=== PATIENT | female | born 1945 | race Caucasian/White ===

== ENCOUNTER → 2017-06-08 | Outpatient (CLI) | payer MEDICARE ==
[~2017-06-08] MED LIST: CITA20; HYDR7.5T32 OR; LATA.005%O OU; SYNT25TA PO; TRAV0.00 EACH EYE; [UNRECOGNIZED DRUG - CODE] XX; [UNRECOGNIZED DRUG - CODE] XX
--- NOTE | 2017-06-09 09:56 | MB ---
cc: Henrik Shin MD DATE: 06/08/2017 VOLUMES: Dynamic. FVC and FEV1 normal, static. FRC, RV, TLC normal. TIDAL FLOWS: FEV 1% normal. FEF 25-75 moderately reduced. DIFFUSION: Moderately reduced. FLOW VOLUME LOOP: Terminal airflow obstruction. INTERPRETATION: Mild obstructive ventilatory defect with no hyperinflation and mild to moderate reduction in diffusion. No improvement postbronchodilator. R. MD PACO Valle/EVAN , 09:37 AM , 09:55 AM
== END ==
LOC: HRSP 10:51
PROVIDERS: ATTEND Internal Medicine
DX: J44.9 Chronic obstructive pulmonary disease, unspecified (principal)
CPT/HCPCS: 94060; 94618; 94726; 94729

== ENCOUNTER 2017-09-03 12:06 | Inpatient (IN) ==
[2017-09-03 13:07] LABS: Baso % (Auto) 0.7 % (0.0-2.0); Eos # (Auto) 0.2 th/mm3 (0.0-0.4); Eos % (Auto) 3.7 % (0.0-4.0); Hematocrit 39.1 % (35.0-46.0); Hemoglobin 13.2 gm/dL (11.6-15.3); Lymph # (Auto) 0.5 th/mm3 (1.0-4.8); Lymph % (Auto) 8.5 % (9.0-44.0); Mean Corpuscular HGB Conc 33.8 % (32.0-36.0); Mean Corpuscular Hemoglobin 33.2 pg (27.0-34.0); Mean Corpuscular Volume 98.1 fL (80.0-100.0); Mean Platelet Volume 7.1 fL (7.0-11.0); Mono # (Auto) 0.4 th/mm3 (0.0-0.9); Mono % (Auto) 6.5 % (0.0-8.0); Neut # (Auto) 5.1 th/mm3 (1.8-7.7); Neut % (Auto) 80.6 % (16.0-70.0); Platelet Count 268 th/mm3 (150-450); Red Blood Count 3.99 mil/mm3 (4.00-5.30); Red Cell Distribution Width 13.3 % (11.6-17.2); White Blood Count 6.4 th/mm3 (4.0-11.0)
--- NOTE | 2017-09-03 13:27 | XR ---
EXAM DATE: 09/03/2017 1:08 PM EDT AGE/SEX: 71 years / Female INDICATIONS: . Chest pain and shortness of breath. CLINICAL DATA: This is the patient's initial encounter. Patient reports that signs and symptoms have been present for 4 - 6 days and indicates a pain score of 5/10. MEDICAL/SURGICAL HISTORY: None. None. COMPARISON: [facility], XR CHEST PA AND LAT, 04/26/2017. . FINDINGS: There is mild haziness to the perivascular structures most likely pulmonary edema. Slight cardiomegaly seen. Focal consolidation is not seen. CONCLUSION: Slight to moderate CHF. Electronically signed by: Juani Hernadez MD 09/03/2017 1:26 PM EDT
[2017-09-03 13:32] LABS: Alanine Aminotransferase 16 U/L (10-53); Albumin 3.2 g/dL (3.4-5.0); Anion Gap 10 meq/L (5-15); Aspartate Aminotransferase 49 U/L (15-37); Blood Urea Nitrogen 10 mg/dL (7-18); Calcium 9.2 mg/dL (8.5-10.1); Carbon Dioxide 25.3 meq/L (21.0-32.0); Chloride 106 meq/L (98-107); Glomerular Filtration Rate 83 mL/min (>89); Glucose,Random 145 mg/dL (74-106); Magnesium 1.8 mg/dL (1.5-2.5); Potassium 3.4 meq/L (3.5-5.1); Sodium 141 meq/L (136-145)
[2017-09-03 13:33] LABS: Alkaline Phosphatase 96 U/L (45-117); Total Protein 6.9 g/dL (6.4-8.2)
--- NOTE | 2017-09-03 13:44 | ED ---
HPI General Chief Complaint: Shortness of Breath/Dyspnea Stated Complaint: Respiratory Time Seen by Provider: 09/03/17 12:40 Source: patient Mode of arrival: EMS Limitations: no limitations History of Present Illness Patient is a 71-year-old female presenting to the emergency department for evaluation of shortness of breath. Patient states it started Monday. Progressively the symptoms got worse and on Monday afternoon she started nebulizer treatments. She states initially this felt as if it was helping however she still became short of breath with any exertion. When symptoms did not resolve this morning after another nebulizer treatment patient called 911 was brought to the emergency department for evaluation. Patient stated that she cannot even walk to the bathroom without getting winded. She states her symptoms are similar to her COPD exacerbations in the past. Patient denies any chest pain but reports tightness as if she cannot get a deep breath. She also reports a productive cough. Patient denies any fever, chills, nausea, vomiting , headache. MD Complaint: shortness of breath and cough Context: occurred during exertion Severity: similar to previous episodes Consistency/Duration: constant and progressively worsening Relieving factors: rest Exacerbating factors: exertion Known history of: COPD Associated symptoms: cough, sputum production and chest congestion Treatment prior to arrival: bronchodilator Related Data Home Medications Medication Instructions Recorded Confirmed albuterol sulfate [ProAir HFA] 2 puff INHALATION Q4H PRN 09/03/17 09/03/17 alprazolam 0.5 mg PO DAILY PRN 09/03/17 09/03/17 ascorbic acid (vitamin C) [Vitamin 1,000 mg PO Q12H 09/03/17 09/03/17 C] brinzolamide-brimonidine 1 drp OPHTHALMIC (EYE) TID 09/03/17 09/03/17 [Simbrinza] calcium carbonate [Calcium 600] 600 mg PO BID 09/03/17 09/03/17 celecoxib [Celebrex] 100 mg PO BID 09/03/17 09/03/17 citalopram 40 mg PO DAILY 09/03/17 09/03/17 difluprednate [Durezol] 1 drp OPHTHALMIC (EYE) DAILY 09/03/17 09/03/17 fluticasone 2 spray INTRANASAL DAILY 09/03/17 09/03/17 fluticasone-vilanterol [Breo 1 inh INHALATION DAILY 09/03/17 09/03/17 Ellipta] gabapentin 300 mg PO BID 09/03/17 09/03/17 hydrocodone-acetaminophen 1 tab PO Q4-6H PRN 09/03/17 09/03/17 ipratropium-albuterol 3 ml INHALATION QID 09/03/17 09/03/17 levothyroxine 50 mcg PO DAILY 09/03/17 09/03/17 morphine 30 mg PO DAILY 09/03/17 09/03/17 tizanidine 2 mg PO BID PRN 09/03/17 09/03/17 vitamin Q76-[id number] acid 1 tab PO DAILY 09/03/17 09/03/17 Allergies Allergy/AdvReac Type Severity Reaction Status Date / Time levofloxacin [From Levaquin] AdvReac Swelling Verified 09/03/17 12:23 ADALAT Allergy Severe RACES HEART Uncoded 09/03/17 12:23 Review of Systems Except as stated in HPI: all other systems reviewed are negative [facility] Medical History Medical History Fracture of left wrist (Acute) Fracture, fibula (Acute) Fracture, ribs (Acute) Fractured sternum (Acute) H/O: hysterectomy (Acute) History of ectopic (Acute) History of fractured rib (Acute) COPD (chronic obstructive pulmonary disease) (Chronic) Surgical History Surgical History History of eye surgery (Acute) History of thoracotomy (Acute) History of tonsillectomy (Acute) Hx of partial adrenalectomy (Acute) Social History Social History Substance History: No History of Abuse Second Hand Smoke Exposure: No Smoking Status: Never smoker How Often Do You Have a Drink Containing Alcohol: Never Recent Travel in [facility] within the Last 8 Weeks: No Recent Out of Country Travel within the Last 8 Weeks: No Immunization History Tetanus Immunization: Unsure Hx Influenza Vaccine This Season: Yes Exam Narrative Exam Narrative: GENERAL: Well-developed, well-nourished, alert elderly female. Presenting in no acute distress. SKIN: Focused skin assessment warm/dry. HEAD: Atraumatic. Normocephalic. EYES: Pupils equal and round. No scleral icterus. No injection or drainage. ENT: No nasal bleeding or discharge. Mucous membranes pink and moist. NECK: Trachea midline. No JVD. CARDIOVASCULAR: Tachycardic. No murmur appreciated. RESPIRATORY: No accessory muscle use. Diminished in bases bilaterally. Tachypneic GASTROINTESTINAL: Abdomen soft, non-tender, nondistended. Hepatic and splenic margins not palpable. MUSCULOSKELETAL: No obvious deformities. No clubbing. No cyanosis. No edema. NEUROLOGICAL: Awake and alert. No obvious cranial nerve deficits. Motor grossly within normal limits. Normal speech. PSYCHIATRIC: Appropriate mood and affect; insight and judgment normal. Course Initial Documented Vital Signs Temperature 98.2 F 09/03/17 12:16 Pulse Rate 114 H 09/03/17 12:16 Respiratory Rate 23 09/03/17 12:16 Blood Pressure 145/97 H 09/03/17 12:16 Pulse Oximetry 93 L 09/03/17 12:16 Last Documented Vital Signs Temperature 98.2 F 09/03/17 12:16 Pulse Rate 99 H 09/03/17 16:00 Respiratory Rate 22 09/03/17 16:00 Blood Pressure 125/71 09/03/17 16:00 Pulse Oximetry 92 L 09/03/17 16:53 Medical Decision Making LISBETH Attestation LISBETH supervised visit: Yes Attestation: I, Dr. Cortez, have reviewed the advance practice practitioner's documentation and am in agreement, met with the patient face to face, made the diagnosis, and the medical decision making was done by me. *My assessment and Findings: This patient presented for dyspnea. She has been treated in the emergency department. She was then walked but failed a walking test. She is amenable to admission for further treatment. Please see Yris Cardenas NP's note for a more detailed H&P, final diagnosis and disposition MDM Narrative Medical decision making narrative: Patient is a 71-year-old female presenting for evaluation of shortness of breath. Patient is tachycardic and tachypneic on arrival. Labs and imaging ordered and pending. Chest x-ray shows slight to moderate congestive heart failure. Labs reviewed, no acute findings identified other than a BNP of 217. Patient was given Lasix 40 mg IV 1 dose. Patient was placed on 2 L of oxygen via nasal cannula, heart rate has trended down and her O2 sat is 95%. Patient was ambulated without oxygen and her oxygen saturation dropped to 71%. Patient will be admitted for COPD exacerbation. Discussed with Dr. Stein who accepted admit. Lab Data Lab results reviewed: Yes I reviewed the patient's lab results. Result diagrams: 09/03/17 12:50 09/03/17 12:50 Lab Results 09/03/17 09/03/17 09/03/17 Range/Units 12:50 12:50 14:55 WBC 6.4 (4.0-11.0) th/mm3 RBC 3.99 L (4.00-5.30) mil/mm3 Hgb 13.2 (11.6-15.3) gm/dL Hct 39.1 (35.0-46.0) % MCV 98.1 (80.0-100.0) fL MCH 33.2 (27.0-34.0) pg MCHC 33.8 (32.0-36.0) % RDW 13.3 (11.6-17.2) % Plt Count 268 (150-450) th/mm3 MPV 7.1 (7.0-11.0) fL Neut % (Auto) 80.6 H (16.0-70.0) % Lymph % (Auto) 8.5 L (9.0-44.0) % [place] % (Auto) 6.5 (0.0-8.0) % Eos % (Auto) 3.7 (0.0-4.0) % Baso % (Auto) 0.7 (0.0-2.0) % Neut # (Auto) 5.1 (1.8-7.7) th/mm3 Lymph # (Auto) 0.5 L (1.0-4.8) th/mm3 [place] # (Auto) 0.4 (0.0-0.9) th/mm3 Eos # (Auto) 0.2 (0.0-0.4) th/mm3 Baso # (Auto) 0.0 (0.0-0.2) th/mm3 WBC Differential . Differential Comment Auto diff final Sodium 141 (136-145) meq/L Potassium 3.4 L (3.5-5.1) meq/L Chloride 106 (98-107) meq/L Carbon Dioxide 25.3 (21.0-32.0) meq/L Anion Gap 10 (5-15) meq/L BUN 10 (7-18) mg/dL Creatinine 0.70 (0.50-1.00) mg/dL Estimated GFR 83 L (>89) mL/min Random Glucose 145 H (74-106) mg/dL Calcium 9.2 (8.5-10.1) mg/dL Magnesium 1.8 (1.5-2.5) mg/dL Total Bilirubin 0.7 (0.2-1.0) mg/dL AST 49 H (15-37) U/L ALT 16 (10-53) U/L Alkaline Phosphatase 96 (45-117) U/L Troponin I 0.04 (0.02-0.05) ng/mL B-Natriuretic Peptide (0-100) pg/mL Total Protein 6.9 (6.4-8.2) g/dL Albumin 3.2 L (3.4-5.0) g/dL 09/03/17 Range/Units 14:55 WBC (4.0-11.0) th/mm3 RBC (4.00-5.30) mil/mm3 Hgb (11.6-15.3) gm/dL Hct (35.0-46.0) % MCV (80.0-100.0) fL MCH (27.0-34.0) pg MCHC (32.0-36.0) % RDW (11.6-17.2) % Plt Count (150-450) th/mm3 MPV (7.0-11.0) fL Neut % (Auto) (16.0-70.0) % Lymph % (Auto) (9.0-44.0) % [place] % (Auto) (0.0-8.0) % Eos % (Auto) (0.0-4.0) % Baso % (Auto) (0.0-2.0) % Neut # (Auto) (1.8-7.7) th/mm3 Lymph # (Auto) (1.0-4.8) th/mm3 [place] # (Auto) (0.0-0.9) th/mm3 Eos # (Auto) (0.0-0.4) th/mm3 Baso # (Auto) (0.0-0.2) th/mm3 WBC Differential Differential Comment Sodium (136-145) meq/L Potassium (3.5-5.1) meq/L Chloride (98-107) meq/L Carbon Dioxide (21.0-32.0) meq/L Anion Gap (5-15) meq/L BUN (7-18) mg/dL Creatinine (0.50-1.00) mg/dL Estimated GFR (>89) mL/min Random Glucose (74-106) mg/dL Calcium (8.5-10.1) mg/dL Magnesium (1.5-2.5) mg/dL Total Bilirubin (0.2-1.0) mg/dL AST (15-37) U/L ALT (10-53) U/L Alkaline Phosphatase (45-117) U/L Troponin I (0.02-0.05) ng/mL B-Natriuretic Peptide 217 H (0-100) pg/mL Total Protein (6.4-8.2) g/dL Albumin (3.4-5.0) g/dL Imaging Data Radiologist's impression: Chest X-Ray 09/03/17 12:40 CONCLUSION: Slight to moderate CHF. Reviewed radiology reports Discharge Plan Discharge Disposition Patient Disposition: 30 Still Patient Discharge Condition Condition: Stable Discharge Details Diagnosis: COPD exacerbation Physicians Team ED Provider: Jhoana Cortez ED Midlevel Provider: Yris Lopes Primary Care Provider: Tono Delgado Other Providers: Satya Shin Rxs /Orders / Referrals /Forms Prescriptions: No Action ipratropium-albuterol 0.5 mg-3 mg(2.5 mg base)/3 mL Solution For Nebulization 3 ml INHALATION QID RF: 0 tizanidine 2 mg Tablet 2 mg PO BID PRN (Reason: Spasms) RF: 0 citalopram 40 mg Tablet 40 mg PO DAILY RF: 0 hydrocodone-acetaminophen 5-325 mg Tablet 1 tab PO Q4-6H PRN (Reason: Anxiety) RF: 0 ascorbic acid (vitamin C) [Vitamin C] 1,000 mg Tablet Extended Release 1,000 mg PO Q12H RF: 0 alprazolam 0.5 mg Tablet 0.5 mg PO DAILY PRN (Reason: Anxiety) RF: 0 calcium carbonate [Calcium 600] 600 mg calcium (1,500 mg) Tablet 600 mg PO BID RF: 0 levothyroxine 50 mcg Tablet 50 mcg PO DAILY RF: 0 gabapentin 300 mg Capsule 300 mg PO BID RF: 0 albuterol sulfate [ProAir HFA] 90 mcg/actuation Hfa Aerosol Inhaler 2 puff INHALATION Q4H PRN (Reason: Shortness Of Breath) RF: 0 celecoxib [Celebrex] 100 mg Capsule 100 mg PO BID RF: 0 morphine 15 mg Tablet 30 mg PO DAILY RF: 0 fluticasone 50 mcg/actuation [place],Suspension 2 spray INTRANASAL DAILY RF: 0 difluprednate [Durezol] 0.05 % Drops 1 drp OPHTHALMIC (EYE) DAILY RF: 0 vitamin Y80-hpmvp acid 500-400 mcg Tablet 1 tab PO DAILY RF: 0 brinzolamide-brimonidine [Simbrinza] 1-0.2 % Drops,Suspension 1 drp OPHTHALMIC (EYE) TID RF: 0 fluticasone-vilanterol [Breo Ellipta] 100-25 mcg/dose Blister With Device 1 inh INHALATION DAILY RF: 0 Status ED Status: Admitted Patient
[2017-09-03] MEDS ORDERED: Bisacodyl 10 MG Supp RECTAL PRN (17:21)
[2017-09-03] MEDS ORDERED: Azithromycin Inj 500 MG in Sodium Chlor 0.9% Inj 250 ML IV.SIG ONE (17:38)
[2017-09-03] MEDS: MethylPREDNISolone Sod Succinate Inj 125 MG/2 ML Vial IV.PUSH SCH ×2 (18:43→23:52)
--- NOTE | 2017-09-03 18:53 | P.HPIM ---
History of Present Illness Primary Care Physician: Tono Delgado DO History of Present Illness: 71-year-old female with a history of COPD, who presents with a 3 day history of progressively worsening shortness of breath on exertion, cough productive of bradley sputum. He says that her shortness of breath seem to be worse in the morning, however does not seem to be worse with lying down. Denies any fevers. She does report a single episode of nausea with nonbloody vomiting yesterday. Denies any sick contacts. She denies any lightheadedness, dizziness. Denies any diarrhea or constipation. She denies any peripheral edema. Denies any history of heart problems. She denies any chest pain. Review of Systems Family history reviewed with the patient and found to be currently noncontributory. All other systems reviewed negative except as stated in [facility]PI [facility] - History History Provided By: Patient - Medical History Medical History: Medical History (Last Updated 09/03/17 @ 13:47 by KIRSTIN Chavarria) Fracture of left wrist Fracture, fibula Fracture, ribs Fractured sternum H/O: hysterectomy History of ectopic History of fractured rib COPD (chronic obstructive pulmonary disease) - Surgical History Surgical History: Surgical History (Last Reviewed 09/03/17 @ 13:46 by KIRSTIN Chavarria) History of eye surgery History of thoracotomy History of tonsillectomy Hx of partial adrenalectomy - Tobacco History Second Hand Smoke Exposure: No Tobacco Use In Past 30 Days: No Smoking Status: Never smoker - Alcohol History How Often Do You Have a Drink Containing Alcohol: Never - Substance Use History Substance History: No History of Abuse - Travel History Recent Travel in the [place] Within the Last 8 Weeks: No Recent Travel Out of the Country Within the Last 8 Weeks: No - Immunization History Tetanus Immunization: Unsure Hx Influenza Vaccine This Season: Yes Medications and Allergies Active Medications: Active Medications Al Hydroxide/Mg Hydroxide (Milk Of Sahil Liq) 30 ml PO Q12H PRN PRN Reason: Mild Constipation Bisacodyl (Dulcolax Supp) 10 mg RECTAL DAILY PRN PRN Reason: SEVERE CONSITIPATION Furosemide (Lasix Inj) 20 mg IV.PUSH BID@0900,1800 GENIA Last Admin: 09/03/17 18:43 Dose: 20 mg Ipratropium [place] (Atrovent Neb) 0.5 mg NEB Q6HR NEB PRN PRN Reason: SHORTNESS OF BREATH Lactulose (Lactulose Liq) 30 ml PO DAILY PRN PRN Reason: SEVERE CONSITIPATION Levothyroxine Sodium (Synthroid) 50 mcg PO DAILY GENIA Methylprednisolone Sodium Succinate (Solumedrol Inj) 60 mg IV.PUSH Q6H GENIA Last Admin: 09/03/17 18:43 Dose: 60 mg Sennosides (Senokot) 17.2 mg PO Q12H PRN PRN Reason: Moderate Constipation Sodium Chloride (Ns Flush) 2 ml IV.FLUSH PRN PRN PRN Reason: FLUSH AFTER USING IV ACCESS Last Admin: 09/03/17 17:03 Dose: 2 ml Sodium Chloride (Ns Flush) 2 ml IV.FLUSH BID GENIA Sodium Chloride (Ns Flush) 2 ml IV.FLUSH PRN PRN PRN Reason: FLUSH AFTER USING IV ACCESS Allergies Allergy/AdvReac Type Severity Reaction Status Date / Time levofloxacin [From Levaquin] AdvReac Swelling Verified 09/03/17 12:23 ADALAT Allergy Severe RACES HEART Uncoded 09/03/17 12:23 Home Medications Medication Instructions Recorded Confirmed Type albuterol sulfate [ProAir HFA] 2 puff INHALATION Q4H PRN 09/03/17 09/03/17 History alprazolam 0.5 mg PO DAILY PRN 09/03/17 09/03/17 History artificial tear([id number]) 1 drp OPHTHALMIC (EYE) Q2-4H PRN 09/03/17 History ascorbic acid (vitamin C) [Vitamin 1,000 mg PO Q12H 09/03/17 09/03/17 History C] brinzolamide-brimonidine 1 drp OPHTHALMIC (EYE) TID 09/03/17 09/03/17 History [Simbrinza] calcium carbonate [Calcium 600] 600 mg PO BID 09/03/17 09/03/17 History celecoxib [Celebrex] 100 mg PO BID 09/03/17 09/03/17 History citalopram 40 mg PO DAILY 09/03/17 09/03/17 History difluprednate [Durezol] 1 drp OPHTHALMIC (EYE) DAILY 09/03/17 09/03/17 History fluticasone 2 spray INTRANASAL DAILY 09/03/17 09/03/17 History fluticasone-vilanterol [Breo 1 inh INHALATION DAILY 09/03/17 09/03/17 History Ellipta] gabapentin 300 mg PO BID 09/03/17 09/03/17 History hydrocodone-acetaminophen 1 tab PO Q4-6H PRN 09/03/17 09/03/17 History ipratropium-albuterol 3 ml INHALATION QID 09/03/17 09/03/17 History levothyroxine 50 mcg PO DAILY 09/03/17 09/03/17 History morphine 30 mg PO DAILY 09/03/17 09/03/17 History tizanidine 2 mg PO BID PRN 09/03/17 09/03/17 History vitamin I64-pvvao acid 1 tab PO DAILY 09/03/17 09/03/17 History Exam Vital signs: Vital Signs 09/03/17 12:16 09/03/17 13:42 09/03/17 16:00 Temperature 98.2 F Pulse Rate 114 H 100 H 99 H Respiratory Rate 23 18 22 Blood Pressure 145/97 H 125/71 Pulse Oximetry 93 L 95 94 L 09/03/17 16:53 Temperature Pulse Rate Respiratory Rate Blood Pressure Pulse Oximetry 92 L Intake & Output 09/02/17 09/03/17 09/03/17 18:59 06:59 18:59 Weight 54.885 kg Narrative: GENERAL: Patient sitting up in bed. Appears comfortable. Alert and oriented 3. SKIN: Warm and dry. HEAD: Atraumatic. Normocephalic. EYES: Pupils equal and round. No scleral icterus. No injection or drainage. ENT: No nasal bleeding or discharge. Mucous membranes pink and moist. NECK: Trachea midline. No JVD. CARDIOVASCULAR: Regular rate and rhythm. RESPIRATORY: No accessory muscle use. Wheezing and rhonchi bilaterally. Breath sounds equal bilaterally. GASTROINTESTINAL: Abdomen soft, non-tender, nondistended. Hepatic and splenic margins not palpable. MUSCULOSKELETAL: Extremities without clubbing, cyanosis, or edema. No obvious deformities. NEUROLOGICAL: Awake and alert. No obvious cranial nerve deficits. Motor grossly within normal limits. Five out of 5 muscle strength in the arms and legs. Normal speech. PSYCHIATRIC: Appropriate mood and affect; insight and judgment normal. Results - Labs CBC & Chem 7: 09/03/17 12:50 09/03/17 12:50 Labs: Short CBC 09/03/17 Range/Units 12:50 WBC 6.4 (4.0-11.0) th/mm3 Hgb 13.2 (11.6-15.3) gm/dL Hct 39.1 (35.0-46.0) % Plt Count 268 (150-450) th/mm3 BMP 09/03/17 12:50 Sodium 141 Potassium 3.4 L Chloride 106 Carbon Dioxide 25.3 BUN 10 Creatinine 0.70 Calcium 9.2 Cardiac Enzymes 09/03/17 Range/Units 14:55 Troponin I 0.04 (0.02-0.05) ng/mL Liver Function 09/03/17 Range/Units 12:50 Total Bilirubin 0.7 (0.2-1.0) mg/dL AST 49 H (15-37) U/L ALT 16 (10-53) U/L Alkaline Phosphatase 96 (45-117) U/L Albumin 3.2 L (3.4-5.0) g/dL - Imaging Impressions Chest X-Ray 09/03/17 12:40 CONCLUSION: Slight to moderate CHF. Caprini VTE Risk Assessment Caprini VTE Risk Assessment: Moderate/High Risk (score >= 2) Caprini Risk Assessment Model: Point Value = 1 Point Value = 2 Point Value = 3 Point Value = 5 Age 41-60 Minor surgery BMI > 25 kg/m2 Swollen legs Varicose veins or History of unexplained or recurrent spontaneous Oral contraceptives or hormone replacement Sepsis (< 1 month) Serious lung disease, including pneumonia (< 1 month) Abnormal pulmonary function Acute myocardial infarction Congestive heart failure (< 1 month) History of inflammatory bowel disease Medical patient at bed rest Age 61-74 Arthroscopic surgery Major open surgery (> 45 min) Laparoscopic surgery (> 45 min) Malignancy Confined to bed (> 72 hours) Immobilizing plaster cast Central venous access Age >= 75 History of VTE Family history of VTE Factor V Leiden Prothrombin [id number] Lupus anticoagulant Anticardiolipin antibodies Elevated serum homocysteine Heparin-induced thrombocytopenia Other congenital or acquired thrombophilia Stroke (< 1 month) Elective arthroplasty Hip, pelvis, or leg fracture Acute spinal cord injury (< 1 month) Prophylaxis Regimen: Total Risk Factor Score Risk Level Prophylaxis Regimen 0-1 Low Early ambulation 2 Moderate Order ONE of the following: *Sequential Compression Device (SCD) *Heparin 5000 units SQ BID 3-4 Higher Order ONE of the following medications: *Heparin 5000 units SQ TID *Enoxaparin/Lovenox 40 mg SQ daily (WT < 150 kg, CrCl > 30 mL/min) *Enoxaparin/Lovenox 30 mg SQ daily (WT < 150 kg, CrCl > 10-29 mL/min) *Enoxaparin/Lovenox 30 mg SQ BID (WT < 150 kg, CrCl > 30 mL/min) AND/OR *Sequential Compression Device (SCD) 5 or more Highest Order ONE of the following medications: *Heparin 5000 units SQ TID (Preferred with Epidurals) *Enoxaparin/Lovenox 40 mg SQ daily (WT < 150 kg, CrCl > 30 mL/min) *Enoxaparin/Lovenox 30 mg SQ daily (WT < 150 kg, CrCl > 10-29 mL/min) *Enoxaparin/Lovenox 30 mg SQ BID (WT < 150 kg, CrCl > 30 mL/min) AND *Sequential Compression Device (SCD) Assessment and Plan - Plan //Sepsis with tachypnea, tachycardia, pneumonia //Community-acquired pneumonia //Atypical pneumonia //COPD exacerbation //Potential CHF exacerbation. BNP 200s = Chest x-ray with bilateral airspace disease. Radiologist has read this as CHF , however could be atypical pneumonia versus aspiration pneumonia secondary to nausea and vomiting the day prior to admission. = Steroids, nebs. = We will treat for atypical pneumonia with azithromycin, as well as aspiration pneumonia to cover anaerobes with Unasyn IV. = BNP in the 200s. Schedule Lasix. Will place on fluid restrictions. No chest pain, however troponin not undetectable at 0.04 check EKG. Echocardiogram ordered and pending. = Continue duo nebs, steroids. Consult patient's cis coordinator, Dr. Shin. //Glaucoma. Continue patient's home medications. //Chronic pain. Will hold off on narcotics for now in the setting of COPD exacerbation. Discussed Condition With: Patient, nurse, ED physician.
[2017-09-03] MEDS: Ampicillin/Sulbactam Inj 3 GM in Sodium Chloride 0.9% Inj 100 ML IV.SIG SCH (22:32)
[2017-09-03] MEDS: ALPRAZolam 0.5 MG Tablet PO PRN (22:33)
[2017-09-04] MEDS: Ampicillin/Sulbactam Inj 3 GM in Sodium Chloride 0.9% Inj 100 ML IV.SIG SCH ×4 (05:21→23:06)
[2017-09-04] MEDS: MethylPREDNISolone Sod Succinate Inj 125 MG/2 ML Vial IV.PUSH SCH ×3 (05:39→23:04)
[2017-09-04] MEDS ORDERED: Acetaminophen 325 MG Tablet PO ONE (05:53)
[2017-09-04 07:07] LABS: Baso % (Auto) 0.1 % (0.0-2.0); Hematocrit 41.6 % (35.0-46.0); Hemoglobin 14.4 gm/dL (11.6-15.3); Lymph # (Auto) 0.7 th/mm3 (1.0-4.8); Lymph % (Auto) 8.2 % (9.0-44.0); Mean Corpuscular HGB Conc 34.6 % (32.0-36.0); Mean Corpuscular Hemoglobin 33.8 pg (27.0-34.0); Mean Corpuscular Volume 97.8 fL (80.0-100.0); Mono # (Auto) 0.3 th/mm3 (0.0-0.9); Mono % (Auto) 3.5 % (0.0-8.0); Neut # (Auto) 7.1 th/mm3 (1.8-7.7); Neut % (Auto) 88.2 % (16.0-70.0); Platelet Count 326 th/mm3 (150-450); Red Blood Count 4.25 mil/mm3 (4.00-5.30); Red Cell Distribution Width 13.2 % (11.6-17.2)
[2017-09-04 07:40] LABS: Albumin 3.7 g/dL (3.4-5.0); Anion Gap 9 meq/L (5-15); Aspartate Aminotransferase 44 U/L (15-37); Blood Urea Nitrogen 13 mg/dL (7-18); Carbon Dioxide 27.2 meq/L (21.0-32.0); Chloride 100 meq/L (98-107); Glomerular Filtration Rate 75 mL/min (>89); Glucose,Random 149 mg/dL (74-106); Potassium 3.9 meq/L (3.5-5.1); Sodium 136 meq/L (136-145)
[2017-09-04 07:43] LABS: Alanine Aminotransferase 19 U/L (10-53); Alkaline Phosphatase 104 U/L (45-117); Total Protein 7.8 g/dL (6.4-8.2)
[2017-09-04] MEDS ORDERED: Levothyroxine 50 MCG Tablet PO SCH (09:00)
[2017-09-04] MEDS ORDERED: BRINZOLAMIDE BRIMONIDINE EACH EYE SCH (09:00)
[2017-09-04] MEDS ORDERED: PT:SIMBRINZA OPTH SOL EACH EYE SCH (09:00)
[2017-09-04] MEDS ORDERED: DIFLUPREDNATE EACH EYE SCH (09:00)
--- NOTE | 2017-09-04 16:37 | P.PN ---
Subjective Interval history: Follow up: COPD, PNA, CHF Patient reports breathing is a little better, continues to have SOB. family member at bedside reports patient now able to talk in full sentences which is an improvement from yesterday Physical Exam Vital signs: Vital Signs 09/03/17 16:53 09/03/17 19:26 09/03/17 22:42 Temperature 98.3 F Pulse Rate 102 H 112 H Respiratory Rate 28 H Blood Pressure 120/73 157/103 H Pulse Oximetry 92 L 97 92 L 09/03/17 22:46 09/04/17 00:50 09/04/17 04:00 Temperature 97.4 F L 97.6 F Pulse Rate 101 H 71 88 Respiratory Rate 24 18 18 Blood Pressure 130/66 148/79 H Pulse Oximetry 95 93 L 09/04/17 08:00 09/04/17 08:59 Temperature 97.7 F Pulse Rate 79 94 H Respiratory Rate 16 22 Blood Pressure 130/71 Pulse Oximetry 95 92 L Intake & Output 09/03/17 09/04/17 09/04/17 18:59 06:59 18:59 Intake Total 340 / 340 240 / 240 Balance 340 / 340 240 / 240 Weight 54.885 kg 54.885 kg Intake: IV 100 / 100 Unasyn Inj 3 GM In NS Inj 100 100 / 100 ML @ 200 mls/hr IV.SIG Q6H [facility] Rx#:[id number] Oral 240 / 240 240 / 240 Other: # Voids 2 # Urine Diapers 1 Date of Last Bowel Movement 09/02/17 Weight On Admission 56.6 kg Narrative: GENERAL: Patient sitting up in bed. Appears comfortable. Alert and oriented 3. CARDIOVASCULAR: Regular rate and rhythm. RESPIRATORY: diminished and coarse bilaterally. GASTROINTESTINAL: Abdomen soft, non-tender, nondistended. MUSCULOSKELETAL: Extremities without clubbing, cyanosis, or edema. No obvious deformities. NEUROLOGICAL: Awake and alert. No obvious cranial nerve deficits. Motor grossly within normal limits. Five out of 5 muscle strength in the arms and legs. Normal speech. PSYCHIATRIC: Appropriate mood and affect; insight and judgment normal. Results - Labs CBC & Chem 7: 09/04/17 06:45 09/04/17 06:45 Laboratory Results - last 24 hr 09/03/17 09/03/17 09/04/17 19:20 21:55 06:45 WBC 8.0 RBC 4.25 Hgb 14.4 Hct 41.6 MCV 97.8 MCH 33.8 MCHC 34.6 RDW 13.2 Plt Count 326 MPV 7.0 Neut % (Auto) 88.2 H Lymph % (Auto) 8.2 L [place] % (Auto) 3.5 Eos % (Auto) 0.0 Baso % (Auto) 0.1 Neut # (Auto) 7.1 Lymph # (Auto) 0.7 L [place] # (Auto) 0.3 Eos # (Auto) 0.0 Baso # (Auto) 0.0 WBC Differential . Differential Comment Auto diff final Sodium Potassium Chloride Carbon Dioxide Anion Gap BUN Creatinine Estimated GFR Random Glucose Lactic Acid 2.4 H 2.1 H Calcium Total Bilirubin AST ALT Alkaline Phosphatase Total Protein Albumin 09/04/17 06:45 WBC RBC Hgb Hct MCV MCH MCHC RDW Plt Count MPV Neut % (Auto) Lymph % (Auto) [place] % (Auto) Eos % (Auto) Baso % (Auto) Neut # (Auto) Lymph # (Auto) [place] # (Auto) Eos # (Auto) Baso # (Auto) WBC Differential Differential Comment Sodium 136 Potassium 3.9 Chloride 100 Carbon Dioxide 27.2 Anion Gap 9 BUN 13 Creatinine 0.76 Estimated GFR 75 L Random Glucose 149 H Lactic Acid Calcium 9.0 Total Bilirubin 0.7 AST 44 H ALT 19 Alkaline Phosphatase 104 Total Protein 7.8 D Albumin 3.7 Assessment and Plan - Plan Sepsis with tachypnea, tachycardia, pneumonia Community-acquired pneumonia Atypical pneumonia COPD exacerbation Potential CHF exacerbation. BNP 200s = Chest x-ray with bilateral airspace disease. Radiologist has read this as CHF , however could be atypical pneumonia versus aspiration pneumonia secondary to nausea and vomiting the day prior to admission. = Steroids, nebs. = We will treat for atypical pneumonia with azithromycin, as well as aspiration pneumonia to cover anaerobes with Unasyn IV. = BNP in the 200s. Schedule Lasix. Will place on fluid restrictions. No chest pain, however troponin not undetectable at 0.04 check EKG. Echocardiogram ordered and pending. = Continue duo nebs, steroids. Consult patient's laser printing operator, Dr. Shin. //Glaucoma. Continue patient's home medications. //Chronic pain. resume home norco Discussed Condition With: Supervising physician Dr. Bajwa
--- NOTE | 2017-09-04 21:02 | ECHRPT ---
Indication: HEART FAILURE CONCLUSIONS Normal left ventricular size. Wall thickness is normal. The left ventricular systolic function is normal with an estimated ejection fraction in the range o f 50-55%. No definite regional wall motion abnormalities are present. Possible atrial septal aneurysm is present (benign finding). Trace mitral valve regurgitation. Slight aortic valve sclerosis is present. There is trace tricuspid valve regurgitation. The estimated pulmonary arterial pressure is 17 mmHg. BP: / HR: Rhythm: Technical Quality: FINDINGS LEFT VENTRICLE Normal left ventricular size. Wall thickness is normal. The left ventricular systolic function is normal with an estimated ejection fraction in the range o f 50-55%. No definite regional wall motion abnormalities are present. RIGHT VENTRICLE Normal right ventricular size and systolic function. LEFT ATRIUM The left atrial size is normal. RIGHT ATRIUM The right atrial size is normal. ATRIAL SEPTUM Possible atrial septal aneurysm is present (benign finding). AORTA The aortic root and proximal ascending aorta are normal in size on limited imaging. MITRAL VALVE Mitral annular calcification is present. Trace mitral valve regurgitation. AORTIC VALVE Slight aortic valve sclerosis is present. TRICUSPID VALVE There is trace tricuspid valve regurgitation. The estimated pulmonary arterial pressure is 17 mmHg. PULMONARY VALVE The pulmonary valve is not well visualized. VESSELS The inferior vena cava is normal in size. PERICARDIUM No pericardial effusion. Otto Maciel MD (Electronically Signed) Final Date:04 September 2017 21:02
--- NOTE | 2017-09-04 22:08 | ECG ---
Date Performed: 09/03/2017 Time Performed: 14:49:32 PTAGE: 71 years EKG: Sinus rhythm MINIMAL ST DEPRESSION BORDERLINE ECG PREVIOUS TRACING : 02/25/2000 19.09 Since the previous tracing, no significant change noted DOCTOR: Cedrick Mckeon Interpretating Date/Time 09/04/2017 22:06:15
[2017-09-04] MEDS: Levothyroxine 50 MCG Tablet PO SCH (23:06)
[2017-09-04] MEDS: Azithromycin Inj 500 MG in Sodium Chlor 0.9% Inj 250 ML IV.SIG SCH (23:07)
[2017-09-05] MEDS: MethylPREDNISolone Sod Succinate Inj 125 MG/2 ML Vial IV.PUSH SCH ×4 (04:37→22:54)
[2017-09-05] MEDS: Ampicillin/Sulbactam Inj 3 GM in Sodium Chloride 0.9% Inj 100 ML IV.SIG SCH ×4 (04:37→22:55)
[2017-09-05 07:17] LABS: Baso % (Auto) 0.1 % (0.0-2.0); Hematocrit 41.2 % (35.0-46.0); Lymph # (Auto) 0.7 th/mm3 (1.0-4.8); Lymph % (Auto) 5.7 % (9.0-44.0); Mean Corpuscular HGB Conc 33.9 % (32.0-36.0); Mean Corpuscular Hemoglobin 33.5 pg (27.0-34.0); Mean Corpuscular Volume 98.8 fL (80.0-100.0); Mean Platelet Volume 7.2 fL (7.0-11.0); Mono # (Auto) 0.5 th/mm3 (0.0-0.9); Mono % (Auto) 3.8 % (0.0-8.0); Neut # (Auto) 10.6 th/mm3 (1.8-7.7); Neut % (Auto) 90.4 % (16.0-70.0); Platelet Count 349 th/mm3 (150-450); Red Blood Count 4.17 mil/mm3 (4.00-5.30); Red Cell Distribution Width 13.4 % (11.6-17.2); White Blood Count 11.8 th/mm3 (4.0-11.0)
[2017-09-05 08:31] LABS: Calcium 9.1 mg/dL (8.5-10.1); Carbon Dioxide 28.7 meq/L (21.0-32.0); Potassium 3.5 meq/L (3.5-5.1)
[2017-09-05] MEDS: ALPRAZolam 0.5 MG Tablet PO PRN (10:02)
--- NOTE | 2017-09-05 11:28 | P.PN ---
Subjective Interval history: Follow up: COPD, PNA, CHF Patient reports breathing is a little better, continues to have SOB with exertion. Patient concerned regarding DC as she has a flight to [facility] planned on Monday Physical Exam Vital signs: Vital Signs 09/04/17 12:00 09/04/17 16:00 09/04/17 20:00 Temperature 97.5 F L 97.7 F 97.3 F L Pulse Rate 86 66 82 Respiratory Rate 16 18 18 Blood Pressure 136/71 104/52 L 105/54 L Pulse Oximetry 93 L 92 L 92 L 09/05/17 00:00 09/05/17 01:30 09/05/17 04:00 Temperature 97.2 F L 97.2 F L Pulse Rate 62 72 Respiratory Rate 17 15 17 Blood Pressure 109/58 L 108/58 L Pulse Oximetry 93 L 95 09/05/17 06:12 Temperature Pulse Rate 78 Respiratory Rate 22 Blood Pressure Pulse Oximetry Intake & Output 09/04/17 09/05/17 09/05/17 18:59 06:59 18:59 Intake Total 960 / 960 100 / 100 Balance 960 / 960 100 / 100 Intake: IV 100 / 100 100 / 100 Unasyn Inj 3 GM In NS Inj 100 100 / 100 100 / 100 ML @ 200 mls/hr IV.SIG Q6H [facility] Rx#:[id number] Oral 860 / 860 Other: # Voids 4 # Urine Diapers 1 Date of Last Bowel Movement 09/02/17 09/04/17 # Bowel Movements 2 Narrative: GENERAL: Patient sitting up in bed. Appears comfortable. Alert and oriented 3. CARDIOVASCULAR: Regular rate and rhythm. RESPIRATORY: diminished bilaterally. GASTROINTESTINAL: Abdomen soft, non-tender, nondistended. MUSCULOSKELETAL: Extremities without clubbing, cyanosis, or edema. No obvious deformities. NEUROLOGICAL: Awake and alert. No obvious cranial nerve deficits. Motor grossly within normal limits. Five out of 5 muscle strength in the arms and legs. Normal speech. PSYCHIATRIC: Appropriate mood and affect; insight and judgment normal. Results - Labs CBC & Chem 7: 09/05/17 05:56 09/05/17 05:56 Laboratory Results - last 24 hr 09/05/17 09/05/17 05:56 05:56 WBC 11.8 H RBC 4.17 Hgb 14.0 Hct 41.2 MCV 98.8 MCH 33.5 MCHC 33.9 RDW 13.4 Plt Count 349 MPV 7.2 Neut % (Auto) 90.4 H Lymph % (Auto) 5.7 L [place] % (Auto) 3.8 Eos % (Auto) 0.0 Baso % (Auto) 0.1 Neut # (Auto) 10.6 H Lymph # (Auto) 0.7 L [place] # (Auto) 0.5 Eos # (Auto) 0.0 Baso # (Auto) 0.0 WBC Differential . Differential Comment Auto diff final Sodium 139 Potassium 3.5 Chloride 101 Carbon Dioxide 28.7 Anion Gap 9 BUN 22 H Creatinine 0.79 Estimated GFR 72 L Random Glucose 132 H Calcium 9.1 Microbiology 09/04/17 19:15 Urine - Random Urine Streptococcus pneumoniae Antigen (M - Final Presumptive negative for streptococcus pneumoniae antigen, suggesting no current or recent infection. Infection due to Streptococcus pneumoniae cannot be ruled out since the antigen present in the sample may be below the detection limit of the test. 09/04/17 19:15 Urine - Random Urine Legionella Antigen - Final Presumptive negative for Legionella pneumophila serogroup 1 antigen in urine, suggesting no recent or recurrent infection. Infection due to Legionella cannot be ruled out since other serogroups and species may cause disease, antigen may not be present in urine in early infection, and the level of antigen present in the urine may be below the detection limit of the test. Assessment and Plan - Plan Sepsis with tachypnea, tachycardia, pneumonia Community-acquired pneumonia Atypical pneumonia COPD exacerbation - Chest x-ray with bilateral airspace disease. Radiologist has read this as CHF , however could be atypical pneumonia versus aspiration pneumonia secondary to nausea and vomiting the day prior to admission. - add mucinex - sputum culture pending - We will treat for atypical pneumonia with azithromycin, as well as aspiration pneumonia to cover anaerobes with Unasyn IV. - Continue duo nebs, steroids. Consult patient's eye care professional, Dr. Shin. Potential CHF exacerbation. BNP 200s on admission Echocardiogram: Normal left ventricular size. Wall thickness is normal. The left ventricular systolic function is normal with an estimated ejection fraction in the range of 50-55%. No definite regional wall motion abnormalities are present. Possible atrial septal aneurysm is present (benign finding). Trace mitral valve regurgitation. Slight aortic valve sclerosis is present. There is trace tricuspid valve regurgitation. The estimated pulmonary arterial pressure is 17 mmHg. - Patient has been on Lasix 20 mg IV BID, BUN 22 today - will DC lasix - DC fluid restriction - DC cardiac diet, allow caffeine, patient reports caffeine withdraw headache Glaucoma. Continue patient's home medications. Chronic pain. resume home carlos Discussed Condition With: Supervising physician Dr. Weber
--- NOTE | 2017-09-05 15:01 | MB ---
cc: Henrik Shin MD DATE: 09/05/2017 HISTORY OF PRESENT ILLNESS: Ms. Shukla is a 71-year-old white female known to me with mild COPD, was actually on a nebulized aerosol treatment once a day, in good condition until about a week ago when she developed increasing shortness of breath with cough and some sputum, generally clear. She had also been vaping marijuana liquid legitimately prescribed locally for severe lumbosacral degenerative arthritis and spinal stenosis. We had discussed that in the office and I explained to her that it could cause respiratory symptoms, conceivably an exacerbation of her disease. She stopped as soon as she began to get short of breath. Two days before admission, she was also exposed to "flu", a person that she apparently associates with who had [place] from [place] and had been sick and was treated for this respiratory illness. She had no hemoptysis, no chest pain, no swelling in her legs and she has no significant prior cardiovascular history. On presentation, she was dyspneic and chest x-ray revealed hazy perihilar infiltrate, so she was admitted for pneumonia. She has been started on Zithromax and Unasyn, IV corticosteroids and p.r.n. Atrovent and is feeling better. She has used Breo in the past, although she had discontinued that recently because her pulmonary functions were only very mildly abnormal. PAST MEDICAL HISTORY: A number of fractured bones in the past, a history of hysterectomy and ectopic and underlying COPD. PAST SURGICAL HISTORY: She had a thoracotomy for benign disease and an adrenalectomy for cancer. HABITS: She was a prior smoker, but has quit. No recent travel, although she is hoping to travel to [place] next week to visit family. ALLERGIES: LEVAQUIN. SOCIAL HISTORY: Lives alone, manages her own affairs. No alcohol use. No illicit drug use, although, as mentioned above, she had been prescribed liquid marijuana for inhalation. MEDICATIONS: Reviewed in the EMR. REVIEW OF SYSTEMS: Other than that noted above, she had had no nausea, vomiting, abdominal pain, change in bowel habits ,swelling in her legs, orthopnea, PND, chills or sweats. PHYSICAL EXAMINATION: GENERAL: She is awake, alert, very comfortable at rest. Says she is feeling better than she was on admission. VITAL SIGNS: She is afebrile. Her pulse is 80, her respirations are 18, and her O2 saturation is 95% on 2 liters. Blood pressure 108/60. HEENT: Sclerae are anicteric. NECK: Neck veins are flat. CHEST: Does reveal scattered congestion with some faint wheezes. CARDIAC: Regular heart rhythm. No harsh murmur. ABDOMEN: Soft. EXTREMITIES: No peripheral edema or calf tenderness. Sequential compression hose in place. IMAGING STUDIES: Chest x-ray reveals hazy perihilar infiltrates. LABORATORY DATA: White count on admission was 6400, currently 11.8; hemoglobin normal. BUN and creatinine normal. BNP was very mildly elevated at 217. Echocardiogram is normal. MICROBIOLOGY STUDIES: She has a sputum pending. Strep pneumonia and legionella antigens, urinary negative. DISCUSSION: Ms. Shukla presented with what appears to be an exacerbation of underlying chronic obstructive pulmonary disease which based on prior pulmonary functions was actually quite mild, but she was quite symptomatic on presentation. She is improved with bronchodilators and corticosteroids as well as antibiotics. There may be some relationship to the vaping of marijuana liquid, so she is going to discontinue that. I explained to her today that we will continue this therapy for the next 24-48 hours, but I cannot be certain that she will be able to make this [place]antic flight scheduled for early next week. I will do a followup chest x-ray tomorrow as well as a 6-minute walk test. I have added Breo back into her regimen and a routine of nebulized aerosol treatments t.i.d. If stable tomorrow, we will switch her to oral medication and see how she does. Further diagnostic and/or therapeutic intervention will depend on her ongoing clinical course. R. MD PACO Valle/ROSAS , 02:26 PM , 02:36 PM
[2017-09-05] MEDS: guaiFENesin 600 MG ER Tablet PO SCH ×2 (16:24→22:52)
[2017-09-05] MEDS: Levothyroxine 50 MCG Tablet PO SCH (22:52)
[2017-09-06] MEDS: Azithromycin Inj 500 MG in Sodium Chlor 0.9% Inj 250 ML IV.SIG SCH ×2 (06:32→22:26)
[2017-09-06] MEDS: MethylPREDNISolone Sod Succinate Inj 125 MG/2 ML Vial IV.PUSH SCH ×4 (06:32→21:01)
[2017-09-06] MEDS: Ampicillin/Sulbactam Inj 3 GM in Sodium Chloride 0.9% Inj 100 ML IV.SIG SCH ×4 (06:33→21:00)
[2017-09-06 07:00] LABS: Baso % (Auto) 0.1 % (0.0-2.0); Hematocrit 39.2 % (35.0-46.0); Hemoglobin 13.6 gm/dL (11.6-15.3); Lymph # (Auto) 0.7 th/mm3 (1.0-4.8); Lymph % (Auto) 7.8 % (9.0-44.0); Mean Corpuscular HGB Conc 34.8 % (32.0-36.0); Mean Corpuscular Volume 97.6 fL (80.0-100.0); Mean Platelet Volume 7.1 fL (7.0-11.0); Mono # (Auto) 0.4 th/mm3 (0.0-0.9); Mono % (Auto) 4.6 % (0.0-8.0); Neut # (Auto) 8.4 th/mm3 (1.8-7.7); Neut % (Auto) 87.5 % (16.0-70.0); Platelet Count 306 th/mm3 (150-450); Red Blood Count 4.02 mil/mm3 (4.00-5.30); Red Cell Distribution Width 13.4 % (11.6-17.2); White Blood Count 9.6 th/mm3 (4.0-11.0)
[2017-09-06 07:09] LABS: Calcium 8.9 mg/dL (8.5-10.1); Carbon Dioxide 30.7 meq/L (21.0-32.0); Potassium 3.9 meq/L (3.5-5.1)
--- NOTE | 2017-09-06 09:51 | XR ---
EXAM DATE: 09/06/2017 9:45 AM EDT AGE/SEX: 71 years / Female INDICATIONS: . Pneumonia. CLINICAL DATA: This is the patient's initial encounter. Patient reports that signs and symptoms have been present for 3 days and indicates a pain score of 0/10. MEDICAL/SURGICAL HISTORY: Chronic obstructive pulmonary disease. emphysema, asthma , chronic br onchitis. None. COMPARISON: [facility] [place], CHEST 2V PA&LAT, 09/03/2017. . FINDINGS: There is slight improved aeration though patchy bilateral airspace disease and interstitial infiltrat e remaining. S-shaped thoracolumbar scoliosis and degenerative changes. Remote right-sided rib fractu res. Plate and screw fixation of the clavicle on the left. CONCLUSION: Slight improved aeration. Electronically signed by: Miguel Angel Vann MD 09/06/2017 9:49 AM EDT
[2017-09-06] MEDS: guaiFENesin 600 MG ER Tablet PO SCH ×2 (10:06→21:01)
[2017-09-06] MEDS: ALPRAZolam 0.5 MG Tablet PO PRN (13:40)
--- NOTE | 2017-09-06 14:55 | P.PN ---
Subjective Interval history: Follow up for pneumonia, COPD. The patient reports mild improvement overnight. Still with a cough, now mostly dry and nonproductive. Still with wheezing, slowly improving. Denies fevers/chills. Denies any current shortness of breath while at rest but states she frequently gets "spells" of dyspnea, worse with exertion. O2 sat 97% on 2L NC. She states she attempted walk test yesterday and her O2 sat dropped to 82%. She does not wear oxygen at home. She has no other medical complaints at this time. Physical Exam Vital signs: Vital Signs 09/05/17 15:51 09/05/17 16:00 09/05/17 17:24 Temperature 97.6 F Pulse Rate 63 Respiratory Rate 20 Blood Pressure 124/60 Pulse Oximetry 92 L 92 L Pulse Oximetry [Exertion on Room Air] 82 L Pulse Oximetry [Resting on Room Air] 88 L Pulse Oximetry [Resting with Oxygen] 92 L 09/05/17 20:00 09/06/17 00:00 09/06/17 01:30 Temperature 97.6 F 97.6 F Pulse Rate 77 58 L Respiratory Rate 21 20 15 Blood Pressure 131/71 124/59 L Pulse Oximetry 93 L 93 L Pulse Oximetry [Exertion on Room Air] Pulse Oximetry [Resting on Room Air] Pulse Oximetry [Resting with Oxygen] 09/06/17 04:00 09/06/17 08:00 09/06/17 10:11 Temperature 97.3 F L 97.6 F Pulse Rate 67 62 Respiratory Rate 19 24 Blood Pressure 128/59 L 139/63 Pulse Oximetry 97 97 97 Pulse Oximetry [Exertion on Room Air] Pulse Oximetry [Resting on Room Air] Pulse Oximetry [Resting with Oxygen] 09/06/17 13:15 Temperature Pulse Rate 79 Respiratory Rate 18 Blood Pressure Pulse Oximetry Pulse Oximetry [Exertion on Room Air] Pulse Oximetry [Resting on Room Air] Pulse Oximetry [Resting with Oxygen] Intake & Output 09/05/17 09/06/17 09/06/17 18:59 06:59 18:59 Intake Total 920 / 920 700 / 700 100 / 100 Balance 920 / 920 700 / 700 100 / 100 Weight 54.88 kg Intake: IV 200 / 200 100 / 100 100 / 100 Unasyn Inj 3 GM In NS Inj 100 200 / 200 100 / 100 100 / 100 ML @ 200 mls/hr IV.SIG Q6H [facility] Rx#:[id number] Oral 720 / 720 600 / 600 Other: # Voids 4 2 Date of Last Bowel Movement 09/04/17 09/04/17 # Bowel Movements 2 Narrative: GENERAL: Well-nourished, well-developed pleasant female patient in [facility]. SKIN: Warm and dry. No rash. HEENT: Normocephalic. Atraumatic. Pupils equal and round. Mucous membranes pink and moist. CARDIOVASCULAR: Regular rate and rhythm. No murmur appreciated. RESPIRATORY: No accessory muscle use. Expiratory wheezes throughout with scattered rhonchi, worse at the bases. Breath sounds equal bilaterally. GASTROINTESTINAL: Abdomen soft, non-tender, nondistended. Normoactive bowel sounds x4. MUSCULOSKELETAL: No obvious deformities. Extremities without clubbing, cyanosis , or edema. NEUROLOGICAL: Awake and alert. No obvious cranial nerve deficits. Motor grossly within normal limits. Moving all extremities spontaneously. Normal speech. PSYCHIATRIC: Appropriate mood and affect; insight and judgment normal. Results - Labs CBC & Chem 7: 09/06/17 06:03 09/06/17 06:03 Laboratory Results - last 24 hr 09/06/17 09/06/17 06:03 06:03 WBC 9.6 RBC 4.02 Hgb 13.6 Hct 39.2 MCV 97.6 MCH 34.0 MCHC 34.8 RDW 13.4 Plt Count 306 MPV 7.1 Neut % (Auto) 87.5 H Lymph % (Auto) 7.8 L [place] % (Auto) 4.6 Eos % (Auto) 0.0 Baso % (Auto) 0.1 Neut # (Auto) 8.4 H Lymph # (Auto) 0.7 L [place] # (Auto) 0.4 Eos # (Auto) 0.0 Baso # (Auto) 0.0 WBC Differential . Differential Comment Auto diff final Sodium 139 Potassium 3.9 Chloride 103 Carbon Dioxide 30.7 Anion Gap 5 BUN 18 Creatinine 0.67 Estimated GFR 87 L Random Glucose 144 H Calcium 8.9 Microbiology 09/05/17 05:38 Sputum - Expectorated Sputum Gram Stain - Final 09/05/17 05:38 Sputum - Expectorated Sputum Sputum Culture - Preliminary Rare growth normal respiratory mathew at 24 hours - Imaging Impressions Chest X-Ray 09/06/17 00:00 CONCLUSION: Slight improved aeration. Assessment and Plan - Plan 71-year-old female with history of COPD presents with 3 day history of worsening shortness of breath, productive cough. Sepsis with Community-acquired pneumonia vs atypical pneumonia (tachypneic, tachycardic upon arrival) Acute COPD exacerbation -CXR reviewed, shows bilateral airspace disease; Radiologist read this as CHF, however could be atypical pneumonia versus aspiration pneumonia secondary to nausea and vomiting the day prior to admission. -Treat for atypical pneumonia with Azithro, and cover for aspiration pneumonia with IV Unasyn (patient with N/V prior to admission) -Continue mucinex -Sputum culture pending -Continue duo nebs -Continue steroids with IV Solumedrol 60mg q6h -Consult patient's cargo station worker, Dr. Shin, appreciate recommendations -Patient failed home O2 walk test with O2 sat 82%; home O2 ordered Potential CHF exacerbation. -BNP 200s on admission -Echocardiogram shows EF 50-55%, trace mitral valve regurgitation; trace tricuspid valve regurgitation. -Patient has been on Lasix 20 mg IV BID, no signs of fluid overload, will DC lasix -DC fluid restriction -DC cardiac diet, allow caffeine, patient reports caffeine withdraw headache -stable, no signs of fluid overload, doubt CHF Glaucoma: Continue patient's home medications. Chronic pain: resume home norco DVT Prophylaxis: Lovenox sq Discharge Planning: Discharge pending further clinical improvement, arrangements of home oxygen, and clearance from pulmonology. Possible d/c in 1-2 days if clinically improved.
[2017-09-06] MEDS: Levothyroxine 50 MCG Tablet PO SCH (21:01)
[2017-09-07] MEDS: MethylPREDNISolone Sod Succinate Inj 125 MG/2 ML Vial IV.PUSH SCH ×4 (03:40→22:34)
[2017-09-07] MEDS: Ampicillin/Sulbactam Inj 3 GM in Sodium Chloride 0.9% Inj 100 ML IV.SIG SCH ×4 (03:41→22:37)
[2017-09-07] MEDS ORDERED: Enoxaparin Inj 40 MG/0.4 ML Syringe SQ SCH (09:00)
[2017-09-07] MEDS: guaiFENesin 600 MG ER Tablet PO SCH ×2 (10:01→22:36)
--- NOTE | 2017-09-07 10:16 | P.PN ---
Subjective Interval history: Nursing denies any deterioration since last night. Patient reports she is able to ambulate to the bathroom and within her room without difficulty. She says at baseline she is able to swim with only periodic rests needed. Physical Exam Vital signs: Vital Signs 09/06/17 12:00 09/06/17 13:15 09/06/17 16:00 Temperature 97.6 F 97.7 F Pulse Rate 88 79 69 Respiratory Rate 24 18 20 Blood Pressure 118/56 L 145/65 H Pulse Oximetry 95 95 09/06/17 19:04 09/06/17 19:49 09/06/17 20:00 Temperature 98.0 F Pulse Rate 73 69 79 Respiratory Rate 18 20 Blood Pressure 139/64 Pulse Oximetry 95 95 09/06/17 20:56 09/06/17 23:46 09/07/17 02:00 Temperature 97.5 F L Pulse Rate 71 54 L Respiratory Rate 18 Blood Pressure 130/73 Pulse Oximetry 95 97 09/07/17 04:03 09/07/17 05:03 09/07/17 08:00 Temperature 97.4 F L 97.3 F L Pulse Rate 63 60 68 Respiratory Rate 18 14 Blood Pressure 142/63 H 125/58 L Pulse Oximetry 96 94 L 09/07/17 09:15 Temperature Pulse Rate 68 Respiratory Rate 12 Blood Pressure Pulse Oximetry 95 Intake & Output 09/06/17 09/07/17 09/07/17 18:59 06:59 18:59 Intake Total 1380 / 1380 830 / 830 100 / 100 Balance 1380 / 1380 830 / 830 100 / 100 Weight 54.8 kg Intake: IV 550 / 550 350 / 350 100 / 100 Unasyn Inj 3 GM In NS Inj 100 300 / 300 100 / 100 100 / 100 ML @ 200 mls/hr IV.SIG Q6H [facility] Rx#:[id number] Azithromycin Inj 500 MG In NS 250 / 250 250 / 250 Inj 250 ML @ 250 mls/hr IV.SIG Q24H [facility] Rx#:[id number] Oral 830 / 830 480 / 480 Other: # Voids 3 2 Date of Last Bowel Movement 09/06/17 09/06/17 # Bowel Movements 2 0 Narrative: Good aeration, unlabored breathing, expiratory wheezing heard with mildly diminished breath sounds sounds in the bases No acute distress, awake, alert, on nasal cannula Results - Labs CBC & Chem 7: 09/06/17 06:03 09/06/17 06:03 Microbiology 09/05/17 05:38 Sputum - Expectorated Sputum Gram Stain - Final 09/05/17 05:38 Sputum - Expectorated Sputum Sputum Culture - Final Light growth normal respiratory mathew Assessment and Plan - Plan 71-year-old female with history of COPD presents with 3 day history of worsening shortness of breath, productive cough. Sepsis with Community-acquired pneumonia vs atypical pneumonia (tachypneic, tachycardic upon arrival) - BC negative. - tx PNA as below Acute COPD exacerbation 2/2 PNA Acute hypoxic respiratory failure -Improving O2 levels, now on 1 L NC at 95% -Treat for atypical pneumonia with Azithro, and cover for aspiration pneumonia with IV Unasyn (patient with N/V prior to admission) -Continue mucinex -Sputum culture and urinary antigens negative -Continue duo nebs -We will de-escalate steroids to every q8 hrs -Pulmonology following - REPEAT walk test in next 24-48 hrs. may eventually stabilize on RA. Glaucoma: Continue patient's home medications. Chronic pain: home norco DVT Prophylaxis: Lovenox sq Discharge Planning: per clearance with Gen surg
[2017-09-07] MEDS: ALPRAZolam 0.5 MG Tablet PO PRN (12:10)
--- NOTE | 2017-09-07 12:31 | MD ---
cc: Henrik Shin MD DATE OF DISCHARGE: 09/07/2017 HOSPITAL COURSE: Ms. Shukla is a 71-year-old white female known to me with COPD who had been very stable up to the time of admission. She was exposed to a sick person about 3 days before she developed cough with sputum and increasing shortness of breath. She was also vaping marijuana for chronic low back pain, which may have been a contributing factor. She presented and was admitted with a chest x-ray, which revealed a hazy perihilar infiltrates consistent with pneumonia. Her hospital course was uncomplicated. She was treated with intravenous antibiotics, Albuterol and Atrovent nebulization and was started back on Breo, which she had been on as an outpatient. IV steroids were also included and she has been on oxygen. The patient had hoped to travel next week. She had a preplanned trip to [facility], but unfortunately oxygen saturations are still dropping into the low 80s with minimal exertion and she will have to cancel that trip and reschedule. She certainly cannot travel at this point. PHYSICAL EXAM: However, she is much improved, stable. Room air saturation at rest is about 90%, which is an improvement. She is afebrile. Her blood pressure is 125/60. She is breathing at about 12-14 per minute and her heart rate is 70. CHEST: Actually quite clear, a few basilar rales, but no other congestion, no rhonchi, no wheezing. No edema. Sputum revealed light normal mathew that was on antibiotics. Pneumococcal and legionella antigens were negative. White count is stable at 9.6. I will be away for several days, so I have reviewed my discharge plan with the patient today. She will have to go home on oxygen. I suggest she uses it continuously until I see her back in the office in about 7-10 days. She will need a followup chest x-ray as the chest x-ray we did here still shows patchy infiltrates, although it is stable. She will need to be changed over to an oral antibiotic to complete 10 days of therapy and oral prednisone tapered over 7-10 days. She will continue her nebulizer at home, Breo, as well. I will defer discharge plan otherwise to the hospitalist. Hopefully, over the next 48-72 hours, she will be ready to go. I have reviewed all of this with the nurse, as well. She knows to call my office next week for followup. R. MD PACO Valle/LUZMARIA , 12:15 PM , 12:22 PM
--- NOTE | 2017-09-07 14:59 | P.DCO ---
- Physical Therapy Order: Evaluate and treat - Speech Therapy Order: To improve: Speech and communication skills, Swallowing - Home Health Nursing Order: Signs/symptoms of disease process, Nursing assessment with vital signs - Certification I have seen patient Rosy Shukla on 09/07/17. My clinical findings support the need for the requested home health care services because: Deconditioned with increased weakness I certify that my clinical findings support that this patient is homebound because: Unsafe to leave home unassisted
[2017-09-07] MEDS: Levothyroxine 50 MCG Tablet PO SCH (22:36)
[2017-09-08] MEDS: Azithromycin Inj 500 MG in Sodium Chlor 0.9% Inj 250 ML IV.SIG SCH (00:11)
[2017-09-08] MEDS: Ampicillin/Sulbactam Inj 3 GM in Sodium Chloride 0.9% Inj 100 ML IV.SIG SCH ×2 (05:27→09:34)
[2017-09-08] MEDS: MethylPREDNISolone Sod Succinate Inj 125 MG/2 ML Vial IV.PUSH SCH (05:28)
[2017-09-08] MEDS: guaiFENesin 600 MG ER Tablet PO SCH ×2 (08:37→20:11)
[2017-09-08 09:04] VITALS: RESP 18
[2017-09-08] MEDS ORDERED: Dextrose 50% in Water 50 ML Vial IV.PUSH PRN (11:30)
--- NOTE | 2017-09-08 11:33 | P.PN ---
Subjective Interval history: F/U [employer] and PNA. Dyspnea on exertion even with minimal activity. Has not been ambulating in the hallway. On nasal cannula. Peak flow of 1500 Physical Exam Vital signs: Vital Signs 09/07/17 12:00 09/07/17 14:11 09/07/17 14:12 Temperature 97.5 F L Pulse Rate 81 74 Respiratory Rate 16 12 Blood Pressure 141/75 H Pulse Oximetry 94 L 95 09/07/17 16:00 09/07/17 19:51 09/07/17 20:00 Temperature 97.8 F 97.7 F Pulse Rate 73 67 76 Respiratory Rate 16 18 Blood Pressure 130/63 145/53 H Pulse Oximetry 93 L 94 L 09/07/17 20:02 09/07/17 20:20 09/07/17 22:00 Temperature Pulse Rate 74 Respiratory Rate 16 18 Blood Pressure Pulse Oximetry 97 09/08/17 00:04 09/08/17 01:26 09/08/17 04:02 Temperature Pulse Rate 66 60 Respiratory Rate 18 Blood Pressure Pulse Oximetry 09/08/17 05:29 09/08/17 06:07 09/08/17 08:00 Temperature 97.4 F L 97.6 F Pulse Rate 58 L 63 Respiratory Rate 18 17 16 Blood Pressure 166/75 H 155/74 H Pulse Oximetry 95 09/08/17 09:00 09/08/17 09:02 Temperature Pulse Rate 80 84 Respiratory Rate 18 Blood Pressure Pulse Oximetry 95 Intake & Output 09/07/17 09/08/17 09/08/17 18:59 06:59 18:59 Intake Total 300 / 300 100 / 100 350 / 350 Balance 300 / 300 100 / 100 350 / 350 Intake: IV 300 / 300 100 / 100 350 / 350 Unasyn Inj 3 GM In NS Inj 100 300 / 300 100 / 100 100 / 100 ML @ 200 mls/hr IV.SIG Q6H [facility] Rx#:[id number] Azithromycin Inj 500 MG In NS 250 / 250 Inj 250 ML @ 250 mls/hr IV.SIG Q24H [facility] Rx#:[id number] Other: # Voids 6 Date of Last Bowel Movement 09/07/17 09/07/17 09/07/17 # Bowel Movements 2 Narrative: Good aeration, unlabored breathing, no expiratory wheezing heard No acute distress, awake, alert, on nasal cannula Results - Labs CBC & Chem 7: 08/01/18 06:03 09/06/17 06:03 Microbiology 09/05/17 05:38 Sputum - Expectorated Sputum Gram Stain - Final 09/05/17 05:38 Sputum - Expectorated Sputum Sputum Culture - Final Light growth normal respiratory mathew - Imaging ITS Impressions Chest X-Ray 09/06/17 00:00 CONCLUSION: Slight improved aeration. - Procedures none Assessment and Plan - Assessment (1) COPD exacerbation Code(s): J44.1 - Chronic obstructive pulmonary disease with (acute) exacerbation Status: Acute - Plan 71-year-old female with history of COPD presents with 3 day history of worsening shortness of breath, productive cough. Sepsis with Community-acquired pneumonia vs atypical pneumonia (tachypneic, tachycardic upon arrival). Resolved - BC negative. - tx PNA as below Acute COPD exacerbation 2/2 PNA Acute hypoxic respiratory failure -Improving O2 levels, now on 1 L NC at 95% -Treat for atypical pneumonia with Azithro, and cover for aspiration pneumonia with IV Unasyn (patient with N/V prior to admission) -Continue mucinex -Sputum culture and urinary antigens negative -Continue duo nebs -Improving but still significantly dyspneic not ready for dc. PT eval increase exercise tolerance and switch to po augmentin and prednisone -Pulmonology following Glaucoma: Continue patient's home medications. Chronic pain: home norco DVT Prophylaxis: Lovenox sq Discharge Planning: Home in 1-2 days
[2017-09-08] MEDS: predniSONE 20 MG Tablet PO SCH (12:32)
[2017-09-08] MEDS: ALPRAZolam 0.5 MG Tablet PO PRN (12:33)
[2017-09-08 17:08] LABS: Hemoglobin A1c 5.2 % (4.3-6.0)
[2017-09-08] MEDS: Levothyroxine 50 MCG Tablet PO SCH (20:10)
[2017-09-08] MEDS: Amoxicillin/Clavulanate 875/125 MG Tablet PO SCH (20:10)
[2017-09-08] MEDS: Gabapentin 300 MG Capsule PO SCH (20:11)
--- NOTE | 2017-09-08 21:03 | P.PNPL ---
Subjective Interval history: 71 YOWf with COPD exac, Pn breathing better Anxious Desaturates on ambulation Physical Exam Vital signs: Vital Signs 09/07/17 22:00 09/08/17 00:04 09/08/17 01:26 Temperature Pulse Rate 66 Respiratory Rate 18 18 Blood Pressure Pulse Oximetry Pulse Oximetry [Exertion on Room Air] Pulse Oximetry [Resting on Room Air] Pulse Oximetry [Resting with Oxygen] 09/08/17 04:02 09/08/17 05:29 09/08/17 06:07 Temperature 97.4 F L Pulse Rate 60 58 L Respiratory Rate 18 17 Blood Pressure 166/75 H Pulse Oximetry Pulse Oximetry [Exertion on Room Air] Pulse Oximetry [Resting on Room Air] Pulse Oximetry [Resting with Oxygen] 09/08/17 08:00 09/08/17 09:00 09/08/17 09:02 Temperature 97.6 F Pulse Rate 63 80 84 Respiratory Rate 16 18 Blood Pressure 155/74 H Pulse Oximetry 95 95 Pulse Oximetry [Exertion on Room Air] Pulse Oximetry [Resting on Room Air] Pulse Oximetry [Resting with Oxygen] 09/08/17 12:00 09/08/17 14:03 09/08/17 14:25 Temperature 97.7 F Pulse Rate 65 74 Respiratory Rate 15 18 Blood Pressure 147/65 H Pulse Oximetry 97 Pulse Oximetry [Exertion on Room Air] 87 L Pulse Oximetry [Resting on Room Air] 94 L Pulse Oximetry [Resting with Oxygen] 94 L 09/08/17 19:12 Temperature Pulse Rate 74 Respiratory Rate 18 Blood Pressure Pulse Oximetry 98 Pulse Oximetry [Exertion on Room Air] Pulse Oximetry [Resting on Room Air] Pulse Oximetry [Resting with Oxygen] Intake & Output 09/08/17 09/08/17 09/09/17 06:59 18:59 06:59 Intake Total 100 / 100 350 / 350 Balance 100 / 100 350 / 350 Intake: IV 100 / 100 350 / 350 Unasyn Inj 3 GM In NS Inj 100 100 / 100 100 / 100 ML @ 200 mls/hr IV.SIG Q6H [facility] Rx#:[id number] Azithromycin Inj 500 MG In NS 250 / 250 Inj 250 ML @ 250 mls/hr IV.SIG Q24H [facility] Rx#:[id number] Other: Date of Last Bowel Movement 09/07/17 09/07/17 09/08/17 GENERAL: Elderly WF, mild sob SKIN: Warm and dry. HEAD: Normocephalic. EYES: No scleral icterus. No injection or drainage. NECK: Supple, trachea midline. No JVD or lymphadenopathy. CARDIOVASCULAR: Regular rate and rhythm without murmurs, gallops, or rubs. RESPIRATORY: Breath sounds equal bilaterally. No accessory muscle use. GASTROINTESTINAL: Abdomen soft, non-tender, nondistended. MUSCULOSKELETAL: No cyanosis, or edema. BACK: Nontender without obvious deformity. No CVA tenderness. Assessment and Plan - Plan IMPRESSION: COPD Exac Pneumonia Anxiety Hypoxia PLAN: Aerosol nebs Cont Abx Supplement 02 Cont Steroids DC plans for home
[2017-09-09] MEDS: Amoxicillin/Clavulanate 875/125 MG Tablet PO SCH (07:59)
[2017-09-09] MEDS: guaiFENesin 600 MG ER Tablet PO SCH (07:59)
[2017-09-09] MEDS: predniSONE 20 MG Tablet PO SCH (08:00)
[2017-09-09] MEDS: Gabapentin 300 MG Capsule PO SCH (08:00)
[2017-09-09] MEDS ORDERED: Enoxaparin Inj 40 MG/0.4 ML Syringe SQ SCH (09:00)
--- NOTE | 2017-09-09 11:31 | P.PN ---
Subjective Interval history: Follow-up pneumonia. She is doing okay ambulating on nasal cannula. Physical Exam Vital signs: Vital Signs 09/08/17 12:00 09/08/17 14:03 09/08/17 14:25 Temperature 97.7 F Pulse Rate 65 74 Respiratory Rate 15 18 Blood Pressure 147/65 H Pulse Oximetry 97 Pulse Oximetry [Exertion on Room Air] 87 L Pulse Oximetry [Resting on Room Air] 94 L Pulse Oximetry [Resting with Oxygen] 94 L 09/08/17 19:12 09/08/17 19:58 09/08/17 20:00 Temperature 97.3 F L Pulse Rate 74 75 78 Respiratory Rate 18 17 Blood Pressure 121/62 Pulse Oximetry 98 97 Pulse Oximetry [Exertion on Room Air] Pulse Oximetry [Resting on Room Air] Pulse Oximetry [Resting with Oxygen] 09/08/17 23:53 09/09/17 00:00 09/09/17 01:55 Temperature 97.6 F Pulse Rate 64 72 Respiratory Rate 16 17 Blood Pressure 127/66 Pulse Oximetry 96 Pulse Oximetry [Exertion on Room Air] Pulse Oximetry [Resting on Room Air] Pulse Oximetry [Resting with Oxygen] 09/09/17 03:53 09/09/17 04:00 09/09/17 07:31 Temperature 97.3 F L Pulse Rate 59 L 69 Respiratory Rate 16 Blood Pressure 144/69 H Pulse Oximetry 95 94 L Pulse Oximetry [Exertion on Room Air] Pulse Oximetry [Resting on Room Air] Pulse Oximetry [Resting with Oxygen] 09/09/17 07:32 09/09/17 08:00 09/09/17 09:00 Temperature 97.5 F L Pulse Rate 75 74 64 Respiratory Rate 20 16 Blood Pressure 144/73 H Pulse Oximetry 90 L Pulse Oximetry [Exertion on Room Air] Pulse Oximetry [Resting on Room Air] Pulse Oximetry [Resting with Oxygen] Intake & Output 09/08/17 09/09/17 09/09/17 18:59 06:59 18:59 Intake Total 350 / 350 840 / 840 Output Total 6 / 6 Balance 350 / 350 834 / 834 Intake: IV 350 / 350 Unasyn Inj 3 GM In NS Inj 100 100 / 100 ML @ 200 mls/hr IV.SIG Q6H [facility] Rx#:[id number] Azithromycin Inj 500 MG In NS 250 / 250 Inj 250 ML @ 250 mls/hr IV.SIG Q24H [facility] Rx#:[id number] Oral 840 / 840 Output: Urine Other: Date of Last Bowel Movement 09/07/17 09/08/17 09/08/17 Narrative: Good aeration, unlabored breathing, no expiratory wheezing heard No acute distress, awake, alert, on nasal cannula Results - Labs CBC & Chem 7: 09/06/17 06:03 09/06/17 06:03 Laboratory Results - last 24 hr 09/08/17 09/08/17 09/08/17 12:15 12:23 17:58 POC Glucose 153 H 241 H Hemoglobin A1c 5.2 09/09/17 04:45 POC Glucose 97 Hemoglobin A1c - Procedures none Assessment and Plan - Assessment (1) COPD exacerbation Code(s): J44.1 - Chronic obstructive pulmonary disease with (acute) exacerbation Status: Acute - Plan 71-year-old female with history of COPD presents with 3 day history of worsening shortness of breath, productive cough. Sepsis with Community-acquired pneumonia vs atypical pneumonia (tachypneic, tachycardic upon arrival). Resolved - BC negative. - tx PNA as below Acute COPD exacerbation 2/2 PNA Acute hypoxic respiratory failure -Improving O2 levels, now on 1 L NC at 95% -Status post Azithro and IV Unasyn (patient with N/V prior to admission) -Continue mucinex -Sputum culture and urinary antigens negative -Continue duo nebs -Improving ct po augmentin and prednisone -Pulmonology following Glaucoma: Continue patient's home medications. Chronic pain: home norco DVT Prophylaxis: Lovenox sq Discharge Planning: Stable for discharge when arrangements made
--- NOTE | 2017-09-09 11:32 | P.DS ---
Date of admission: 09/03/17 18:54 Primary care physician: Tono Delgado DO Brief History from admission: 71-year-old female with a history of COPD, who presents with a 3 day history of progressively worsening shortness of breath on exertion, cough productive of bradley sputum. He says that her shortness of breath seem to be worse in the morning, however does not seem to be worse with lying down. Denies any fevers. She does report a single episode of nausea with nonbloody vomiting yesterday. Denies any sick contacts. She denies any lightheadedness, dizziness. Denies any diarrhea or constipation. She denies any peripheral edema. Denies any history of heart problems. She denies any chest pain. DS: Diagnosis - Discharge Diagnosis (1) COPD exacerbation Status: Acute DS: Medications - Discharge Medications Prescriptions: amoxicillin-pot clavulanate 1 tab PO Q12HR #5 tab prednisone 40 mg PO DAILY #12 tab DS: Summary Hospital Course: 71-year-old female with history of COPD presents with 3 day history of worsening shortness of breath, productive cough. Sepsis with Community-acquired pneumonia vs atypical pneumonia (tachypneic, tachycardic upon arrival). Resolved - BC negative. - tx PNA as below Acute COPD exacerbation 2/2 PNA Acute hypoxic respiratory failure -Improving O2 levels, now on 1 L NC at 95% -Status post Azithro and IV Unasyn (patient with N/V prior to admission) -Continue mucinex -Sputum culture and urinary antigens negative -Continue duo nebs -Improving ct po augmentin and prednisone -Pulmonology following Glaucoma: Continue patient's home medications. Chronic pain: home norco DVT Prophylaxis: Lovenox sq - Time Spent with Patient Total time spent providing and/or coordinating discharge services: Greater than 30 minutes - Quality: VTE Deep Vein Thrombosis/Pulmonary Embolism Present on Admission: No Exam Vital signs: Vital Signs 09/08/17 12:00 09/08/17 14:03 09/08/17 14:25 Temperature 97.7 F Pulse Rate 65 74 Respiratory Rate 15 18 Blood Pressure 147/65 H Pulse Oximetry 97 Pulse Oximetry [Exertion on Room Air] 87 L Pulse Oximetry [Resting on Room Air] 94 L Pulse Oximetry [Resting with Oxygen] 94 L 09/08/17 19:12 09/08/17 19:58 09/08/17 20:00 Temperature 97.3 F L Pulse Rate 74 75 78 Respiratory Rate 18 17 Blood Pressure 121/62 Pulse Oximetry 98 97 Pulse Oximetry [Exertion on Room Air] Pulse Oximetry [Resting on Room Air] Pulse Oximetry [Resting with Oxygen] 09/08/17 23:53 09/09/17 00:00 09/09/17 01:55 Temperature 97.6 F Pulse Rate 64 72 Respiratory Rate 16 17 Blood Pressure 127/66 Pulse Oximetry 96 Pulse Oximetry [Exertion on Room Air] Pulse Oximetry [Resting on Room Air] Pulse Oximetry [Resting with Oxygen] 09/09/17 03:53 09/09/17 04:00 09/09/17 07:31 Temperature 97.3 F L Pulse Rate 59 L 69 Respiratory Rate 16 Blood Pressure 144/69 H Pulse Oximetry 95 94 L Pulse Oximetry [Exertion on Room Air] Pulse Oximetry [Resting on Room Air] Pulse Oximetry [Resting with Oxygen] 09/09/17 07:32 09/09/17 08:00 09/09/17 09:00 Temperature 97.5 F L Pulse Rate 75 74 64 Respiratory Rate 20 16 Blood Pressure 144/73 H Pulse Oximetry 90 L Pulse Oximetry [Exertion on Room Air] Pulse Oximetry [Resting on Room Air] Pulse Oximetry [Resting with Oxygen] Intake & Output 09/08/17 09/09/17 09/09/17 18:59 06:59 18:59 Intake Total 350 / 350 840 / 840 Output Total 6 / 6 Balance 350 / 350 834 / 834 Intake: IV 350 / 350 Unasyn Inj 3 GM In NS Inj 100 100 / 100 ML @ 200 mls/hr IV.SIG Q6H [facility] Rx#:[id number] Azithromycin Inj 500 MG In NS 250 / 250 Inj 250 ML @ 250 mls/hr IV.SIG Q24H [facility] Rx#:[id number] Oral 840 / 840 Output: Urine / 6 Other: Date of Last Bowel Movement 09/07/17 09/08/17 09/08/17 Narrative: GENERAL: Well-developed SKIN: Warm and dry. HEAD: Normocephalic. EYES: No scleral icterus. No injection or drainage. NECK: Supple, trachea midline. No JVD or lymphadenopathy. CARDIOVASCULAR: Regular rate and rhythm without murmurs, gallops, or rubs. RESPIRATORY: Breath sounds equal bilaterally. No accessory muscle use. GASTROINTESTINAL: Abdomen soft, non-tender, nondistended. MUSCULOSKELETAL: No cyanosis, or edema. BACK: Nontender without obvious deformity. No CVA tenderness. Results Procedures completed during hospitalization: none Labs on day of discharge: Labs from last 24 hours 09/09/17 09/08/17 09/08/17 04:45 17:58 12:23 POC Glucose 97 241 H 153 H Hemoglobin A1c 09/08/17 12:15 POC Glucose Hemoglobin A1c 5.2 - Impressions ITS Impressions Chest X-Ray 09/06/17 00:00 CONCLUSION: Slight improved aeration. Discharge Plan - Discharge Disposition Patient Disposition: Disch /Home Health Service - Discharge Condition Condition: Stable - Discharge Order Discharge Orders: Discharge Order (Routine); Ordered 09/09/17 Ordered By: Guy Leslie - Physicians Team Primary Care Provider: Tono Delgado Attending Provider: Guy Leslie Other Providers: Satya Shin MD ; Tyrone Merino MD
[2017-09-09] MEDS: ALPRAZolam 0.5 MG Tablet PO PRN (12:14)
--- NOTE | 2017-09-09 13:14 | P.PNPL ---
Subjective Interval history: 71 YOWf with COPD exac, Pn breathing better Anxious Desaturates on ambulation " Anxious and worried that for third time she will have to cancell her planned [place] trip Physical Exam Vital signs: Vital Signs 09/08/17 14:03 09/08/17 14:25 09/08/17 19:12 Temperature Pulse Rate 74 74 Respiratory Rate 18 18 Blood Pressure Pulse Oximetry 98 Pulse Oximetry [Exertion on Room Air] 87 L Pulse Oximetry [Resting on Room Air] 94 L Pulse Oximetry [Resting with Oxygen] 94 L 09/08/17 19:58 09/08/17 20:00 09/08/17 23:53 Temperature 97.3 F L Pulse Rate 75 78 64 Respiratory Rate 17 Blood Pressure 121/62 Pulse Oximetry 97 Pulse Oximetry [Exertion on Room Air] Pulse Oximetry [Resting on Room Air] Pulse Oximetry [Resting with Oxygen] 09/09/17 00:00 09/09/17 01:55 09/09/17 03:53 Temperature 97.6 F Pulse Rate 72 59 L Respiratory Rate 16 17 Blood Pressure 127/66 Pulse Oximetry 96 Pulse Oximetry [Exertion on Room Air] Pulse Oximetry [Resting on Room Air] Pulse Oximetry [Resting with Oxygen] 09/09/17 04:00 09/09/17 07:31 09/09/17 07:32 Temperature 97.3 F L Pulse Rate 69 75 Respiratory Rate 16 20 Blood Pressure 144/69 H Pulse Oximetry 95 94 L Pulse Oximetry [Exertion on Room Air] Pulse Oximetry [Resting on Room Air] Pulse Oximetry [Resting with Oxygen] 09/09/17 08:00 09/09/17 09:00 09/09/17 12:00 Temperature 97.5 F L 97.8 F Pulse Rate 74 64 79 Respiratory Rate 16 16 Blood Pressure 144/73 H 131/64 Pulse Oximetry 90 L 96 Pulse Oximetry [Exertion on Room Air] Pulse Oximetry [Resting on Room Air] Pulse Oximetry [Resting with Oxygen] 09/09/17 12:01 Temperature Pulse Rate Respiratory Rate 18 Blood Pressure Pulse Oximetry Pulse Oximetry [Exertion on Room Air] Pulse Oximetry [Resting on Room Air] Pulse Oximetry [Resting with Oxygen] Intake & Output 09/08/17 09/09/17 09/09/17 18:59 06:59 18:59 Intake Total 350 / 350 840 / 840 Output Total 6 / 6 Balance 350 / 350 834 / 834 Intake: IV 350 / 350 Unasyn Inj 3 GM In NS Inj 100 100 / 100 ML @ 200 mls/hr IV.SIG Q6H [facility] Rx#:[id number] Azithromycin Inj 500 MG In NS 250 / 250 Inj 250 ML @ 250 mls/hr IV.SIG Q24H [facility] Rx#:[id number] Oral 840 / 840 Output: Urine 6 Other: Date of Last Bowel Movement 09/07/17 09/08/17 09/08/17 GENERAL: Anxious elderly female, NAD SKIN: Warm and dry. HEAD: Normocephalic. EYES: No scleral icterus. No injection or drainage. NECK: Supple, trachea midline. No JVD or lymphadenopathy. CARDIOVASCULAR: Regular rate and rhythm without murmurs, gallops, or rubs. RESPIRATORY: Breath sounds equal bilaterally. No accessory muscle use. GASTROINTESTINAL: Abdomen soft, non-tender, nondistended. MUSCULOSKELETAL: No cyanosis, or edema. BACK: Nontender without obvious deformity. No CVA tenderness. Assessment and Plan - Plan IMPRESSION: COPD Exac Pneumonia Anxiety Hypoxia PLAN: Aerosol nebs Cont Abx Supplement 02 Cont Steroids DC plans for home She will FU with
[2017-09-12 17:52] VITALS: BP 131/64; TEMP 97.8
[2017-09-12 18:08] VITALS: PULSE 79; O2SAT 96
== END 2017-09-09 16:04 | disposition home health service (06) ==
LOC: NEDA 12:06 → NEPD 12:06 → N06 09-04 00:35
PROVIDERS: ADMIT Internal Medicine; ATTEND Internal Medicine

== ENCOUNTER 2017-11-11 15:21 | Inpatient (IN) ==
--- NOTE | 2017-11-11 15:45 | ED ---
HPI General Chief complaint: Respiratory Symptoms Stated complaint: Resp Time Seen by Provider: 11/11/17 15:23 History of Present Illness HPI narrative: This patient is brought in by paramedics in profound respiratory distress. She has end-stage COPD and interstitial lung disease. While at rest she wears 4 L of nasal cannula but while walking or doing anything else at home she puts it up anywhere from 8-10 L. Paramedics gave her nebulizer route and IV steroids. She denies chest pain or productive cough or fever. Paramedics report that she is a DNR patient and has enrolled in [facility] hosp[facility]. Symptoms are severe. Duration 3 hours. No alleviating factors. Symptoms exacerbated by her chronic lung disease. Related Data Home Medications Medication Instructions Recorded Confirmed albuterol sulfate [ProAir HFA] 2 puff INHALATION Q4H PRN 09/03/17 11/11/17 alprazolam 0.5 mg PO DAILY PRN 09/03/17 11/11/17 artificial tear(godie-ttv-vwy) 1 drp OPHTHALMIC (EYE) Q2-4H PRN 09/03/17 ascorbic acid (vitamin C) [Vitamin 1,000 mg PO Q12H 09/03/17 11/11/17 C] calcium carbonate [Calcium 600] 600 mg PO BID 09/03/17 11/11/17 celecoxib [Celebrex] 100 mg PO BID 09/03/17 11/11/17 citalopram 40 mg PO DAILY 09/03/17 11/11/17 difluprednate [Durezol] 1 drp OPHTHALMIC (EYE) DAILY 09/03/17 11/11/17 fluticasone 2 spray INTRANASAL DAILY 09/03/17 11/11/17 fluticasone-vilanterol [Breo 1 inh INHALATION DAILY 09/03/17 11/11/17 Ellipta] hydrocodone-acetaminophen 1 tab PO Q4-6H PRN 09/03/17 11/11/17 ipratropium-albuterol 3 ml INHALATION QID 09/03/17 11/11/17 levothyroxine 50 mcg PO DAILY 09/03/17 11/11/17 tizanidine 2 mg PO BID PRN 09/03/17 11/11/17 vitamin X51-ocljn acid 1 tab PO DAILY 09/03/17 11/11/17 brinzolamide-brimonidine 1 drp OPHTHALMIC (EYE) TID 11/11/17 11/11/17 [Simbrinza] gabapentin 300 mg PO DAILY 11/11/17 11/11/17 morphine 15 mg PO Q12H 11/11/17 11/11/17 Previous Rx's Medication Instructions Recorded prednisone 40 mg PO DAILY #12 tab 09/08/17 Allergies Allergy/AdvReac Type Severity Reaction Status Date / Time levofloxacin [From Levaquin] AdvReac Swelling Verified 11/11/17 15:29 ADALAT Allergy Severe RACES HEART Uncoded 11/11/17 15:29 Review of Systems ROS: all other [facility] Social History Social History Substance History: No History of Abuse Second Hand Smoke Exposure: No Smoking Status: Former smoker How Often Do You Have a Drink Containing Alcohol: Never Recent Travel in [facility] within the Last 8 Weeks: No Recent Out of Country Travel within the Last 8 Weeks: No Immunization History Tetanus Immunization: Unsure Exam Narrative Exam Narrative: GENERAL: Well-nourished, well-developed patient in respiratory distress. SKIN: Focused skin assessment reveals no rash and nodules. Skin is Warm and dry. Skin is very thin. There are ecchymosis is on the extremities HEAD: Atraumatic. Normocephalic. EYES: Pupils equal and round. No scleral icterus. No injection or drainage. ENT: No nasal bleeding or discharge. Mucous membranes pink and moist. NECK: Trachea midline. No JVD. CARDIOVASCULAR: Regular rate and rhythm. No murmur appreciated. Tachycardic at 120 RESPIRATORY: Positive accessory muscle use. Sparse left-sided basilar crackles and more prominent right-sided basilar crackles. Respiratory effort is very labored GASTROINTESTINAL: Abdomen soft, non-tender, nondistended. Hepatic and splenic margins not palpable. MUSCULOSKELETAL: No obvious deformities. No clubbing. No cyanosis. Has some edema of the feet and ankles NEUROLOGICAL: Awake and alert. No obvious cranial nerve deficits. Motor grossly within normal limits. Normal speech. PSYCHIATRIC: Anxious mood and affect; insight and judgment normal. Course Initial Documented Vital Signs Temperature 99.0 F 11/11/17 15:24 Pulse Rate 114 H 11/11/17 15:24 Respiratory Rate 32 H 11/11/17 15:24 Blood Pressure 115/69 11/11/17 15:24 Pulse Oximetry 86 L 11/11/17 15:24 Last Documented Vital Signs Temperature 99.0 F 11/11/17 15:24 Pulse Rate 114 H 11/11/17 16:29 Respiratory Rate 28 H 11/11/17 16:29 Blood Pressure 124/66 11/11/17 16:29 Pulse Oximetry 95 11/11/17 16:29 Critical Care Time Critical Care Time: Yes Total Critical Care Time: 78 Attestation: Aggregate critical care time was 78 minutes. Time to perform other separately billable procedures was not included in the critical care time. My time did not include minutes spent treating any other patients simultaneously or on activities that did not directly contribute to the patient's treatment. The services I provided to this patient were to treat and/or prevent clinically significant deterioration that could result in: Cardiopulmonary arrest, respiratory collapse, loss of airway I provided critical care services requiring my management, as noted below: Chart data review, documentation time, medication orders and management, vital sign assessments/reviewing monitor data, ordering and reviewing lab tests, ordering and interpreting/reviewing x-rays and diagnostic studies, care of the patient and discussion of the patient with the admitting physicians. Medical Decision Making MDM Narrative Medical decision making narrative: This is a 72-year-old DNR hospice end-stage COPD/interstitial lung disease patient in profound respiratory distress. I mainly placed her on BiPAP therapy and gave her a series of 3 nebulizer treatments. I have ordered x-ray and labs and EKG. Had a discussion with patient and her power of staff attorney for healthcare who is at bedside. I asked them to confirm DNR status and hospice status. They both seem indecisive and now at the point of crisis do not know what to do. I am doing what I can for her short of intubating her while they decide if that is what they want or not. I have stressed the urgency of the situation but they continue to debate. I reviewed the workup. I am concerned about some degree of pulmonary edema after looking at the chest x-ray. She also has pitting edema the feet. I have given her IV Lasix and replacing a Ryan catheter. She is improved on the BiPAP and I do not think I need to intubate her at this point even if she is full code. Obtaining an ABG. It is now 2 hours into her stay and she still cannot decide if she wants to be DNR or not or even if she wants to be hospice or not so I am going to treat her aggressively until she figures that out. I reviewed with torque tester who will admit to intensive care Medical Screen Exam Complete: Yes Emergency Medical Condition: Yes Differential Diagnosis Differential Diagnosis: Differential diagnosis includes COPD, asthma, pneumonia , bronchitis, PE. Medical Records Medical records reviewed: Yes I reviewed the patient's medical records. Lab Data Lab results reviewed: Yes I reviewed the patient's lab results. Lab results narrative: CBC normal, renal function normal Result diagrams: 11/11/17 15:50 11/11/17 15:50 Lab Results 11/11/17 11/11/17 11/11/17 Range/Units 15:50 15:50 17:10 WBC 6.8 (4.0-11.0) th/mm3 RBC 3.76 L (4.00-5.30) mil/mm3 Hgb 12.7 (11.6-15.3) gm/dL Hct 37.4 (35.0-46.0) % MCV 99.4 (80.0-100.0) fL MCH 33.7 (27.0-34.0) pg MCHC 33.9 (32.0-36.0) % RDW 15.8 (11.6-17.2) % Plt Count 168 (150-450) th/mm3 MPV 7.1 (7.0-11.0) fL Prelim Diff (Auto) Slide review pending Neut % (Auto) 74.5 H (16.0-70.0) % Lymph % (Auto) 14.7 (9.0-44.0) % Holmes % (Auto) 5.6 (0.0-8.0) % Eos % (Auto) 4.2 H (0.0-4.0) % Baso % (Auto) 1.0 (0.0-2.0) % Neut # (Auto) 5.1 (1.8-7.7) th/mm3 Lymph # (Auto) 1.0 (1.0-4.8) th/mm3 Holmes # (Auto) 0.4 (0.0-0.9) th/mm3 Eos # (Auto) 0.3 (0.0-0.4) th/mm3 Baso # (Auto) 0.1 (0.0-0.2) th/mm3 WBC Differential . Diff Scan Auto diff confirmed Differential Comment . Platelet Estimate Low L (Normal) Platelet Morphology Normal (Normal) Puncture Site Left radial Patient Temperature 98.6 O2 Saturation 94 (90-100) % ABG pH 7.49 H (7.380-7.420) ABG pCO2 30 L (38-42) mmHg ABG pO2 80 (61-120) mmHg ABG HCO3 22 (22-26) mmol/L ABG O2 Content 17.6 (12.0-20.0) Vol % ABG Base Excess -0.5 (-2-2) mmol/L ABG Methemoglobin 0.5 (0-2) % Sidney Test Y Hemoglobin 13.3 (12.0-16.0) G/DL Carboxyhemoglobin 1.9 (0-4) % O2 Delivery Device Bipap Vent Setting Ipap 15 epap 5 Inspired O2 50 % Critical Value No Sodium 133 L (136-145) meq/L Potassium 4.2 (3.5-5.1) meq/L Chloride 96 L (98-107) meq/L Carbon Dioxide 26.4 (21.0-32.0) meq/L Anion Gap 11 (5-15) meq/L BUN 15 (7-18) mg/dL Creatinine 0.64 (0.50-1.00) mg/dL Estimated GFR Greater than 89 (>89) mL/min Random Glucose 102 (74-106) mg/dL Calcium 8.0 L (8.5-10.1) mg/dL Total Bilirubin 0.4 (0.2-1.0) mg/dL AST 50 H (15-37) U/L ALT 28 (10-53) U/L Alkaline Phosphatase 78 (45-117) U/L Total Protein 6.2 L (6.4-8.2) g/dL Albumin 3.2 L (3.4-5.0) g/dL Imaging Data Attestation: I personally reviewed and interpreted this imaging study as follows : My impression: Diffuse bilateral airspace disease, possibly interstitial lung disease and could be some degree of pulmonary edema as well. Radiologist's impression: Chest X-Ray 11/11/17 15:35 CONCLUSION: Diffuse increased interstitial markings bilaterally with some airspace disease suggestive of pulmonary edema versus pneumonia. ECG Data EKG Prior to Arrival: No Attestation: I personally reviewed and interpreted this ECG as follows: Prior ECG tracings: not available for review Interpretation: EKG shows sinus tachycardia at 116. MN interval and axis are normal. There are no ST elevations. Discharge Plan Discharge Disposition Patient Disposition: 30 Still Patient Discharge Details Diagnosis: Acute and chronic respiratory failure Physicians Team ED Provider: Abraham Eugene Primary Care Provider: Tono Delgado Rxs /Orders / Referrals /Forms Prescriptions: No Action ipratropium-albuterol 0.5 mg-3 mg(2.5 mg base)/3 mL Solution For Nebulization 3 ml INHALATION QID RF: 0 tizanidine 2 mg Tablet 2 mg PO BID PRN (Reason: Spasms) RF: 0 citalopram 40 mg Tablet 40 mg PO DAILY RF: 0 hydrocodone-acetaminophen 5-325 mg Tablet 1 tab PO Q4-6H PRN (Reason: Anxiety) RF: 0 ascorbic acid (vitamin C) [Vitamin C] 1,000 mg Tablet Extended Release 1,000 mg PO Q12H RF: 0 alprazolam 0.5 mg Tablet 0.5 mg PO DAILY PRN (Reason: Anxiety) RF: 0 calcium carbonate [Calcium 600] 600 mg calcium (1,500 mg) Tablet 600 mg PO BID RF: 0 levothyroxine 50 mcg Tablet 50 mcg PO DAILY RF: 0 albuterol sulfate [ProAir HFA] 90 mcg/actuation Hfa Aerosol Inhaler 2 puff INHALATION Q4H PRN (Reason: Shortness Of Breath) RF: 0 celecoxib [Celebrex] 100 mg Capsule 100 mg PO BID RF: 0 fluticasone 50 mcg/actuation [place],Suspension 2 spray INTRANASAL DAILY RF: 0 difluprednate [Durezol] 0.05 % Drops 1 drp OPHTHALMIC (EYE) DAILY RF: 0 vitamin H02-dtdmz acid 500-400 mcg Tablet 1 tab PO DAILY RF: 0 fluticasone-vilanterol [Breo Ellipta] 100-25 mcg/dose Blister With Device 1 inh INHALATION DAILY RF: 0 artificial tear(jfabl-fua-tok) 0.1-0.3-0.2 % Drops 1 drp OPHTHALMIC (EYE) Q2-4H PRN (Reason: Dry Eyes) RF: 0 prednisone 20 mg Tablet 40 mg PO DAILY Qty: 12 RF: 0 gabapentin 300 mg Capsule 300 mg PO DAILY RF: 0 morphine 15 mg Tablet Extended Release 15 mg PO Q12H RF: 0 brinzolamide-brimonidine [Simbrinza] 1-0.2 % Drops,Suspension 1 drp OPHTHALMIC (EYE) TID RF: 0 Discharge Interventions Interventions: Vital Signs Last Done: 11/11/17 16:29 Status ED Status: Admitted Patient
[2017-11-11 16:07] LABS: Baso # (Auto) 0.1 th/mm3 (0.0-0.2); Eos # (Auto) 0.3 th/mm3 (0.0-0.4); Eos % (Auto) 4.2 % (0.0-4.0); Hematocrit 37.4 % (35.0-46.0); Hemoglobin 12.7 gm/dL (11.6-15.3); Lymph % (Auto) 14.7 % (9.0-44.0); Mean Corpuscular HGB Conc 33.9 % (32.0-36.0); Mean Corpuscular Hemoglobin 33.7 pg (27.0-34.0); Mean Corpuscular Volume 99.4 fL (80.0-100.0); Mean Platelet Volume 7.1 fL (7.0-11.0); Mono # (Auto) 0.4 th/mm3 (0.0-0.9); Mono % (Auto) 5.6 % (0.0-8.0); Neut # (Auto) 5.1 th/mm3 (1.8-7.7); Neut % (Auto) 74.5 % (16.0-70.0); Platelet Count 168 th/mm3 (150-450); Red Blood Count 3.76 mil/mm3 (4.00-5.30); Red Cell Distribution Width 15.8 % (11.6-17.2); White Blood Count 6.8 th/mm3 (4.0-11.0)
--- NOTE | 2017-11-11 16:07 | XR ---
EXAM DATE: 11/11/2017 3:35 PM EDT AGE/SEX: 72 years / Female INDICATIONS: Shortness of breath. CLINICAL DATA: This is the patient's initial encounter. Patient reports that signs and symptoms have been present for 2 days and indicates a pain score of 0/10. MEDICAL/SURGICAL HISTORY: . End stage chronic obstructive pulmonary disease. Asthma. Chronic br onchitis. Interstitial lung disease. None. COMPARISON: [facility] [place] 2V AP&LAT, 09/06/2017. . FINDINGS: There is increased interstitial markings bilaterally with airspace disease suggestive of pulmonary ed aryan versus pneumonia. This needs to be correlated with patient's clinical exam. The heart size is sta ble. No significant pleural effusions are demonstrated. The bony structures are stable. There is no p neumothorax. CONCLUSION: Diffuse increased interstitial markings bilaterally with some airspace disease suggestive of pulmonar y edema versus pneumonia. Electronically signed by: Riley Mckinley MD 11/11/2017 4:05 PM EDT
[2017-11-11 16:26] LABS: Alkaline Phosphatase 78 U/L (45-117); Total Protein 6.2 g/dL (6.4-8.2)
[2017-11-11 16:27] LABS: Alanine Aminotransferase 28 U/L (10-53); Albumin 3.2 g/dL (3.4-5.0); Anion Gap 11 meq/L (5-15); Aspartate Aminotransferase 50 U/L (15-37); Blood Urea Nitrogen 15 mg/dL (7-18); Carbon Dioxide 26.4 meq/L (21.0-32.0); Chloride 96 meq/L (98-107); Glomerular Filtration Rate Greater Than 89 mL/min (>89); Glucose,Random 102 mg/dL (74-106); Potassium 4.2 meq/L (3.5-5.1); Sodium 133 meq/L (136-145)
[2017-11-11 16:45] LABS: Platelet Morphology Normal (Normal)
[2017-11-11 17:25] LABS: ABG Base Excess -0.5 mmol/L (-2-2); ABG PCO2 30 mmHg (38-42); ABG PO2 80 mmHg (61-120)
[2017-11-11] MEDS ORDERED: Morphine Sulfate Inj 2 MG/ML Vial IV.PUSH PRN (18:00)
--- NOTE | 2017-11-11 19:06 | P.HPCC ---
History of Present Illness Primary Care Physician: Tono Delgado DO History of Present Illness: 72-year-old female with end-stage COPD and interstitial lung disease was brought in by paramedics in profound respiratory distress. At home she wears 4 L of nasal cannula but with any activity she puts it up anywhere from 8-10 L. Paramedics gave her nebulizer route and IV steroids. She denies chest pain or productive cough or fever. Paramedics report that she is a DNR patient and has enrolled in [facility] hospice. No further history is obtainable due to patient respiratory distress and facemask BiPAP. Inpatient Certification: I certify that the inpatient services were ordered in accordance with Medicare regulations governing the order. This includes certification that hospital inpatient services are reasonable and necessary and in the case of services not specified as inpatient-only under 42 CFR 419.22(n), that they are appropriately provided as inpatient services in accordance to with the 2-midnight benchmark under 43 CFR 412.3(e) Estimated Total Length of Stay (Days): 5 Plans for Post Hospital Care: Not yet determined Review of Systems unobtainable due to mental status PMFSH - History History Provided By: Patient, Manager Intensive Care Unit / EMT - Medical History Medical History: Medical History (Last Reviewed 11/11/17 @ 15:26 by Angela Pugh) Fracture of left wrist Fracture, fibula Fracture, ribs Fractured sternum H/O: hysterectomy History of ectopic History of fractured rib COPD (chronic obstructive pulmonary disease) - Surgical History Surgical History: Surgical History (Last Reviewed 11/11/17 @ 15:26 by Angela Pugh) History of eye surgery History of thoracotomy History of tonsillectomy Hx of partial adrenalectomy - Tobacco History Second Hand Smoke Exposure: No Smoking Status: Former smoker - Alcohol History How Often Do You Have a Drink Containing Alcohol: Never - Substance Use History Substance History: No History of Abuse - Travel History Recent Travel in the [place] Within the Last 8 Weeks: No Recent Travel Out of the Country Within the Last 8 Weeks: No - Immunization History Tetanus Immunization: Unsure Medications and Allergies Active Medications: Active Medications Current Medications Hydrocodone Bitart/Acetaminophen (Veteran 5/325) 1 tab PO Q4H PRN PRN Reason: PAIN 1-10 Albuterol (Duoneb Neb (Prn)) 1 ampul NEB Q4HR NEB PRN PRN Reason: SHORTNESS OF BREATH Albuterol (Duoneb Neb ([facility])) 1 ampul NEB Q4HR NEB [facility] Last Admin: 11/12/17 00:22 Dose: 1 ampul Alprazolam (Xanax) 0.5 mg PO DAILY PRN PRN Reason: Anxiety Artificial Tears (Refresh Tears 0.5% Opth Drops) 1 drop EACH EYE Q2H PRN PRN Reason: DRY EYES Ascorbic Acid (Vitamin C) 1,000 mg PO BID [facility] Last Admin: 11/11/17 22:51 Dose: Not Given Calcium Carbonate (Oscal) 500 mg PO BID [facility] Last Admin: 11/11/17 22:51 Dose: Not Given Celecoxib (Celebrex) 100 mg PO BID [facility] Last Admin: 11/11/17 22:52 Dose: Not Given Chlorhexidine Gluconate (Chlorhexidine 2% Cloth) 3 pack TOPICAL DAILY@0400 GENIA Stop: 11/17/17 03:59 Chlorhexidine Gluconate (Chlorhexidine 2% Cloth) 3 pack TOPICAL DAILY@0400 PRN PRN Reason: Extra cloth needed Stop: 11/17/17 03:59 Citalopram Hydrobromide (Celexa) 40 mg PO DAILY [facility] Enoxaparin Sodium (Lovenox Inj) 40 mg SQ Q24H [facility] Last Admin: 11/11/17 19:12 Dose: 40 mg Famotidine (Pepcid Pf Inj) 20 mg IV.PUSH Q12HR [facility] Last Admin: 11/11/17 22:51 Dose: 20 mg Fluticasone Propionate (Flonase Nasal Grace) 2 spray EACH NARE DAILY [facility] Furosemide (Lasix Inj) 40 mg IV.PUSH BID@0900,1800 [facility] Last Admin: 11/11/17 19:03 Dose: Not Given Gabapentin (Neurontin) 300 mg PO DAILY [facility] Cefepime HCl 2,000 mg/ Sodium (Chloride) 100 mls @ 200 mls/hr IV.SIG Q12H [facility] Last Infusion: 11/11/17 19:43 Dose: Infused Levothyroxine Sodium (Synthroid) 50 mcg PO DAILY@0600 [facility] Methylprednisolone Sodium Succinate (Solumedrol Inj) 80 mg IV.PUSH Q6HR [facility] Last Admin: 11/12/17 00:19 Dose: 80 mg Morphine Sulfate (Morphine Inj) 2 mg IV.PUSH Q2H PRN PRN Reason: PAIN 6-10 Morphine Sulfate (Oramorph Sr) 15 mg PO Q12H [facility] Last Admin: 11/11/17 22:51 Dose: Not Given Pt Own ( Difluprednate [ Durezol] 1 Drp) Opth Solu 1 each EACH EYE DAILY [facility] Pt Own (Brinzolamide -Brimonidine [ Simbrinza] 1 each EACH EYE TID [facility] Tizanidine HCl (Zanaflex) 2 mg PO BID PRN PRN Reason: MUSCLE SPAMPS Vitamin B Complex/Vitamin C (Allbee C) 1 tab PO DAILY [facility] Allergies Allergy/AdvReac Type Severity Reaction Status Date / Time levofloxacin [From Levaquin] AdvReac Swelling Verified 11/11/17 15:29 ADALAT Allergy Severe RACES HEART Uncoded 11/11/17 15:29 Home Medications Medication Instructions Recorded Confirmed Type albuterol sulfate [ProAir HFA] 2 puff INHALATION Q4H PRN 09/03/17 11/11/17 History alprazolam 0.5 mg PO DAILY PRN 09/03/17 11/11/17 History artificial tear(ydmsr-edd-vvr) 1 drp OPHTHALMIC (EYE) Q2-4H PRN 09/03/17 History ascorbic acid (vitamin C) [Vitamin 1,000 mg PO Q12H 09/03/17 11/11/17 History C] calcium carbonate [Calcium 600] 600 mg PO BID 09/03/17 11/11/17 History celecoxib [Celebrex] 100 mg PO BID 09/03/17 11/11/17 History citalopram 40 mg PO DAILY 09/03/17 11/11/17 History difluprednate [Durezol] 1 drp OPHTHALMIC (EYE) DAILY 09/03/17 11/11/17 History fluticasone 2 spray INTRANASAL DAILY 09/03/17 11/11/17 History fluticasone-vilanterol [Breo 1 inh INHALATION DAILY 09/03/17 11/11/17 History Ellipta] hydrocodone-acetaminophen 1 tab PO Q4-6H PRN 09/03/17 11/11/17 History ipratropium-albuterol 3 ml INHALATION QID 09/03/17 11/11/17 History levothyroxine 50 mcg PO DAILY 09/03/17 11/11/17 History tizanidine 2 mg PO BID PRN 09/03/17 11/11/17 History vitamin R51-wkgul acid 1 tab PO DAILY 09/03/17 11/11/17 History brinzolamide-brimonidine 1 drp OPHTHALMIC (EYE) TID 11/11/17 11/11/17 History [Simbrinza] gabapentin 300 mg PO DAILY 11/11/17 11/11/17 History morphine 15 mg PO Q12H 11/11/17 11/11/17 History Results - Labs CBC & Chem 7: 11/11/17 15:50 11/11/17 15:50 Labs: Short CBC 11/11/17 Range/Units 15:50 WBC 6.8 (4.0-11.0) th/mm3 Hgb 12.7 (11.6-15.3) gm/dL Hct 37.4 (35.0-46.0) % Plt Count 168 (150-450) th/mm3 BMP 11/11/17 15:50 Sodium 133 L Potassium 4.2 Chloride 96 L Carbon Dioxide 26.4 BUN 15 Creatinine 0.64 Calcium 8.0 L Liver Function 11/11/17 Range/Units 15:50 Total Bilirubin 0.4 (0.2-1.0) mg/dL AST 50 H (15-37) U/L ALT 28 (10-53) U/L Alkaline Phosphatase 78 (45-117) U/L Albumin 3.2 L (3.4-5.0) g/dL - Imaging Impressions Chest X-Ray 11/11/17 15:35 CONCLUSION: Diffuse increased interstitial markings bilaterally with some airspace disease suggestive of pulmonary edema versus pneumonia. Exam Vital signs: Vital Signs 11/11/17 15:24 11/11/17 15:29 11/11/17 15:39 Temperature 99.0 F Pulse Rate 114 H 120 H Respiratory Rate 32 H 30 H Blood Pressure 115/69 Pulse Oximetry 86 L 89 L 95 11/11/17 15:47 11/11/17 15:48 11/11/17 15:49 Temperature Pulse Rate 114 H 114 H Respiratory Rate 26 H 26 H Blood Pressure Pulse Oximetry 94 L 11/11/17 16:29 11/11/17 17:00 Temperature Pulse Rate 114 H 116 H Respiratory Rate 28 H 26 H Blood Pressure 124/66 124/68 Pulse Oximetry 95 95 Intake & Output 11/11/17 11/11/17 11/12/17 06:59 18:59 06:59 Output Total 1399 / 1399 Balance -1399 / -1400 Weight 54.431 kg Output: Urine Amount (Catheter) 1399 / 1399 Indwelling Urethral Catheter 1399 - Constitutional moderate distress - Routine HEENT Exam Head: Present: normocephalic, atraumatic - Routine Neck Exam Present: supple. Absent: JVD, carotid bruit - Routine Respiratory Exam Present: accessory muscle use, rales, rhonchi. Absent: stridor, wheezes - Routine Cardiovascular Exam Present: RRR, S1, S2 - Routine Abdominal Exam Present: soft, normoactive bowel sounds. Absent: tenderness, distended, rebound - Routine Extremities Exam Present: full ROM. Absent: cyanosis, clubbing, edema - Routine Skin Exam Present: intact. Absent: cyanosis, erythema - Routine Neurological Exam Present: moving all extremities Septic Shock Reassessment Septic shock perfusion: reassessment completed Caprini VTE Risk Assessment Caprini VTE Risk Assessment: Moderate/High Risk (score >= 2) Caprini Risk Assessment Model: Point Value = 1 Point Value = 2 Point Value = 3 Point Value = 5 Age 41-60 Minor surgery BMI > 25 kg/m2 Swollen legs Varicose veins or History of unexplained or recurrent spontaneous Oral contraceptives or hormone replacement Sepsis (< 1 month) Serious lung disease, including pneumonia (< 1 month) Abnormal pulmonary function Acute myocardial infarction Congestive heart failure (< 1 month) History of inflammatory bowel disease Medical patient at bed rest Age 61-74 Arthroscopic surgery Major open surgery (> 45 min) Laparoscopic surgery (> 45 min) Malignancy Confined to bed (> 72 hours) Immobilizing plaster cast Central venous access Age >= 75 History of VTE Family history of VTE Factor V Leiden Prothrombin [id number] Lupus anticoagulant Anticardiolipin antibodies Elevated serum homocysteine Heparin-induced thrombocytopenia Other congenital or acquired thrombophilia Stroke (< 1 month) Elective arthroplasty Hip, pelvis, or leg fracture Acute spinal cord injury (< 1 month) Prophylaxis Regimen: Total Risk Factor Score Risk Level Prophylaxis Regimen 0-1 Low Early ambulation 2 Moderate Order ONE of the following: *Sequential Compression Device (SCD) *Heparin 5000 units SQ BID 3-4 Higher Order ONE of the following medications: *Heparin 5000 units SQ TID *Enoxaparin/Lovenox 40 mg SQ daily (WT < 150 kg, CrCl > 30 mL/min) *Enoxaparin/Lovenox 30 mg SQ daily (WT < 150 kg, CrCl > 10-29 mL/min) *Enoxaparin/Lovenox 30 mg SQ BID (WT < 150 kg, CrCl > 30 mL/min) AND/OR *Sequential Compression Device (SCD) 5 or more Highest Order ONE of the following medications: *Heparin 5000 units SQ TID (Preferred with Epidurals) *Enoxaparin/Lovenox 40 mg SQ daily (WT < 150 kg, CrCl > 30 mL/min) *Enoxaparin/Lovenox 30 mg SQ daily (WT < 150 kg, CrCl > 10-29 mL/min) *Enoxaparin/Lovenox 30 mg SQ BID (WT < 150 kg, CrCl > 30 mL/min) AND *Sequential Compression Device (SCD) Assessment and Plan - Assessment and Plan Plan: Respiratory failure -COPD exacerbation -End-stage lung disease -Pulmonary consultation Dr. Shin is following -IV steroids -Empiric antibiotic -DuoNeb scheduled and as needed -Questionable pulmonary edema on the CXR, will gently diurese Anxiety -Alprazolam Depression -Citalopram Hypothyroidism -Levothyroxine DVT GI prophylaxis -Teds SCDs -Subcu Lovenox -Pepcid 35 minutes of critical care
[2017-11-11] MEDS: Enoxaparin Inj 40 MG/0.4 ML Syringe SQ SCH (19:12)
[2017-11-11] MEDS ORDERED: ALPRAZolam 0.5 MG Tablet PO PRN (19:38)
[2017-11-11] MEDS ORDERED: Carboxymethylcellulose 0.5% Opth Drops 15 ML Bottle EACH EYE PRN (20:00)
[2017-11-11] MEDS ORDERED: MethylPREDNISolone Sod Succinate Inj 125 MG/2 ML Vial IV.PUSH SCH (22:00)
[2017-11-11] MEDS: Calcium Carbonate 500 MG Tablet PO SCH (22:51)
[2017-11-11] MEDS: Morphine Sulfate 15 MG SR Tablet PO SCH (22:51)
[2017-11-11] MEDS: Ascorbic Acid 500 MG Tablet PO SCH (22:51)
[2017-11-11] MEDS: Famotidine PF Inj 20 MG/2 ML Vial IV.PUSH SCH (22:51)
[2017-11-11] MEDS: Celecoxib 100 MG Capsule PO SCH (22:52)
[2017-11-12] MEDS: MethylPREDNISolone Sod Succinate Inj 125 MG/2 ML Vial IV.PUSH SCH ×5 (00:19→23:25)
[2017-11-12] MEDS ORDERED: Chlorhexidine Gluconate 2% 1 Pack (2 Cloths) TOPICAL PRN (04:00)
[2017-11-12 05:00] LABS: Baso % (Auto) 0.3 % (0.0-2.0); Eos % (Auto) 0.1 % (0.0-4.0); Hematocrit 38.4 % (35.0-46.0); Hemoglobin 13.1 gm/dL (11.6-15.3); Lymph # (Auto) 0.4 th/mm3 (1.0-4.8); Lymph % (Auto) 6.4 % (9.0-44.0); Mean Corpuscular HGB Conc 34.2 % (32.0-36.0); Mean Corpuscular Hemoglobin 33.4 pg (27.0-34.0); Mean Corpuscular Volume 97.7 fL (80.0-100.0); Mean Platelet Volume 7.4 fL (7.0-11.0); Mono # (Auto) 0.1 th/mm3 (0.0-0.9); Mono % (Auto) 1.6 % (0.0-8.0); Neut % (Auto) 91.6 % (16.0-70.0); Platelet Count 168 th/mm3 (150-450); Red Blood Count 3.94 mil/mm3 (4.00-5.30); Red Cell Distribution Width 16.1 % (11.6-17.2); White Blood Count 5.5 th/mm3 (4.0-11.0)
[2017-11-12 05:25] LABS: Alanine Aminotransferase 26 U/L (10-53); Albumin 3.2 g/dL (3.4-5.0); Alkaline Phosphatase 82 U/L (45-117); Anion Gap 6 meq/L (5-15); Aspartate Aminotransferase 41 U/L (15-37); Blood Urea Nitrogen 13 mg/dL (7-18); Carbon Dioxide 28.9 meq/L (21.0-32.0); Chloride 100 meq/L (98-107); Glomerular Filtration Rate Greater Than 89 mL/min (>89); Glucose,Random 183 mg/dL (74-106); Sodium 135 meq/L (136-145); Total Protein 6.7 g/dL (6.4-8.2)
--- NOTE | 2017-11-12 05:41 | XR ---
EXAM DATE: 11/12/2017 6:00 AM EDT AGE/SEX: 72 years / Female INDICATIONS: Shortness of breath, possible pulmonary disease. CLINICAL DATA: This is the patient's subsequent encounter. Patient reports that signs and symptoms h ave been present for 3 days and indicates a pain score of 0/10. MEDICAL/SURGICAL HISTORY: Chronic obstructive pulmonary disease. Asthma. Chronic bronchitis N one. COMPARISON: [facility] – [place], CHEST 1V SINGLE AP, 11/11/2017. . FINDINGS: There is persistent diffuse bilateral interstitial and alveolar parenchymal opacity. Cardiac contours are grossly unchanged. CONCLUSION: No significant change Electronically signed by: Guzman Walsh MD 11/12/2017 5:40 AM EDT
[2017-11-12 05:43] LABS: Lymphocytes 3 % (9-44); Monocytes 1 % (0-8); Myelocytes 2 % (0-0); Spherocytes 1+; Tallied Nucleated RBC 1 (0-0)
[2017-11-12 05:44] LABS: Ovalocytes 1+
[2017-11-12 05:45] LABS: Platelet Estimate Normal (Normal); Platelet Morphology Normal (Normal)
[2017-11-12] MEDS: Chlorhexidine Gluconate 2% 1 Pack (2 Cloths) TOPICAL SCH (06:54)
[2017-11-12] MEDS: Levothyroxine 50 MCG Tablet PO SCH (06:56)
[2017-11-12] MEDS ORDERED: BRINZOLAMIDE BRIMONIDINE EACH EYE SCH (09:00)
[2017-11-12] MEDS ORDERED: DIFLUPREDNATE EACH EYE SCH (09:00)
--- NOTE | 2017-11-12 09:31 | P.PNCC ---
Subjective Subjective Remarks/Hospital Course: 72-year-old female with end-stage COPD and interstitial lung disease was brought in by paramedics in profound respiratory distress. At home she wears 4 L of nasal cannula but with any activity she puts it up anywhere from 8-10 L. Paramedics gave her nebulizer route and IV steroids. She denies chest pain or productive cough or fever. Paramedics report that she is a DNR patient and has enrolled in [facility] hospice. No further history is obtainable due to patient respiratory distress and facemask BiPAP. SUBJ 11/12: Remains on BiPAP quite tachypneic, receiving IV steroids breathing treatments antibiotics and Lasix. Chest x-ray shows bilateral significant interstitial infiltrates. I have discussed her case with Dr. Shin director radiation oncology yesterday. He has reported previous response to high-dose IV steroids. Continue Solu-Medrol 80 mg every 6 hours Objective Vital Signs / I&O: Vital Signs 11/11/17 15:24 11/11/17 15:29 11/11/17 15:39 Temperature 99.0 F Pulse Rate 114 H 120 H Respiratory Rate 32 H 30 H Blood Pressure 115/69 Pulse Oximetry 86 L 89 L 95 11/11/17 15:47 11/11/17 15:48 11/11/17 15:49 Temperature Pulse Rate 114 H 114 H Respiratory Rate 26 H 26 H Blood Pressure Pulse Oximetry 94 L 11/11/17 16:29 11/11/17 17:00 11/11/17 18:00 Temperature Pulse Rate 114 H 116 H 118 H Respiratory Rate 28 H 26 H 26 H Blood Pressure 124/66 124/68 115/61 Pulse Oximetry 95 95 95 11/11/17 19:00 11/11/17 19:20 11/11/17 19:23 Temperature Pulse Rate 116 H 118 H Respiratory Rate 26 H 34 H Blood Pressure 101/59 L Pulse Oximetry 96 96 11/11/17 21:00 11/11/17 21:06 11/11/17 21:09 Temperature 98.3 F Pulse Rate 98 H 114 H 113 H Respiratory Rate 47 H 33 H Blood Pressure 129/71 Pulse Oximetry 98 94 L 11/11/17 22:00 11/11/17 23:00 11/12/17 00:00 Temperature 97.6 F Pulse Rate 98 H 88 84 Respiratory Rate 23 30 H 26 H Blood Pressure 107/62 109/65 113/60 Pulse Oximetry 98 97 96 11/12/17 00:21 11/12/17 00:23 11/12/17 01:00 Temperature Pulse Rate 80 87 Respiratory Rate 36 H 28 H Blood Pressure 105/67 Pulse Oximetry 97 96 11/12/17 02:00 11/12/17 04:03 11/12/17 04:06 Temperature Pulse Rate 83 81 Respiratory Rate 39 H 37 H Blood Pressure 115/78 Pulse Oximetry 95 97 11/12/17 08:14 Temperature Pulse Rate 89 Respiratory Rate 24 Blood Pressure Pulse Oximetry 93 L Intake & Output 11/11/17 11/12/17 11/12/17 18:59 06:59 18:59 Intake Total 100 / 100 100 / 100 Output Total 1949 Balance -1850 / -1850 100 / 100 Weight 54.431 kg 60 kg Intake: IV 100 / 100 100 / 100 Maxipime Inj 2,000 MG In NS Inj 100 / 100 100 / 100 100 ML @ 200 mls/hr IV.SIG Q12H [facility] Rx#:[id number] Output: Urine Amount (Catheter) 1949 Indwelling Urethral Catheter 1949 Other: Date of Last Bowel Movement 11/12/17 # Bowel Movements 1 Weight On Admission 58 kg Result Diagrams: 11/12/17 03:47 11/12/17 03:47 Objective Remarks: - Constitutional moderate distress, on BiPAP tachypneic - Routine HEENT Exam Head: normocephalic, atraumatic - Routine Neck Exam supple. Absent: JVD, carotid bruit - Routine Respiratory Exam Positive accessory muscle use, bilateral rales, rhonchi. No stridor, wheezes - Routine Cardiovascular Exam RRR, S1, S2 - Routine Abdominal Exam soft, normoactive bowel sounds. No tenderness, distended, rebound - Routine Extremities Exam No cyanosis, clubbing, edema - Routine Skin Exam No erythema - Routine Neurological Exam Moving all extremities. Follows commands no focal deficits Assessment and Plan - Assessment and Plan Plan: Neuro: Chronic pain Anxiety/depression -Use morphine for pain and anxiety, continue Xanax -Continue citalopram Resp: Acute hypoxemic respiratory failure Interstitial lung disease Acute COPD exacerbation End-stage lung disease -Pulmonary consultation Dr. Shin is following -IV steroids Solu-Medrol 80 mg IV every 8 hours -Empiric antibiotic with cefepime -DuoNeb every 4 hours scheduled and as needed -Possible pulmonary edema on the CXR, will gently diurese -Interstitial changes are most likely secondary to ILD CV: -Pulmonary infiltrates most likely secondary to interstitial lung disease -Continue IV diuretics to attempt to improve oxygenation GI: -N.p.o., IV Protonix : -Strict intake output with IV Lasix ID: -Continue empiric cefepime follow-up on cultures Endo: Hypothyroidism -Levothyroxine DVT GI prophylaxis -Teds SCDs -Subcu Lovenox -Pepcid 35 minutes of critical care
--- NOTE | 2017-11-12 10:01 | ECG ---
Date Performed: 11/11/2017 Time Performed: 15:33:11 PTAGE: 72 years EKG: SINUS TACHYCARDIA WITH OCCASIONAL SUPRAVENTRICULAR PREMATURE COMPLEXES LOW QRS VOLTAGE IN P RECORDIAL LEADS POSSIBLE RIGHT VENTRICULAR CONDUCTION DELAY ABNORMAL RHYTHM ECG INTERPRETATION BASED ON A DEFAULT AGE OF 41 YEARS NO PREVIOUS TRACING DOCTOR: Isiah Grider Interpretating Date/Time 11/12/2017 10:00:27
[2017-11-12] MEDS: Celecoxib 100 MG Capsule PO SCH ×2 (10:19→22:00)
[2017-11-12] MEDS: Vitamin B Complex/Vitamin C Tablet PO SCH (10:19)
[2017-11-12] MEDS: Morphine Sulfate 15 MG SR Tablet PO SCH ×2 (10:23→22:01)
[2017-11-12] MEDS: Gabapentin 300 MG Capsule PO SCH (10:23)
[2017-11-12] MEDS: Ascorbic Acid 500 MG Tablet PO SCH ×2 (10:24→22:00)
[2017-11-12] MEDS: Calcium Carbonate 500 MG Tablet PO SCH ×2 (10:24→22:00)
[2017-11-12] MEDS: Famotidine PF Inj 20 MG/2 ML Vial IV.PUSH SCH ×2 (10:24→22:00)
[2017-11-12] MEDS ORDERED: Acetaminophen 325 MG Tablet PO ONE (13:15)
[2017-11-12] MEDS ORDERED: Sodium Chloride 0.9% 2 ML Flush PRN IV.FLUSH (14:56)
--- NOTE | 2017-11-12 15:04 | MB ---
cc: Henrik Shin MD DATE: 11/12/2017 HISTORY OF PRESENT ILLNESS: Ms. Shukla is a 71-year-old white female with COPD, whom I have followed now over the course of the last several months. She clearly has interstitial lung disease, which at least radiographically and clinically has also progressed. She has a longstanding history of Sjogren's, so she was actually sent to the [facility] about a month ago for a second opinion. Their diagrammer and seamer and printer assistant did not think that the interstitial disease was related to her autoimmune disorder and felt that she had COPD/fibrosis. At that point, the patient was on a large dose of prednisone and it had some response to that after an acute exacerbation of her lung disease, but we tapered that down and I believe she was off by the time she presented here. She presented here yesterday after calling me on the phone and was obviously in severe distress, unable to breathe even at rest. Her friend, Leslye, was at her home at that time and I suggested she call 911. I was not aware that she had been seen by hospice. That was arranged through her primary care physician, but in light of the fact that that was new and the patient had not made a definitive decision regarding resuscitation status, she was brought into the emergency room. On presentation, she was in extreme respiratory distress, placed on BiPAP, given diuretics corticosteroids and aerosolized bronchodilators, and has improved considerably since I spoke to her yesterday. During this interview, she is awake, alert, comfortable at rest. O2 saturations are in the mid 90s on 4-5 liters of oxygen, which she has been using at home and she is able to carry on a conversation, which she was unable to do yesterday. This came on rather suddenly, although she has been short of breath on high flow oxygen at home for the last few months. She had no chest pain, no hemoptysis, no fever or purulent sputum and minimal increase in edema in her legs. PAST MEDICAL HISTORY: Hysterectomy ectopic , several fractured bones corrected. She also had a thoracotomy for benign disease years ago and had an adrenalectomy, presumably for cancer, also years ago. There has never been a recurrence of that. She smoked up to the time that I met her about 4 or 5 months ago, had smoked her entire adult life. No excessive alcohol use. No illicit drug use. She was inhaling a marijuana extract for palliative relief of shortness of breath and musculoskeletal discomfort prior to an admission here this summer. She discontinued its use as we thought that might have been contributing to her shortness of breath. SOCIAL HISTORY: She lives alone, tries to manage her own affairs, although recently that is becoming more difficult. MEDICATIONS: Reviewed in the EMR. REVIEW OF SYSTEMS: Other than that noted above, she has had no presyncopal symptoms, no fever, no nausea, vomiting, abdominal pain or recent change in bowel habits. Minimal fluid retention in her legs. ALLERGIES: LEVAQUIN AND ADALAT. PHYSICAL EXAM: GENERAL: She is awake, alert, comfortable at rest. VITAL SIGNS: Her pulse is 100. Her respirations are 22, O2 saturations 93-95% on 4-5 liters nasal oxygen. HEENT: Sclerae are anicteric. Mucous membranes are moist. NECK: Her neck veins are flat. She has basilar rales in both lungs with no wheezes, no congestion. HEART: Regular rhythm. No harsh murmur. No audible S3. EXTREMITIES: Minimal ankle edema. No calf tenderness. LABORATORY DATA: Chest x-ray reveals interstitial disease, no significant change from previous. Arterial blood gas yesterday on BiPAP, pO2 is 80, pH 7.49, pCO2 is 30, that was on 50%. White count was normal at 6800, hemoglobin 13, and platelet count 168. BUN and creatinine were normal. Nasal screen for MRSA was negative. DISCUSSION: Ms. Shukla has known COPD, but also interstitial lung disease, which at least clinically seems to have worsened rather rapidly when we tapered her prednisone. We will continue the IV corticosteroids. She is clearly improved when compared to yesterday, probably primarily a consequence of the steroids and also continue her on aerosol therapy and antibiotics at least initially until cultures have returned. We have had a lengthy discussion today about her code status. She had signed up for hospice about a week ago. They had not responded when 911 picked her up. At this point, she does want to continue all medical therapies, but in the event of further decline, she does not want to be intubated or have cardiac resuscitation. Therefore, I have made her a DNR, but we will continue all other therapies including BiPAP if needed. Further diagnostic and/or therapeutic measures will depend on her response and ongoing clinical course. R. Satya Shin MD RSW/sv , 01:55 PM , 02:05 PM
[2017-11-12] MEDS: Enoxaparin Inj 40 MG/0.4 ML Syringe SQ SCH (19:32)
[2017-11-12] MEDS: Sodium Chloride 0.9% 2 ML Flush BID IV.FLUSH SCH (22:02)
[2017-11-12] MEDS: ALPRAZolam 0.5 MG Tablet PO PRN (23:24)
[2017-11-13] MEDS: MethylPREDNISolone Sod Succinate Inj 125 MG/2 ML Vial IV.PUSH SCH ×3 (05:32→20:22)
[2017-11-13] MEDS: Levothyroxine 50 MCG Tablet PO SCH (05:33)
[2017-11-13] MEDS: ALPRAZolam 0.5 MG Tablet PO PRN (05:34)
[2017-11-13 05:59] LABS: Hematocrit 40.1 % (35.0-46.0); Hemoglobin 13.7 gm/dL (11.6-15.3); Mean Corpuscular HGB Conc 34.2 % (32.0-36.0); Mean Corpuscular Volume 99.3 fL (80.0-100.0); Mean Platelet Volume 7.4 fL (7.0-11.0); Platelet Count 205 th/mm3 (150-450); Red Blood Count 4.04 mil/mm3 (4.00-5.30); Red Cell Distribution Width 15.7 % (11.6-17.2); White Blood Count 10.2 th/mm3 (4.0-11.0)
[2017-11-13 06:36] LABS: Alanine Aminotransferase 27 U/L (10-53); Albumin 3.5 g/dL (3.4-5.0); Alkaline Phosphatase 79 U/L (45-117); Anion Gap 10 meq/L (5-15); Aspartate Aminotransferase 25 U/L (15-37); Blood Urea Nitrogen 19 mg/dL (7-18); Calcium 8.9 mg/dL (8.5-10.1); Carbon Dioxide 28.6 meq/L (21.0-32.0); Chloride 98 meq/L (98-107); Glomerular Filtration Rate 74 mL/min (>89); Glucose,Random 163 mg/dL (74-106); Magnesium 2.5 mg/dL (1.5-2.5); Potassium 3.4 meq/L (3.5-5.1); Sodium 137 meq/L (136-145); Total Protein 7.3 g/dL (6.4-8.2)
[2017-11-13] MEDS: Chlorhexidine Gluconate 2% 1 Pack (2 Cloths) TOPICAL SCH (06:39)
--- NOTE | 2017-11-13 07:03 | XR ---
EXAM DATE: 11/13/2017 6:00 AM EDT AGE/SEX: 72 years / Female INDICATIONS: Shortness of breath, possible pulmonary disease. CLINICAL DATA: This is the patient's subsequent encounter. Patient reports that signs and symptoms h ave been present for 4 - 6 days and indicates a pain score of 0/10. MEDICAL/SURGICAL HISTORY: Asthma. Chronic obstructive pulmonary disease. Chronic bronchitis. None. [place] [facility] [place]12/[place]. . FINDINGS: Portable AP view of the chest demonstrates a normal-sized cardiac silhouette. Lungs are underinflated and there is stable and abnormal interstitial and airspace opacity bilaterally, left greater than ri ght. No pleural effusion or pneumothorax is identified. Bones and soft tissues demonstrate no acute a bnormality. There are old right rib fractures and there is a plate at the distal aspect of the left c lavicle. CONCLUSION: Stable chest x-ray with bilateral interstitial and airspace opacities, left greater than right. Electronically signed by: Guzman Esquivel MD 11/13/2017 7:01 AM EDT
--- NOTE | 2017-11-13 08:18 | P.PNCC ---
Subjective Subjective Remarks/Hospital Course: 72-year-old female with end-stage COPD and interstitial lung disease was brought in by paramedics in profound respiratory distress. At home she wears 4 L of nasal cannula but with any activity she puts it up anywhere from 8-10 L. Paramedics gave her nebulizer route and IV steroids. She denies chest pain or productive cough or fever. Paramedics report that she is a DNR patient and has enrolled in [facility] hospice. No further history is obtainable due to patient respiratory distress and facemask BiPAP. SUBJ 11/12: Remains on BiPAP quite tachypneic, receiving IV steroids breathing treatments antibiotics and Lasix. Chest x-ray shows bilateral significant interstitial infiltrates. I have discussed her case with Dr. Shin stable cleaner yesterday. He has reported previous response to high-dose IV steroids. Continue Solu-Medrol 80 mg every 6 hours 11/13: Breathing more comfortably today currently on 6 L nasal cannula. Mild shortness of breath which is present at baseline. Subjectively patient feels improved. CODE STATUS was changed to DNR by Dr. Shin after discussion with the patient Objective Vital Signs / I&O: Vital Signs 11/12/17 10:25 11/12/17 11:18 11/12/17 14:17 Pulse Rate 105 H 105 H Respiratory Rate 16 22 22 Pulse Oximetry 11/12/17 16:27 11/12/17 20:00 11/12/17 21:02 Pulse Rate 112 H 107 H Respiratory Rate 22 24 Pulse Oximetry 94 L 11/13/17 00:43 11/13/17 04:51 Pulse Rate 89 94 H Respiratory Rate 27 H 22 Pulse Oximetry Intake & Output 11/12/17 11/13/17 11/13/17 18:59 06:59 18:59 Intake Total 200 / 200 480 / 480 Output Total 750 / 750 Balance 200 / 200 -270 / -270 Weight 57 kg Intake: IV 200 / 200 Maxipime Inj 2,000 MG In NS Inj 200 / 200 100 ML @ 200 mls/hr IV.SIG Q12H [facility] Rx#:[id number] Oral 480 / 480 Output: Urine 750 / 750 Other: # Voids 6 Date of Last Bowel Movement 11/12/17 # Bowel Movements 1 Result Diagrams: 11/13/17 05:07 11/13/17 05:07 Objective Remarks: - Constitutional Mild distress, on NC - Routine HEENT Exam Head: normocephalic, atraumatic - Routine Neck Exam supple. Absent: JVD, carotid bruit - Routine Respiratory Exam Mild accessory muscle use, few rales, rhonchi. No stridor, wheezes - Routine Cardiovascular Exam RRR, S1, S2. No murmurs - Routine Abdominal Exam soft, normoactive bowel sounds. No tenderness, distended, rebound - Routine Extremities Exam No cyanosis, clubbing, edema - Routine Skin Exam No erythema - Routine Neurological Exam Moving all extremities. Follows commands no focal deficits Assessment and Plan - Assessment and Plan Plan: Neuro: Chronic pain Anxiety/depression -Use morphine for pain and anxiety, continue Xanax -Continue citalopram Resp: Acute hypoxemic respiratory failure-improving Interstitial lung disease/? secondary to Sjgren Acute COPD exacerbation End-stage lung disease -Pulmonary Dr. Shin is following -IV steroids Solu-Medrol 80 mg IV every 8 hours -Empiric antibiotic with cefepime -DuoNeb every 4 hours scheduled and as needed -Possible pulmonary edema on the CXR, continue to diurese -Interstitial changes are most likely secondary to ILD CV: -Pulmonary infiltrates most likely secondary to interstitial lung disease -Continue IV diuretics to attempt to improve oxygenation -Discontinue IV Lasix, start p.o. Lasix 20 mg twice daily GI: -Cardiac diet, IV Protonix : -Strict intake output ID: -Continue empiric cefepime follow-up on cultures Endo: Hypothyroidism -Levothyroxine DVT GI prophylaxis -Teds SCDs -Subcu Lovenox -Pepcid Level 2 Consult hospitalist to assume care 11/14/2017. Transferred to Stepdown unit Code Status: DNR Discussed Condition With: Dr. Shin
[2017-11-13] MEDS: Ascorbic Acid 500 MG Tablet PO SCH ×2 (08:37→20:21)
[2017-11-13] MEDS: Morphine Sulfate 15 MG SR Tablet PO SCH ×2 (08:37→20:20)
[2017-11-13] MEDS: Gabapentin 300 MG Capsule PO SCH (08:37)
[2017-11-13] MEDS: Calcium Carbonate 500 MG Tablet PO SCH ×2 (08:38→20:20)
[2017-11-13] MEDS: Vitamin B Complex/Vitamin C Tablet PO SCH (08:38)
[2017-11-13] MEDS: Famotidine PF Inj 20 MG/2 ML Vial IV.PUSH SCH ×2 (08:39→20:21)
[2017-11-13] MEDS: Celecoxib 100 MG Capsule PO SCH ×2 (08:46→21:03)
[2017-11-13] MEDS ORDERED: Furosemide 20 MG Tablet PO SCH (09:00)
--- NOTE | 2017-11-13 10:29 | P.CONPAL ---
Consult Service: Palliative Care Requesting Physician: yEad Hinds Reason for Consult: a. To assist with evaluation and management of symptoms including: Dyspnea, anxiety b. To assist medical decision maker(s) with: better understanding of current medical conditions; weighing benefits/burdens of medical treatment options; making medical treatment decisions. Primary Care Provider: Tono Delgado DO History of Present Illness History of Present Illness: This is a 72-year old with a history of end-stage COPD, interstitial lung disease currently enrolled in [facility] hospice, who presented to the emergency room 11/11 in profound respiratory distress. She became profoundly dyspneic at home and summoned 911 when [employer] did not respond to her call after 4 hours. She confirmed a DO NOT RESUSCITATE status with the physician in the ED. She was placed on BiPAP, but has refused intubation, as she feels she would likely never get off the ventilator as well as CPR due to her multiple broken ribs and unstable thoracic cage. She would however wish aggressive treatment up to that point. Clinical findings on admission: * Vital signs: Blood pressure 115/69, heart rate 114, respiratory rate 32, pulse ox 86%, temperature 99.0 * WBC 6.8, hemoglobin 12.7, hematocrit 37.4, platelets 168, ABG pH 7.49, PCO2 30 , PaO2 80, HCO3 22, base excess -0.51 BiPAP/BiPAP 15/APAP 5, 50% sodium 133, potassium 4.2, BUN 15, creatinine 0.64, AST 50, ALT 28. * EKG shows sinus tachycardia 116 bpm with normal OK interval and axis. No ST elevations. * Chest x-ray shows diffuse increased interstitial markings bilaterally with some airspace disease suggestive of pulmonary edema versus pneumonia. Breathing more comfortably today on 6 L nasal cannula. She is dyspneic at rest , worsening with speech or activity. Dyspnea is moderate, requiring short rests during conversation, constant duration. Pursed lipped breathing is evident, without accessory muscle use. She states conversation exhausts her. Previous pulmonary function test done 06/08/2017 showed FVC and FEV1 normal, static. FRC, RV, TLC normal. Tidal flows: FEV 1% normal, FEF 25-75 moderately reduced, diffusion moderately reduced. Flow volume loop showed terminal airflow obstruction with interpretation of mild obstructive ventilatory defect with no hyperinflation and mild to moderate reduction in diffusion with no improvement postbronchodilator. This is a well-developed, well-nourished, alert, oriented female sitting up in bed in no acute distress. She does appear mildly dyspneic at rest, but is able to converse. She clearly outlined her goals of care which have been well documented in her living will and healthcare surrogate and have been scanned into the system. She is awaiting transfer to another room. Her primary distress at this time is that her roommate is confused and sang all night, allowing her very little sleep. She has visible, mild anxiety, constant in duration, worsening as her dyspnea worsens, improved by rest and oxygen, worsened by activity and conversation. Past medical history Left wrist fracture Fibula fracture Rib fracture Sternum fracture End-stage COPD Interstitial lung disease Sjogren's Hypothyroidism Raynaud's syndrome Surgical history Eye surgery Thoracotomy Tonsillectomy partial adrenalectomy Social history Former smoker, quit 5 months ago after lifetime use. Social alcohol history Previously used and inhaled marijuana extract for palliative relief of dyspnea but stopped. Family history No known family illnesses. . Function/Cognitive Trajectory: Up until October 2016, she states she was in very good health and very active. Lung scan in 10/23 showed interstitial lung disease and she states that she has chronically progressed from that time. She now requires continuous O2 at home via concentrator with tanks for portability. She has limited her visitations with friends as it is difficult to maintain a long conversation. She was admitted to [facility] on 09/03/17 and 11/11/17 with severe dyspnea. She reports having progressive anxiety secondary to dyspnea and states that she would like to be medicated in case of recurrent anxiety. She enrolled in [facility] hospice 1 week ago however when she called for assistance, she did not receive a response for more than 4 hours, so instead called 911. She is having more difficulty completing ADLs due to the dyspnea, but currently remains living independently. . 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 - Medical History Medical History: Medical History (Last Reviewed 11/11/17 @ 15:26 by Angela Pugh) Fracture of left wrist Fracture, fibula Fracture, ribs Fractured sternum H/O: hysterectomy History of ectopic History of fractured rib COPD (chronic obstructive pulmonary disease) - Surgical History Surgical History: Surgical History (Last Reviewed 11/11/17 @ 15:26 by Angela Pugh) History of eye surgery History of thoracotomy History of tonsillectomy Hx of partial adrenalectomy - Tobacco History Second Hand Smoke Exposure: No Tobacco Use In Past 30 Days: No Smoking Status: Former smoker Tobacco Type: Cigarettes - Alcohol History How Often Do You Have a Drink Containing Alcohol: Never - Substance Use History Substance History: No History of Abuse - Travel History Recent Travel in the [place] Within the Last 8 Weeks: No Recent Travel Out of the Country Within the Last 8 Weeks: No - Immunization History Tetanus Immunization: Unsure Medications and Allergies Active Medications: Active Medications Hydrocodone Bitart/Acetaminophen ([place] 5/325) 1 tab PO Q4H PRN PRN Reason: PAIN 1-10 Last Admin: 11/13/17 05:33 Dose: 1 tab Albuterol (Duoneb Neb (Prn)) 1 ampul NEB Q4HR NEB PRN PRN Reason: SHORTNESS OF BREATH Albuterol (Duoneb Neb (Jenny)) 1 ampul NEB Q4HR NEB PENDING SALE TO [facility] Last Admin: 11/13/17 08:17 Dose: 1 ampul Alprazolam (Xanax) 0.5 mg PO Q6HR PRN PRN Reason: ANXIETY AND/OR AGITATION Last Admin: 11/13/17 05:34 Dose: 0.5 mg Artificial Tears (Refresh Tears 0.5% Opth Drops) 1 drop EACH EYE Q2H PRN PRN Reason: DRY EYES Ascorbic Acid (Vitamin C) 1,000 mg PO BID PENDING SALE TO [facility] Last Admin: 11/13/17 08:37 Dose: 1,000 mg Calcium Carbonate (Oscal) 500 mg PO BID PENDING SALE TO [facility] Last Admin: 11/13/17 08:38 Dose: 500 mg Celecoxib (Celebrex) 100 mg PO BID PENDING SALE TO [facility] Last Admin: 11/13/17 08:46 Dose: 100 mg Chlorhexidine Gluconate (Chlorhexidine 2% Cloth) 3 pack TOPICAL DAILY@0400 PENDING SALE TO [facility] Stop: 11/17/17 03:59 Last Admin: 11/13/17 06:39 Dose: 3 pack Chlorhexidine Gluconate (Chlorhexidine 2% Cloth) 3 pack TOPICAL DAILY@0400 PRN PRN Reason: Extra cloth needed Stop: 11/17/17 03:59 Citalopram Hydrobromide (Celexa) 40 mg PO DAILY PENDING SALE TO [facility] Last Admin: 11/13/17 08:37 Dose: 40 mg Enoxaparin Sodium (Lovenox Inj) 40 mg SQ Q24H PENDING SALE TO [facility] Last Admin: 11/12/17 19:32 Dose: 40 mg Famotidine (Pepcid Pf Inj) 20 mg IV.PUSH Q12HR PENDING SALE TO [facility] Last Admin: 11/13/17 08:39 Dose: 20 mg Fluticasone Propionate (Flonase Nasal [place]) 2 spray EACH NARE DAILY PENDING SALE TO [facility] Last Admin: 11/12/17 10:22 Dose: Not Given Fluticasone/Vilanterol (Breo Ellipta 100/25 Mcg Inh) 1 puff INH DAILY PENDING SALE TO [facility] Last Admin: 11/13/17 08:36 Dose: 1 puff Furosemide (Lasix) 20 mg PO BID@0900,1800 PENDING SALE TO [facility] Last Admin: 11/13/17 08:37 Dose: 20 mg Gabapentin (Neurontin) 300 mg PO DAILY PENDING SALE TO [facility] Last Admin: 11/13/17 08:37 Dose: 300 mg Cefepime HCl 2,000 mg/ Sodium (Chloride) 100 mls @ 200 mls/hr IV.SIG Q12H PENDING SALE TO [facility] Last Admin: 11/13/17 05:33 Dose: 200 mls/hr Levothyroxine Sodium (Synthroid) 50 mcg PO DAILY@0600 PENDING SALE TO [facility] Last Admin: 11/13/17 05:33 Dose: 50 mcg Methylprednisolone Sodium Succinate (Solumedrol Inj) 80 mg IV.PUSH Q6HR PENDING SALE TO [facility] Last Admin: 11/13/17 05:32 Dose: 80 mg Morphine Sulfate (Morphine Inj) 2 mg IV.PUSH Q2H PRN PRN Reason: PAIN 6-10 Last Admin: 11/12/17 08:30 Dose: 2 mg Morphine Sulfate (Oramorph Sr) 15 mg PO Q12H PENDING SALE TO [facility] Last Admin: 11/13/17 08:37 Dose: 15 mg Pt Own ( Difluprednate [ Durezol] 1 Drp) Opth Solu 1 each EACH EYE DAILY PENDING SALE TO [facility] Pt Own (Brinzolamide -Brimonidine [ Simbrinza] 1 each EACH EYE TID PENDING SALE TO [facility] Potassium Chloride (K-Dur) 20 meq PO BID PENDING SALE TO [facility] Last Admin: 11/13/17 08:37 Dose: 20 meq Sodium Chloride (Ns Flush) 2 ml IV.FLUSH BID PENDING SALE TO [facility] Last Admin: 11/12/17 22:02 Dose: 2 ml Sodium Chloride (Ns Flush) 2 ml IV.FLUSH PRN PRN PRN Reason: FLUSH AFTER USING IV ACCESS Tizanidine HCl (Zanaflex) 2 mg PO BID PRN PRN Reason: MUSCLE SPAMPS Vitamin B Complex/Vitamin C (Allbee C) 1 tab PO DAILY JENNY Last Admin: 11/13/17 08:38 Dose: 1 tab Allergies Allergy/AdvReac Type Severity Reaction Status Date / Time levofloxacin [From Levaquin] AdvReac Swelling Verified 11/11/17 15:29 ADALAT Allergy Severe RACES HEART Uncoded 11/11/17 15:29 Home Medications Medication Instructions Recorded Confirmed Type albuterol sulfate [ProAir HFA] 2 puff INHALATION Q4H PRN 09/03/17 11/11/17 History alprazolam 0.5 mg PO DAILY PRN 09/03/17 11/11/17 History artificial tear(nesgy-yen-lnp) 1 drp OPHTHALMIC (EYE) Q2-4H PRN 09/03/17 History ascorbic acid (vitamin C) [Vitamin 1,000 mg PO Q12H 09/03/17 11/11/17 History C] calcium carbonate [Calcium 600] 600 mg PO BID 09/03/17 11/11/17 History celecoxib [Celebrex] 100 mg PO BID 09/03/17 11/11/17 History citalopram 40 mg PO DAILY 09/03/17 11/11/17 History difluprednate [Durezol] 1 drp OPHTHALMIC (EYE) DAILY 09/03/17 11/11/17 History fluticasone 2 spray INTRANASAL DAILY 09/03/17 11/11/17 History fluticasone-vilanterol [Breo 1 inh INHALATION DAILY 09/03/17 11/11/17 History Ellipta] hydrocodone-acetaminophen 1 tab PO Q4-6H PRN 09/03/17 11/11/17 History ipratropium-albuterol 3 ml INHALATION QID 09/03/17 11/11/17 History levothyroxine 50 mcg PO DAILY 09/03/17 11/11/17 History tizanidine 2 mg PO BID PRN 09/03/17 11/11/17 History vitamin H20-[id number] acid 1 tab PO DAILY 09/03/17 11/11/17 History brinzolamide-brimonidine 1 drp OPHTHALMIC (EYE) TID 11/11/17 11/11/17 History [Simbrinza] gabapentin 300 mg PO DAILY 11/11/17 11/11/17 History morphine 15 mg PO Q12H 11/11/17 11/11/17 History Advance Directives Living Will: Yes Healthcare Surrogate: Yes Health Care Surrogate Name and Number: Luiza Tyler [phone], Alt. Scotty Hutchins [phone] Power of Ed Physicians: No Documented care wishes: Standard living will verbiage Today's verbally stated goals: Would like aggressive medical treatment short of NO CODE, but if symptomatic with dyspnea, would like sedating meds to ease the discomfort. . Physical Exam Vital Signs: Vital Signs - 24 hr 11/12/17 10:25 11/12/17 11:18 11/12/17 14:17 Pulse Rate 105 H 105 H Respiratory Rate 16 22 22 Pulse Oximetry 11/12/17 16:27 11/12/17 20:00 11/12/17 21:02 Pulse Rate 112 H 107 H Respiratory Rate 22 24 Pulse Oximetry 94 L 11/13/17 00:43 11/13/17 04:51 11/13/17 08:00 Pulse Rate 89 94 H Respiratory Rate 27 H 22 Pulse Oximetry 97 11/13/17 08:17 Pulse Rate 83 Respiratory Rate 18 Pulse Oximetry I&O: Intake & Output 11/11/17 11/12/17 11/13/17 11/14/17 06:59 06:59 06:59 06:59 Intake Total 100 / 100 680 / 680 Output Total 1949 / 1949 750 / 750 Balance -1850 / -1850 -70 / -70 Weight 132 lb 4.438 oz 125 lb 10.616 oz Physical Exam: CONSTITUTIONAL/GENERAL: This is an adequately nourished patient, in no apparent distress. TUBES/LINES/DRAINS: PIV SKIN: No jaundice, rashes, or lesions. Ecchymoses on upper extremities. No wounds seen anteriorly. Skin temperature appropriate. Not diaphoretic. HEAD: Atraumatic. Normocephalic. EYES: Pupils equal and round and reactive. Extraocular motions intact. No scleral icterus. No injection or drainage. Fundi not examined. ENT: Hearing grossly normal. Nose without bleeding or purulent drainage. Throat without visible erythema, exudates, masses, or lesions. NECK: Trachea midline. Supple, nontender. No palpable thyroid enlargement or nodularity. CARDIOVASCULAR: S1, S2, regular rhythm, tachycardic rate, without murmurs, gallops, or rubs. No JVD. Peripheral pulses symmetric. RESPIRATORY/CHEST: Symmetric, unlabored respirations. Clear, diminished to auscultation. Breath sounds equal bilaterally. Bibasilar crackles. No wheezes or rhonchi. Dyspneic with speech and activity GASTROINTESTINAL: Abdomen soft, non-tender, nondistended. No hepato-splenomegaly , or palpable masses. No guarding. Bowel sounds present. GENITOURINARY: Without palpable bladder distension. MUSCULOSKELETAL: Extremities without clubbing, cyanosis, or edema. No joint tenderness or effusion noted. No calf tenderness. No mottling or clubbing. LYMPHATICS: No palpable cervical or supraclavicular adenopathy. NEUROLOGICAL: Awake and alert. Motor and sensory grossly within normal limits. Follows commands. Cognitively sharp. Moves all extremities. PSYCHIATRIC: No obvious depression, mild anxiety. no apparent hallucinations or other psychotic thought process. . Diagnostic Tests Laboratory: Laboratory Results - last 72 hr 11/11/17 11/11/17 11/11/17 15:50 15:50 17:10 WBC 6.8 RBC 3.76 L Hgb 12.7 Hct 37.4 MCV 99.4 MCH 33.7 MCHC 33.9 RDW 15.8 Plt Count 168 MPV 7.1 Prelim Diff (Auto) Slide review pending Neut % (Auto) 74.5 H Lymph % (Auto) 14.7 Cass % (Auto) 5.6 Eos % (Auto) 4.2 H Baso % (Auto) 1.0 Neut # (Auto) 5.1 Lymph # (Auto) 1.0 Cass # (Auto) 0.4 Eos # (Auto) 0.3 Baso # (Auto) 0.1 WBC Differential . Diff Scan Auto diff confirmed Seg Neuts % (Manual) Band Neuts % (Manual) Lymphocytes % (Manual) Monocytes % (Manual) Myelocytes % (Man) Abs Neuts (Manual) Nucleated RBCs/100 WBC Differential Comment . Platelet Estimate Low L Platelet Morphology Normal Basophilic Stippling Spherocytes Ovalocytes Puncture Site Left radial Patient Temperature 98.6 O2 Saturation 94 ABG pH 7.49 H ABG pCO2 30 L ABG pO2 80 ABG HCO3 22 ABG O2 Content 17.6 ABG Base Excess -0.5 ABG Methemoglobin 0.5 Sidney Test Y Hemoglobin 13.3 Carboxyhemoglobin 1.9 O2 Delivery Device Bipap Vent Setting Ipap 15 epap 5 Inspired O2 50 Critical Value No Sodium 133 L Potassium 4.2 Chloride 96 L Carbon Dioxide 26.4 Anion Gap 11 BUN 15 Creatinine 0.64 Estimated GFR Greater than 89 Random Glucose 102 Calcium 8.0 L Magnesium Total Bilirubin 0.4 AST 50 H ALT 28 Alkaline Phosphatase 78 Total Protein 6.2 L Albumin 3.2 L Nasal Screen MRSA (PCR) 11/11/17 11/12/17 11/12/17 21:15 03:47 03:47 WBC 5.5 RBC 3.94 L Hgb 13.1 Hct 38.4 MCV 97.7 MCH 33.4 MCHC 34.2 RDW 16.1 Plt Count 168 MPV 7.4 Prelim Diff (Auto) Slide review pending Neut % (Auto) 91.6 H Lymph % (Auto) 6.4 L Cass % (Auto) 1.6 Eos % (Auto) 0.1 Baso % (Auto) 0.3 Neut # (Auto) 5.0 Lymph # (Auto) 0.4 L Cass # (Auto) 0.1 Eos # (Auto) 0.0 Baso # (Auto) 0.0 WBC Differential Manual diff final Diff Scan Seg Neuts % (Manual) 81 H Band Neuts % (Manual) 13 H Lymphocytes % (Manual) 3 L Monocytes % (Manual) 1 Myelocytes % (Man) 2 H Abs Neuts (Manual) 5.3 Nucleated RBCs/100 WBC 1 H Differential Comment . Platelet Estimate Normal Platelet Morphology Normal Basophilic Stippling Faint H Spherocytes 1+ H Ovalocytes 1+ H Puncture Site Patient Temperature O2 Saturation ABG pH ABG pCO2 ABG pO2 ABG HCO3 ABG O2 Content ABG Base Excess ABG Methemoglobin Sidney Test Hemoglobin Carboxyhemoglobin O2 Delivery Device Vent Setting Inspired O2 Critical Value Sodium 135 L Potassium 3.0 L D Chloride 100 Carbon Dioxide 28.9 Anion Gap 6 BUN 13 Creatinine 0.52 Estimated GFR Greater than 89 Random Glucose 183 H Calcium 8.0 L Magnesium Total Bilirubin 0.6 AST 41 H ALT 26 Alkaline Phosphatase 82 Total Protein 6.7 Albumin 3.2 L Nasal Screen MRSA (PCR) Not detected 11/13/17 11/13/17 05:07 05:07 WBC 10.2 RBC 4.04 Hgb 13.7 Hct 40.1 MCV 99.3 MCH 34.0 MCHC 34.2 RDW 15.7 Plt Count 205 MPV 7.4 Prelim Diff (Auto) Neut % (Auto) Lymph % (Auto) Cass % (Auto) Eos % (Auto) Baso % (Auto) Neut # (Auto) Lymph # (Auto) Cass # (Auto) Eos # (Auto) Baso # (Auto) WBC Differential Diff Scan Seg Neuts % (Manual) Band Neuts % (Manual) Lymphocytes % (Manual) Monocytes % (Manual) Myelocytes % (Man) Abs Neuts (Manual) Nucleated RBCs/100 WBC Differential Comment Platelet Estimate Platelet Morphology Basophilic Stippling Spherocytes Ovalocytes Puncture Site Patient Temperature O2 Saturation ABG pH ABG pCO2 ABG pO2 ABG HCO3 ABG O2 Content ABG Base Excess ABG Methemoglobin Sidney Test Hemoglobin Carboxyhemoglobin O2 Delivery Device Vent Setting Inspired O2 Critical Value Sodium 137 Potassium 3.4 L Chloride 98 Carbon Dioxide 28.6 Anion Gap 10 BUN 19 H Creatinine 0.77 Estimated GFR 74 L Random Glucose 163 H Calcium 8.9 D Magnesium 2.5 Total Bilirubin 0.6 AST 25 ALT 27 Alkaline Phosphatase 79 Total Protein 7.3 D Albumin 3.5 Nasal Screen MRSA (PCR) Result Diagrams: 11/13/17 05:07 11/13/17 05:07 Imaging: Chest X-Ray 11/11/17 15:35 CONCLUSION: Diffuse increased interstitial markings bilaterally with some airspace disease suggestive of pulmonary edema versus pneumonia. Chest X-Ray 11/12/17 06:00 CONCLUSION: No significant change Chest X-Ray 11/13/17 06:00 CONCLUSION: Stable chest x-ray with bilateral interstitial and airspace opacities, left greater than right. Patient/Family Conference Present at Family Conference: Spoke with patient at bedside, reviewed palliative care purpose and focus as well as the below listed items. Discussed presenting symptoms and options for discharge home. Reviewed CODE STATUS, advanced directives and goals of care. Patient is quite clear on her goals and does not want intubation as she feels she will never be extubated secondary to the poor condition of her lungs. She also does not wish to have CPR due to her multiple falls, rib fractures, clavicle fractures, sternal fractures and osteoporosis. She does however wish to have aggressive medical therapy up to that point to include BiPAP. Advanced directives are complete to include healthcare surrogate, alternate surrogate and living will. She will need a [facility] DNR discharge. . Family Conference Location: Bedside Issues Discussed: * Palliative care role, purpose, approach * Additional medical, psychosocial, and spiritual history * Patients general health, functional status, and cognitive changes in the months leading up to the current hospitalization * Patient/family understanding of the current medical problems * Patient/family understanding of prognosis * Patients goals of care as best understood from advance directives and/or conversations and/or values * Current medical treatment options and benefits/burdens of those options * Likely scenarios comparing ongoing aggressive care with a transition to comfort measures only * Questions answered to the best of my ability * Palliative care contact information provided Assessment and Plan Pertinent Non-Medical Issues: Psychosocial: She was born in [place] as the daughter of an [place] soldier and a [place] woman during World War II. At age 13 she moved to [place] and lived in [place] for the next 18 years. She then moved to [place] briefly and then resettled in [place] after her divorce in 1989. 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 She had no children. Spiritual: Spiritual in her own way but does not wish supervisor incising visits. Legal: Advanced directives completed and scanned into the medical record system. Ethical issues impacting care: None noted. . Important Contacts: [facility] Luiza Tyler [phone], Alt. Scotty Hutchins [phone] Prognosis: Her prognosis is guarded. 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 She is O2 dependent. She currently has suspected pneumonia which, given her poor reserve, places her at great risk of continued complications, decline and even . Code Status: No Code DNR Plan: PLAN: Legal decision maker: Patient is currently capacitated for decision-making, however has designated a healthcare surrogate, Luiza Tyler and an alternate, Scotty Hutchins. Goals: Comfort oriented CODE STATUS: DO NOT RESUSCITATE SYMPTOMS: * Dyspnea-she is dyspneic at rest, worsening with activity. This is multifactorial to include COPD as well as interstitial lung disease. She currently remains on 6 L nasal cannula and is saturating adequately. She is currently receiving DuoNeb every 4 hours and every 4 hours as needed, cefepime 2 g every 12 hours empirically, Brio Ellipta 1 puff daily, furosemide 20 mg twice daily, Solu-Medrol 80 mg IV every 6 hours and morphine 2 mg IV every 2 hours is available as needed. She has received 1 dose of morphine in the past 24 hours but no additional DuoNeb above the scheduled dose. * Anxiety-she feels this is mostly related to her dyspnea and air hunger. She is receiving Xanax 0.5 mg every 6 hours as needed and Celexa 40 mg p.o. daily. At this time it appears adequate to maintain her symptoms. She has received 2 doses in the last 12 hours. SUMMARY She has both COPD and interstitial lung disease and has experienced a sharp decline over the last year. She was previously very active and independent is now having to curtail activities, social interactions and even conversations. Given her end-stage lung disease, she is hospice appropriate but was unhappy with [facility] services, due to their lack of response to her imminent need. We have discussed options of home health, private caregiver and [facility] hospice services upon discharge. She states that she wishes to speak with [facility] regarding their services and would consider that as long as her primary care provider could remain her attending and she could continue to see Dr. Bartolo Shin as her sales and customer relations rep. She wishes to wait until tomorrow for that consultation as she is exhausted from lack of sleep and work of breathing today. This will be revisited with the patient morning for further decision- making. Palliative care will continue to follow the patient during hospital course as condition evolves, to assist patient/decision-maker with understanding of their medical conditions, weighing benefits/burdens of treatment options, for clarification of goals of treatment. Additionally will assist with any symptoms of palliative concern. . Appreciation Thank you for the opportunity to participate in the care of Rosy Shukla. Attestation Attestation: To help prompt me to consider important information that might be impacting today's encounter and assessment, information from prior notes written by myself or my colleagues may have been "brought forward" into today's note. My signature on this note, however, is an attestation that I personally performed the exam, history, and/or decision-making noted today, and, unless otherwise indicated, the interactions with patient, family, and staff as well as the review of records all occurred today. I also attest that the listed assessment and stated plan reflect my best clinical judgment today based on the combination of historical information, prior notes, and today's exam/ interactions. When time spent is documented, it refers only to time spent today by the signer, or if indicated, combined time spent today by collaborating physician/nurse practitioner. .
[2017-11-13] MEDS: Sodium Chloride 0.9% 2 ML Flush BID IV.FLUSH SCH ×2 (10:47→20:21)
[2017-11-13] MEDS: Enoxaparin Inj 40 MG/0.4 ML Syringe SQ SCH (17:44)
[2017-11-14] MEDS: Chlorhexidine Gluconate 2% 1 Pack (2 Cloths) TOPICAL SCH (04:28)
[2017-11-14] MEDS: Levothyroxine 50 MCG Tablet PO SCH (05:02)
[2017-11-14] MEDS: ALPRAZolam 0.5 MG Tablet PO PRN ×2 (05:02→12:32)
[2017-11-14 07:47] LABS: Hematocrit 37.4 % (35.0-46.0); Hemoglobin 12.7 gm/dL (11.6-15.3); Mean Corpuscular HGB Conc 33.9 % (32.0-36.0); Mean Corpuscular Hemoglobin 33.5 pg (27.0-34.0); Mean Corpuscular Volume 98.8 fL (80.0-100.0); Mean Platelet Volume 7.2 fL (7.0-11.0); Platelet Count 208 th/mm3 (150-450); Red Blood Count 3.78 mil/mm3 (4.00-5.30); Red Cell Distribution Width 16.1 % (11.6-17.2); White Blood Count 9.1 th/mm3 (4.0-11.0)
--- NOTE | 2017-11-14 07:47 | XR ---
EXAM DATE: 11/14/2017 6:00 AM EDT AGE/SEX: 72 years / Female INDICATIONS: Short of breath, evaluate respiratory disease CLINICAL DATA: This is the patient's subsequent encounter. Patient reports that signs and symptoms h ave been present for 1 week and indicates a pain score of 0/10. MEDICAL/SURGICAL HISTORY: Asthma. Chronic obstructive pulmonary disease. interstitial lung dis ease, clavicle fracture . ORIF clavicle COMPARISON: [facility], CHEST 1V SINGLE AP, 11/13/2017. . FINDINGS: A single AP erect portable view of the chest was obtained and again demonstrates hazy opacity in both lungs without significant change. There is no distinct effusion. The heart size appears mildly promi nent. Screw-plate fixation device is again noted along the left clavicle. The study is mid inspirator y. CONCLUSION: No significant change. Bilateral hazy airspace disease again noted no new consolidation. Electronically signed by: Clint Weir MD 11/14/2017 7:45 AM EDT
[2017-11-14 08:16] LABS: Alanine Aminotransferase 23 U/L (10-53); Albumin 3.2 g/dL (3.4-5.0); Alkaline Phosphatase 68 U/L (45-117); Anion Gap 8 meq/L (5-15); Aspartate Aminotransferase 17 U/L (15-37); Blood Urea Nitrogen 27 mg/dL (7-18); Calcium 9.2 mg/dL (8.5-10.1); Carbon Dioxide 26.5 meq/L (21.0-32.0); Chloride 101 meq/L (98-107); Glomerular Filtration Rate 88 mL/min (>89); Glucose,Random 125 mg/dL (74-106); Potassium 4.6 meq/L (3.5-5.1); Sodium 135 meq/L (136-145); Total Protein 6.5 g/dL (6.4-8.2)
[2017-11-14] MEDS: Morphine Sulfate 15 MG SR Tablet PO SCH ×2 (08:39→21:05)
[2017-11-14] MEDS: Gabapentin 300 MG Capsule PO SCH (08:41)
[2017-11-14] MEDS: Calcium Carbonate 500 MG Tablet PO SCH ×2 (08:41→21:07)
[2017-11-14] MEDS: Furosemide 20 MG Tablet PO SCH (08:41)
[2017-11-14] MEDS: Famotidine PF Inj 20 MG/2 ML Vial IV.PUSH SCH ×2 (08:42→21:07)
[2017-11-14] MEDS: MethylPREDNISolone Sod Succinate Inj 125 MG/2 ML Vial IV.PUSH SCH (08:42)
[2017-11-14] MEDS: Ascorbic Acid 500 MG Tablet PO SCH ×2 (08:42→21:09)
[2017-11-14] MEDS: Sodium Chloride 0.9% 2 ML Flush BID IV.FLUSH SCH ×2 (08:43→21:04)
[2017-11-14] MEDS: Celecoxib 100 MG Capsule PO SCH ×2 (09:39→21:03)
[2017-11-14] MEDS: Vitamin B Complex/Vitamin C Tablet PO SCH (09:39)
--- NOTE | 2017-11-14 12:38 | P.PNIM ---
Subjective Interval history: 72-year-old female with end-stage COPD and interstitial lung disease was brought in by paramedics in profound respiratory distress. At home she wears 4 L of nasal cannula but with any activity she puts it up anywhere from 8-10 L. Paramedics gave her nebulizer route and IV steroids. She denies chest pain or productive cough or fever. Paramedics report that she is a DNR patient and has enrolled in [facility] hospice. No further history is obtainable due to patient respiratory distress and facemask BiPAP. SUBJ 11/12: Remains on BiPAP quite tachypneic, receiving IV steroids breathing treatments antibiotics and Lasix. Chest x-ray shows bilateral significant interstitial infiltrates. I have discussed her case with Dr. Shin barn hand yesterday. He has reported previous response to high-dose IV steroids. Continue Solu-Medrol 80 mg every 6 hours 11/13: Breathing more comfortably today currently on 6 L nasal cannula. Mild shortness of breath which is present at baseline. Subjectively patient feels improved. CODE STATUS was changed to DNR by Dr. Shin after discussion with the patient 11-14 TRANSFERRED TO OUR SERVICE TODAY DW RN AND PT AND CM PATIENT HAS BASELINE SOB IS A DNR SLOW IMPROVEMENT NEEDS TO DISCUSS WITH PALLIATIVE CARE MAY NEED TO SWITCH HOSPICE AT ME TO [place] [facility] OF [facility] VERY ANXIOUS ABOUT SITUATION THAT BROUGHT HER TO THE HOSPITAL PT AND OT INCREASE ACTIVITY HAS COPD AND INTERSTITIAL LUNG DISEASE THAT BOTH APPEAR ENDSTAGE Physical Exam Vital signs: Vital Signs 11/13/17 14:05 11/13/17 20:00 11/13/17 20:35 Pulse Rate 82 89 76 Respiratory Rate 18 18 Pulse Oximetry 96 11/14/17 01:27 11/14/17 05:27 11/14/17 07:46 Pulse Rate 57 L 70 82 Respiratory Rate 20 Pulse Oximetry 98 Intake & Output 11/13/17 11/14/17 11/14/17 18:59 06:59 18:59 Intake Total 340 / 340 500 / 500 Output Total 600 / 600 Balance 340 / 340 -100 / -100 Intake: IV 100 / 100 100 / 100 Maxipime Inj 2,000 MG In NS Inj 100 / 100 100 / 100 100 ML @ 200 mls/hr IV.SIG Q12H GENIA Rx#:[id number] Oral 400 / 400 Tube Feeding 240 / 240 Output: Urine 600 / 600 Other: # Voids 1 Date of Last Bowel Movement 11/12/17 11/12/17 11/13/17 Narrative: GENERAL: AWAKE ALERT AND ORIENTED X3 -SOB ON ANY EXERTION-QUITE ANXIOUS-SPEAKS IN ONLY A FEW WORDS SKIN: Warm and dry. HEAD: Atraumatic. Normocephalic. EYES: Pupils equal and round. No scleral icterus. No injection or drainage. ENT: No nasal bleeding or discharge. Mucous membranes pink and moist. NECK: Trachea midline. No JVD. CARDIOVASCULAR: Regular rate and rhythm. S1, S2 NO S3 OR S4 RESPIRATORY: No accessory muscle use. COARSE BS BL FEW RHONCHI. Breath sounds equal bilaterally. GASTROINTESTINAL: Abdomen soft, non-tender, nondistended. Hepatic and splenic margins not palpable. MUSCULOSKELETAL: Extremities without clubbing, cyanosis, or edema. No obvious deformities. NEUROLOGICAL: Awake and alert. No obvious cranial nerve deficits. Motor grossly within normal limits. Five out of 5 muscle strength in the arms and legs. Normal speech. PSYCHIATRIC: Appropriate mood and affect; insight and judgment normal. - Urinary Catheter Management Indwelling Urethral Catheter Cath placed during this visit: yes, but has since been removed by the nurse Reason for continuing: Continue criteria not met Insertion date: 11/11/17 Insertion time: 17:55 Removal date: 11/12/17 Removal time: 10:00 Results - Labs CBC & Chem 7: 11/14/17 07:15 11/14/17 07:15 Laboratory Results - last 24 hr 11/14/17 11/14/17 07:15 07:15 WBC 9.1 RBC 3.78 L Hgb 12.7 Hct 37.4 MCV 98.8 MCH 33.5 MCHC 33.9 RDW 16.1 Plt Count 208 MPV 7.2 Sodium 135 L Potassium 4.6 D Chloride 101 Carbon Dioxide 26.5 Anion Gap 8 BUN 27 H Creatinine 0.66 Estimated GFR 88 L Random Glucose 125 H Calcium 9.2 Total Bilirubin 0.4 AST 17 ALT 23 Alkaline Phosphatase 68 Total Protein 6.5 D Albumin 3.2 L Microbiology 11/13/17 20:30 Urine - Clean Catch Urine Streptococcus pneumoniae Antigen ( M - Final Presumptive negative for streptococcus pneumoniae antigen, suggesting no current or recent infection. Infection due to Streptococcus pneumoniae cannot be ruled out since the antigen present in the sample may be below the detection limit of the test. 11/13/17 20:30 Urine - Clean Catch Urine Legionella Antigen - Final Presumptive negative for Legionella pneumophila serogroup 1 antigen in urine, suggesting no recent or recurrent infection. Infection due to Legionella cannot be ruled out since other serogroups and species may cause disease, antigen may not be present in urine in early infection, and the level of antigen present in the urine may be below the detection limit of the test. 11/13/17 15:15 Nasal Wash Influenza Types A,B Antigen - Final Negative for FLU A and B antigen Infection due to influenza A or B cannot be ruled out since the antigen present in the sample may be below the detection limit of the test. - Imaging Impressions Chest X-Ray 11/14/17 06:00 CONCLUSION: No significant change. Bilateral hazy airspace disease again noted no new consolidation. - Procedures NONE Assessment and Plan - Plan Neuro: Chronic pain Anxiety/depression -Use morphine for pain and anxiety, continue Xanax -Continue citalopram Resp: Acute hypoxemic respiratory failure-improving Interstitial lung disease/? secondary to Sjgren Acute COPD exacerbation End-stage lung disease -Pulmonary Dr. Shin is following -IV steroids Solu-Medrol 80 mg IV every 8 hours -Empiric antibiotic with cefepime -DuoNeb every 4 hours scheduled and as needed -Possible pulmonary edema on the CXR, continue to diurese -Interstitial changes are most likely secondary to ILD ADD MUCINEX IS CV: -Pulmonary infiltrates most likely secondary to interstitial lung disease -Continue IV diuretics to attempt to improve oxygenation -Discontinue IV Lasix, start p.o. Lasix 20 mg twice daily GI: -Cardiac diet, IV Protonix : -Strict intake output ID: -Continue empiric cefepime follow-up on cultures Endo: Hypothyroidism -Levothyroxine DVT GI prophylaxis -Teds SCDs -Subcu Lovenox -Pepcid Code Status: DNR Discussed Condition With: RN AND PT AND CM AND PALLIATIVE CARE Discharge Planning: HOME VS INPT HOSPICE AT ME
[2017-11-14] MEDS: guaiFENesin 600 MG ER Tablet PO SCH ×2 (13:59→21:04)
--- NOTE | 2017-11-14 14:33 | P.PNPAL ---
Reason for Visit Reason for visit: a. To assist with evaluation and management of symptoms including: Dyspnea, anxiety b. To assist medical decision maker(s) with: better understanding of current medical conditions; weighing benefits/burdens of medical treatment options; making medical treatment decisions. Subjective Subjective/Interval History: Patient seen for follow-up to evaluate symptom management of dyspnea and anxiety and assist with goals of medical treatment. Her dyspnea has improved overnight and she is now conversant without evidence of pursed lip breathing. She remains on O2 at 6 L nasal cannula saturating adequately. She still does become mildly dyspneic with extended conversation and requires rest periods. Her dyspnea is mild to moderate, improving with oxygen and rest, worsening with conversation and activity, continuous. Cultures for strep pneumoniae, Legionella and influenza are all presumptive negative. She remains anxious, primarily regarding her discharge plans. She sustained some significant stress and anxiety at home when she experienced severe dyspnea , felt that she was going to and was unable to elicit a response from [facility]. She is concerned for a recurrence of that. She does not wish to be at home, alone without reliable medical support. She wishes to have discharge plans arranged in advance of her discharge. Her anxiety is moderate, constant, exacerbating her dyspnea, worsening with thoughts of discharge without previously made plans for medical support, improving with PRN doses of Xanax. . Family/Friend Interactions: No family is at bedside. Palliative care has extended the offer to discuss questions and concerns with patient's healthcare surrogate, at the patient's request. . Advance Directives Health Care Surrogate Name and Number: Luiza Tyler [phone], Alt. Scotty Hutchins [phone] Documented care wishes:: Standard living will verbiage Objective Vital Signs: Vital Signs 11/13/17 20:00 11/13/17 20:35 11/14/17 01:27 Pulse Rate 89 76 57 L Respiratory Rate 18 Pulse Oximetry 96 11/14/17 05:27 11/14/17 07:46 11/14/17 13:31 Pulse Rate 70 82 67 Respiratory Rate 20 16 Pulse Oximetry 98 Intake & Output 11/13/17 11/14/17 11/14/17 18:59 06:59 18:59 Intake Total 340 / 340 500 / 500 Output Total 600 / 600 Balance 340 / 340 -100 / -100 Intake: IV 100 / 100 100 / 100 Maxipime Inj 2,000 MG In NS Inj 100 / 100 100 / 100 100 ML @ 200 mls/hr IV.SIG Q12H GENIA Rx#:[id number] Oral 400 / 400 Tube Feeding 240 / 240 Output: Urine 600 / 600 Other: # Voids 1 Date of Last Bowel Movement 11/12/17 11/12/17 11/13/17 Physical Exam: CONSTITUTIONAL/GENERAL: This is an adequately nourished patient, in no apparent distress. TUBES/LINES/DRAINS: PIV EYES: Pupils equal and round and reactive. Extraocular motions intact. No scleral icterus. No injection or drainage. Fundi not examined. ENT: Hearing grossly normal. Nose without bleeding or purulent drainage. NECK: Trachea midline. Supple, nontender. No palpable thyroid enlargement or nodularity. CARDIOVASCULAR: S1, S2, regular rhythm, tachycardic rate, without murmurs, gallops, or rubs. No JVD. Peripheral pulses symmetric. RESPIRATORY/CHEST: Symmetric, unlabored respirations. Clear, diminished to auscultation. Breath sounds equal bilaterally. Faint bibasilar crackles. No wheezes or rhonchi. GASTROINTESTINAL: Abdomen soft, non-tender, nondistended. No hepato-splenomegaly , or palpable masses. No guarding. Bowel sounds present. GENITOURINARY: Without palpable bladder distension. MUSCULOSKELETAL: Extremities without clubbing, cyanosis, or edema. No joint tenderness or effusion noted. No calf tenderness. No mottling or clubbing. NEUROLOGICAL: Awake and alert. Motor and sensory grossly within normal limits. Follows commands. Cognitively sharp. Moves all extremities. PSYCHIATRIC: mild anxiety. no apparent hallucinations or other psychotic thought process. . Diagnostic Tests Laboratory: Laboratory Results - last 72 hr 11/11/17 11/11/17 11/11/17 15:50 15:50 17:10 WBC 6.8 RBC 3.76 L Hgb 12.7 Hct 37.4 MCV 99.4 MCH 33.7 MCHC 33.9 RDW 15.8 Plt Count 168 MPV 7.1 Prelim Diff (Auto) Slide review pending Neut % (Auto) 74.5 H Lymph % (Auto) 14.7 Smyth % (Auto) 5.6 Eos % (Auto) 4.2 H Baso % (Auto) 1.0 Neut # (Auto) 5.1 Lymph # (Auto) 1.0 Smyth # (Auto) 0.4 Eos # (Auto) 0.3 Baso # (Auto) 0.1 WBC Differential . Diff Scan Auto diff confirmed Seg Neuts % (Manual) Band Neuts % (Manual) Lymphocytes % (Manual) Monocytes % (Manual) Myelocytes % (Man) Abs Neuts (Manual) Nucleated RBCs/100 WBC Differential Comment . Platelet Estimate Low L Platelet Morphology Normal Basophilic Stippling Spherocytes Ovalocytes Puncture Site Left radial Patient Temperature 98.6 O2 Saturation 94 ABG pH 7.49 H ABG pCO2 30 L ABG pO2 80 ABG HCO3 22 ABG O2 Content 17.6 ABG Base Excess -0.5 ABG Methemoglobin 0.5 Sidney Test Y Hemoglobin 13.3 Carboxyhemoglobin 1.9 O2 Delivery Device Bipap Vent Setting Ipap 15 epap 5 Inspired O2 50 Critical Value No Sodium 133 L Potassium 4.2 Chloride 96 L Carbon Dioxide 26.4 Anion Gap 11 BUN 15 Creatinine 0.64 Estimated GFR Greater than 89 Random Glucose 102 Calcium 8.0 L Magnesium Total Bilirubin 0.4 AST 50 H ALT 28 Alkaline Phosphatase 78 Total Protein 6.2 L Albumin 3.2 L Nasal Screen MRSA (PCR) 11/11/17 11/12/17 11/12/17 21:15 03:47 03:47 WBC 5.5 RBC 3.94 L Hgb 13.1 Hct 38.4 MCV 97.7 MCH 33.4 MCHC 34.2 RDW 16.1 Plt Count 168 MPV 7.4 Prelim Diff (Auto) Slide review pending Neut % (Auto) 91.6 H Lymph % (Auto) 6.4 L Smyth % (Auto) 1.6 Eos % (Auto) 0.1 Baso % (Auto) 0.3 Neut # (Auto) 5.0 Lymph # (Auto) 0.4 L Smyth # (Auto) 0.1 Eos # (Auto) 0.0 Baso # (Auto) 0.0 WBC Differential Manual diff final Diff Scan Seg Neuts % (Manual) 81 H Band Neuts % (Manual) 13 H Lymphocytes % (Manual) 3 L Monocytes % (Manual) 1 Myelocytes % (Man) 2 H Abs Neuts (Manual) 5.3 Nucleated RBCs/100 WBC 1 H Differential Comment . Platelet Estimate Normal Platelet Morphology Normal Basophilic Stippling Faint H Spherocytes 1+ H Ovalocytes 1+ H Puncture Site Patient Temperature O2 Saturation ABG pH ABG pCO2 ABG pO2 ABG HCO3 ABG O2 Content ABG Base Excess ABG Methemoglobin Sidney Test Hemoglobin Carboxyhemoglobin O2 Delivery Device Vent Setting Inspired O2 Critical Value Sodium 135 L Potassium 3.0 L D Chloride 100 Carbon Dioxide 28.9 Anion Gap 6 BUN 13 Creatinine 0.52 Estimated GFR Greater than 89 Random Glucose 183 H Calcium 8.0 L Magnesium Total Bilirubin 0.6 AST 41 H ALT 26 Alkaline Phosphatase 82 Total Protein 6.7 Albumin 3.2 L Nasal Screen MRSA (PCR) Not detected 11/13/17 11/13/17 11/14/17 05:07 05:07 07:15 WBC 10.2 9.1 RBC 4.04 3.78 L Hgb 13.7 12.7 Hct 40.1 37.4 MCV 99.3 98.8 MCH 34.0 33.5 MCHC 34.2 33.9 RDW 15.7 16.1 Plt Count 205 208 MPV 7.4 7.2 Prelim Diff (Auto) Neut % (Auto) Lymph % (Auto) Smyth % (Auto) Eos % (Auto) Baso % (Auto) Neut # (Auto) Lymph # (Auto) Smyth # (Auto) Eos # (Auto) Baso # (Auto) WBC Differential Diff Scan Seg Neuts % (Manual) Band Neuts % (Manual) Lymphocytes % (Manual) Monocytes % (Manual) Myelocytes % (Man) Abs Neuts (Manual) Nucleated RBCs/100 WBC Differential Comment Platelet Estimate Platelet Morphology Basophilic Stippling Spherocytes Ovalocytes Puncture Site Patient Temperature O2 Saturation ABG pH ABG pCO2 ABG pO2 ABG HCO3 ABG O2 Content ABG Base Excess ABG Methemoglobin Sidney Test Hemoglobin Carboxyhemoglobin O2 Delivery Device Vent Setting Inspired O2 Critical Value Sodium 137 Potassium 3.4 L Chloride 98 Carbon Dioxide 28.6 Anion Gap 10 BUN 19 H Creatinine 0.77 Estimated GFR 74 L Random Glucose 163 H Calcium 8.9 D Magnesium 2.5 Total Bilirubin 0.6 AST 25 ALT 27 Alkaline Phosphatase 79 Total Protein 7.3 D Albumin 3.5 Nasal Screen MRSA (PCR) 11/14/17 07:15 WBC RBC Hgb Hct MCV MCH MCHC RDW Plt Count MPV Prelim Diff (Auto) Neut % (Auto) Lymph % (Auto) Smyth % (Auto) Eos % (Auto) Baso % (Auto) Neut # (Auto) Lymph # (Auto) Smyth # (Auto) Eos # (Auto) Baso # (Auto) WBC Differential Diff Scan Seg Neuts % (Manual) Band Neuts % (Manual) Lymphocytes % (Manual) Monocytes % (Manual) Myelocytes % (Man) Abs Neuts (Manual) Nucleated RBCs/100 WBC Differential Comment Platelet Estimate Platelet Morphology Basophilic Stippling Spherocytes Ovalocytes Puncture Site Patient Temperature O2 Saturation ABG pH ABG pCO2 ABG pO2 ABG HCO3 ABG O2 Content ABG Base Excess ABG Methemoglobin Sidney Test Hemoglobin Carboxyhemoglobin O2 Delivery Device Vent Setting Inspired O2 Critical Value Sodium 135 L Potassium 4.6 D Chloride 101 Carbon Dioxide 26.5 Anion Gap 8 BUN 27 H Creatinine 0.66 Estimated GFR 88 L Random Glucose 125 H Calcium 9.2 Magnesium Total Bilirubin 0.4 AST 17 ALT 23 Alkaline Phosphatase 68 Total Protein 6.5 D Albumin 3.2 L Nasal Screen MRSA (PCR) Result Diagrams: 11/14/17 07:15 11/14/17 07:15 Microbiology: Microbiology 11/13/17 20:30 Streptococcus pneumoniae Antigen (M - Final Urine - Clean Catch Urine Presumptive negative for streptococcus pneumoniae antigen, suggesting no current or recent infection. Infection due to Streptococcus pneumoniae cannot be ruled out since the antigen present in the sample may be below the detection limit of the test. 11/13/17 20:30 Legionella Antigen - Final Urine - Clean Catch Urine Presumptive negative for Legionella pneumophila serogroup 1 antigen in urine, suggesting no recent or recurrent infection. Infection due to Legionella cannot be ruled out since other serogroups and species may cause disease, antigen may not be present in urine in early infection, and the level of antigen present in the urine may be below the detection limit of the test. 11/13/17 15:15 Influenza Types A,B Antigen - Final Nasal Wash Negative for FLU A and B antigen Infection due to influenza A or B cannot be ruled out since the antigen present in the sample may be below the detection limit of the test. Imaging: Chest X-Ray 11/11/17 15:35 CONCLUSION: Diffuse increased interstitial markings bilaterally with some airspace disease suggestive of pulmonary edema versus pneumonia. Chest X-Ray 11/12/17 06:00 CONCLUSION: No significant change Chest X-Ray 11/13/17 06:00 CONCLUSION: Stable chest x-ray with bilateral interstitial and airspace opacities, left greater than right. Chest X-Ray 11/14/17 06:00 CONCLUSION: No significant change. Bilateral hazy airspace disease again noted no new consolidation. Assessment and Plan Pertinent Non-Medical Issues: Psychosocial: She was born in [place] as the daughter of an [place] soldier and a [place] woman during World War II. At age 13 she moved to [place] and lived in [place] for the next 18 years. She then moved to [place] briefly and then resettled in [place] after her divorce in 1989. 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 She had no children. Spiritual: Spiritual in her own way but does not wish print line supervisor visits. Legal: Advanced directives completed and scanned into the medical record system. Ethical issues impacting care: None noted. . Important Contacts: [facility] Luiza Tyler [phone], Alt. Scotty Hutchins [phone] Prognosis: Her prognosis is guarded. 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 She is O2 dependent. She currently has suspected pneumonia which, given her poor reserve, places her at great risk of continued complications, decline and even . Code Status: No Code DNR Plan: PLAN: Legal decision maker: Patient is currently capacitated for decision-making, however has designated a healthcare surrogate, Luiza Tyler and an alternate, Scotty Hutchins. Goals: Comfort oriented CODE STATUS: DO NOT RESUSCITATE SYMPTOMS: * Dyspnea-she is dyspneic at rest, worsening with activity. This is multifactorial to include COPD as well as interstitial lung disease. She currently remains on 6 L nasal cannula and is saturating adequately. She is currently receiving DuoNeb every 4 hours and every 4 hours as needed, cefepime 2 g every 12 hours empirically, Brio Ellipta 1 puff daily, furosemide 20 mg twice daily and Solu-Medrol 80 mg IV every 6 hours. She also receives Oramorph 15 mg every 12 hours. * Anxiety-she feels this is related to her concern about being discharged home without adequate medical support, dyspnea and air hunger. She is receiving Xanax 0.5 mg every 6 hours as needed and Celexa 40 mg p.o. daily. At this time it appears adequate to maintain her symptoms. She has received 2 doses in the last 12 hours. She has requested to speak with [facility] for information only as she determines whether home health or hospice would be her better option to remain in her home. Palliative care will continue to follow the patient during hospital course as condition evolves, to assist patient/decision-maker with understanding of their medical conditions, weighing benefits/burdens of treatment options, for clarification of goals of treatment. Additionally will assist with any symptoms of palliative concern. . Attestation Attestation: To help prompt me to consider important information that might be impacting today's encounter and assessment, information from prior notes written by myself or my colleagues may have been "brought forward" into today's note. My signature on this note, however, is an attestation that I personally performed the exam, history, and/or decision-making noted today, and, unless otherwise indicated, the interactions with patient, family, and staff as well as the review of records all occurred today. I also attest that the listed assessment and stated plan reflect my best clinical judgment today based on the combination of historical information, prior notes, and today's exam/ interactions. When time spent is documented, it refers only to time spent today by the signer, or if indicated, combined time spent today by collaborating physician/nurse practitioner. .
[2017-11-14] MEDS: Enoxaparin Inj 40 MG/0.4 ML Syringe SQ SCH (17:53)
[2017-11-14] MEDS: predniSONE 10 MG Tablet PO SCH (21:03)
[2017-11-15] MEDS: Chlorhexidine Gluconate 2% 1 Pack (2 Cloths) TOPICAL SCH (04:22)
[2017-11-15 05:23] LABS: Baso % (Auto) 0.1 % (0.0-2.0); Eos % (Auto) 0.1 % (0.0-4.0); Lymph # (Auto) 0.4 th/mm3 (1.0-4.8); Lymph % (Auto) 6.2 % (9.0-44.0); Mean Corpuscular HGB Conc 34.3 % (32.0-36.0); Mean Corpuscular Hemoglobin 33.7 pg (27.0-34.0); Mean Corpuscular Volume 98.1 fL (80.0-100.0); Mean Platelet Volume 7.3 fL (7.0-11.0); Mono # (Auto) 0.4 th/mm3 (0.0-0.9); Mono % (Auto) 5.5 % (0.0-8.0); Neut % (Auto) 88.1 % (16.0-70.0); Platelet Count 199 th/mm3 (150-450); Red Blood Count 3.87 mil/mm3 (4.00-5.30); Red Cell Distribution Width 15.9 % (11.6-17.2); White Blood Count 6.8 th/mm3 (4.0-11.0)
[2017-11-15 05:42] LABS: Albumin 3.1 g/dL (3.4-5.0); Anion Gap 8 meq/L (5-15); Aspartate Aminotransferase 16 U/L (15-37); Blood Urea Nitrogen 24 mg/dL (7-18); Calcium 9.2 mg/dL (8.5-10.1); Carbon Dioxide 27.8 meq/L (21.0-32.0); Chloride 100 meq/L (98-107); Glomerular Filtration Rate 72 mL/min (>89); Glucose,Random 189 mg/dL (74-106); Magnesium 2.2 mg/dL (1.5-2.5); Potassium 4.7 meq/L (3.5-5.1); Sodium 136 meq/L (136-145)
[2017-11-15 05:43] LABS: Alanine Aminotransferase 24 U/L (10-53); Phosphorus 2.5 mg/dL (2.5-4.9)
[2017-11-15 05:52] LABS: Alkaline Phosphatase 65 U/L (45-117); Free T4 (Free Thyroxine) 0.84 ng/dL (0.76-1.46); Total Protein 6.4 g/dL (6.4-8.2)
[2017-11-15] MEDS: Levothyroxine 50 MCG Tablet PO SCH (06:13)
[2017-11-15 08:21] LABS: Lymphocytes 6 % (9-44); Monocytes 3 % (0-8); Myelocytes 4 % (0-0)
[2017-11-15 08:24] LABS: Platelet Estimate Normal (Normal); Platelet Morphology Normal (Normal)
[2017-11-15] MEDS: Ascorbic Acid 500 MG Tablet PO SCH ×2 (09:53→20:58)
[2017-11-15] MEDS: Calcium Carbonate 500 MG Tablet PO SCH ×2 (09:53→20:57)
[2017-11-15] MEDS: Sodium Chloride 0.9% 2 ML Flush BID IV.FLUSH SCH ×2 (09:54→20:58)
[2017-11-15] MEDS: Gabapentin 300 MG Capsule PO SCH (09:55)
[2017-11-15] MEDS: Morphine Sulfate 15 MG SR Tablet PO SCH ×2 (09:55→20:58)
[2017-11-15] MEDS: guaiFENesin 600 MG ER Tablet PO SCH ×2 (09:57→20:57)
[2017-11-15] MEDS: predniSONE 10 MG Tablet PO SCH ×2 (09:57→20:57)
[2017-11-15] MEDS: Furosemide 20 MG Tablet PO SCH (09:58)
[2017-11-15] MEDS: Celecoxib 100 MG Capsule PO SCH ×2 (09:58→20:57)
[2017-11-15] MEDS: Vitamin B Complex/Vitamin C Tablet PO SCH (09:58)
[2017-11-15] MEDS: Famotidine PF Inj 20 MG/2 ML Vial IV.PUSH SCH ×2 (09:59→20:58)
[2017-11-15] MEDS: ALPRAZolam 0.5 MG Tablet PO PRN ×2 (11:29→18:10)
--- NOTE | 2017-11-15 11:37 | P.PNIM ---
Subjective Interval history: 72-year-old female with end-stage COPD and interstitial lung disease was brought in by paramedics in profound respiratory distress. At home she wears 4 L of nasal cannula but with any activity she puts it up anywhere from 8-10 L. Paramedics gave her nebulizer route and IV steroids. She denies chest pain or productive cough or fever. Paramedics report that she is a DNR patient and has enrolled in [facility] hospice. No further history is obtainable due to patient respiratory distress and facemask BiPAP. SUBJ 11/12: Remains on BiPAP quite tachypneic, receiving IV steroids breathing treatments antibiotics and Lasix. Chest x-ray shows bilateral significant interstitial infiltrates. I have discussed her case with Dr. Daniel box stapler yesterday. He has reported previous response to high-dose IV steroids. Continue Solu-Medrol 80 mg every 6 hours 11/13: Breathing more comfortably today currently on 6 L nasal cannula. Mild shortness of breath which is present at baseline. Subjectively patient feels improved. CODE STATUS was changed to DNR by Dr. Daniel after discussion with the patient 11-14 TRANSFERRED TO OUR SERVICE TODAY DW RN AND PT AND CM PATIENT HAS BASELINE SOB IS A DNR SLOW IMPROVEMENT NEEDS TO DISCUSS WITH PALLIATIVE CARE MAY NEED TO SWITCH HOSPICE AT ME TO [facility] OF [facility] VERY ANXIOUS ABOUT SITUATION THAT BROUGHT HER TO THE HOSPITAL PT AND OT INCREASE ACTIVITY HAS COPD AND INTERSTITIAL LUNG DISEASE THAT BOTH APPEAR ENDSTAGE 11-15 HAVING ANXIETY ATTACK TODAY DW RN AND PT AND CM AND PALLIATIVE CARE JORDY DANIEL YESTERDAY HOPEFULLY HOME WITH [facility] IN NEXT 24 TO 48 HOURS Physical Exam Vital signs: Vital Signs 11/14/17 12:00 11/14/17 13:31 11/14/17 16:00 Temperature 98.0 F Pulse Rate 70 67 94 H Respiratory Rate 21 16 Blood Pressure 121/75 Pulse Oximetry 97 11/14/17 16:22 11/14/17 20:00 11/14/17 20:06 Temperature 97.7 F Pulse Rate 67 72 71 Respiratory Rate 20 19 Blood Pressure 112/71 Pulse Oximetry 97 92 L 11/14/17 20:35 11/14/17 23:35 11/15/17 00:00 Temperature 97.6 F 97.3 F L Pulse Rate 73 91 H 72 Respiratory Rate 18 17 20 Blood Pressure 123/82 123/67 Pulse Oximetry 98 94 L 11/15/17 03:03 11/15/17 04:00 11/15/17 07:38 Temperature 97.7 F Pulse Rate 89 84 70 Respiratory Rate 17 18 16 Blood Pressure 128/68 Pulse Oximetry 98 98 11/15/17 08:00 Temperature 97.6 F Pulse Rate 77 Respiratory Rate 19 Blood Pressure 137/88 Pulse Oximetry 100 Intake & Output 11/14/17 11/15/17 11/15/17 18:59 06:59 18:59 Intake Total 820 / 820 480 / 480 Balance 820 / 820 480 / 480 Intake: IV 100 / 100 100 / 100 Maxipime Inj 2,000 MG In NS Inj 100 / 100 100 / 100 100 ML @ 200 mls/hr IV.SIG Q12H [facility] Rx#:[id number] Oral 720 / 720 380 / 380 Other: # Voids 2 Date of Last Bowel Movement 11/13/17 Narrative: GENERAL: AWAKE ALERT AND ORIENTED X3 -SOB ON ANY EXERTION-QUITE ANXIOUS-SPEAKS IN ONLY A FEW WORDS- VERY ANXIOUS STILL SKIN: Warm and dry. HEAD: Atraumatic. Normocephalic. EYES: Pupils equal and round. No scleral icterus. No injection or drainage. ENT: No nasal bleeding or discharge. Mucous membranes pink and moist. NECK: Trachea midline. No JVD. CARDIOVASCULAR: Regular rate and rhythm. S1, S2 NO S3 OR S4 RESPIRATORY: No accessory muscle use. COARSE BS BL FEW RHONCHI. Breath sounds equal bilaterally. GASTROINTESTINAL: Abdomen soft, non-tender, nondistended. Hepatic and splenic margins not palpable. MUSCULOSKELETAL: Extremities without clubbing, cyanosis, or edema. No obvious deformities. NEUROLOGICAL: Awake and alert. No obvious cranial nerve deficits. Motor grossly within normal limits. Five out of 5 muscle strength in the arms and legs. Normal speech. PSYCHIATRIC: Appropriate mood and affect; insight and judgment normal. - Urinary Catheter Management Indwelling Urethral Catheter Cath placed during this visit: yes, but has since been removed by the nurse Reason for continuing: Continue criteria not met Insertion date: 11/11/17 Insertion time: 17:55 Removal date: 11/12/17 Removal time: 10:00 Results - Labs CBC & Chem 7: 11/15/17 04:35 11/15/17 04:35 Laboratory Results - last 24 hr 11/15/17 11/15/17 04:35 04:35 WBC 6.8 RBC 3.87 L Hgb 13.0 Hct 38.0 MCV 98.1 MCH 33.7 MCHC 34.3 RDW 15.9 Plt Count 199 MPV 7.3 Prelim Diff (Auto) Slide review pending Neut % (Auto) 88.1 H Lymph % (Auto) 6.2 L Daniels % (Auto) 5.5 Eos % (Auto) 0.1 Baso % (Auto) 0.1 Neut # (Auto) 6.0 Lymph # (Auto) 0.4 L Daniels # (Auto) 0.4 Eos # (Auto) 0.0 Baso # (Auto) 0.0 WBC Differential Manual diff final Seg Neuts % (Manual) 84 H Band Neuts % (Manual) 3 Lymphocytes % (Manual) 6 L Monocytes % (Manual) 3 Myelocytes % (Man) 4 H Abs Neuts (Manual) 6.2 Differential Comment . Platelet Estimate Normal Platelet Morphology Normal Sodium 136 Potassium 4.7 Chloride 100 Carbon Dioxide 27.8 Anion Gap 8 BUN 24 H Creatinine 0.79 Estimated GFR 72 L Random Glucose 189 H Calcium 9.2 Phosphorus 2.5 Magnesium 2.2 Total Bilirubin 0.4 AST 16 ALT 24 Alkaline Phosphatase 65 Total Protein 6.4 Albumin 3.1 L TSH 1.260 Free T4 0.84 Microbiology 11/13/17 20:30 Urine - Clean Catch Urine Streptococcus pneumoniae Antigen ( M - Final Presumptive negative for streptococcus pneumoniae antigen, suggesting no current or recent infection. Infection due to Streptococcus pneumoniae cannot be ruled out since the antigen present in the sample may be below the detection limit of the test. 11/13/17 20:30 Urine - Clean Catch Urine Legionella Antigen - Final Presumptive negative for Legionella pneumophila serogroup 1 antigen in urine, suggesting no recent or recurrent infection. Infection due to Legionella cannot be ruled out since other serogroups and species may cause disease, antigen may not be present in urine in early infection, and the level of antigen present in the urine may be below the detection limit of the test. - Imaging Chest X-Ray 11/11/17 15:35 CONCLUSION: Diffuse increased interstitial markings bilaterally with some airspace disease suggestive of pulmonary edema versus pneumonia. Chest X-Ray 11/12/17 06:00 CONCLUSION: No significant change Chest X-Ray 11/13/17 06:00 CONCLUSION: Stable chest x-ray with bilateral interstitial and airspace opacities, left greater than right. Chest X-Ray 11/14/17 06:00 CONCLUSION: No significant change. Bilateral hazy airspace disease again noted no new consolidation. - Procedures NONE Assessment and Plan - Plan Neuro: Chronic pain Anxiety/depression -Use morphine for pain and anxiety, continue Xanax -Continue citalopram Resp: Acute hypoxemic respiratory failure-improving Interstitial lung disease/? secondary to Sjgren Acute COPD exacerbation End-stage lung disease -Pulmonary Dr. Daniel is following -IV steroids Solu-Medrol 80 mg IV every 8 hours -Empiric antibiotic with cefepime -DuoNeb every 4 hours scheduled and as needed -Possible pulmonary edema on the CXR, continue to diurese -Interstitial changes are most likely secondary to ILD ADD MUCINEX IS CV: -Pulmonary infiltrates most likely secondary to interstitial lung disease -Continue IV diuretics to attempt to improve oxygenation -Discontinue IV Lasix, start p.o. Lasix 20 mg twice daily GI: -Cardiac diet, IV Protonix : -Strict intake output ID: -Continue empiric cefepime follow-up on cultures Endo: Hypothyroidism -Levothyroxine DVT GI prophylaxis -Teds SCDs -Subcu Lovenox -Pepcid Code Status: LIMITED DNR Discussed Condition With: RN AND PT AND CM AND PALLIATIVE CARE Discharge Planning: HOME WITH C AT ME
--- NOTE | 2017-11-15 11:39 | P.DCO ---
- Physical Therapy Order: Evaluate and treat, Improve ambulation, Strength and gait training - Occupational Therapy Order: Evaluate and treat, Improve ADL, Gross motor coordination, Fine motor coordination - Home Health Nursing Order: Medical education, Signs/symptoms of disease process, Medication education-adverse effect, Telehealth - Home Health Aide Order: To assist in: Bathing and personal care, bank appraiser and meal prep - Case Management Consult Yes - Certification I have seen patient Rosy Shukla on 11/15/17. My clinical findings support the need for the requested home health care services because: Limited mobility due to disease progression, Patient has SOB, Deconditioned with increased weakness, Limited ability to care for self I certify that my clinical findings support that this patient is homebound because: Hx COPD - exertion dyspnea/weakness, Unsteady gait/balance
[2017-11-15 16:38] LABS: Hemoglobin A1c 5.3 % (4.3-6.0)
--- NOTE | 2017-11-15 16:50 | P.PNPAL ---
Reason for Visit Reason for visit: a. To assist with evaluation and management of symptoms including: Dyspnea, anxiety b. To assist medical decision maker(s) with: better understanding of current medical conditions; weighing benefits/burdens of medical treatment options; making medical treatment decisions. Subjective Subjective/Interval History: Patient seen for follow-up to evaluate symptom management of dyspnea and anxiety and assist with goals of medical treatment. Patient is visibly dyspneic upon entering the room. She is out of bed, exhibiting pursed lipped breathing, moderate to severe, constant, occurring with worsening and anxiety. She remains on nasal cannula at 6 L/min. Patient is crying and visibly anxious. She states that she had asked for Xanax sometime ago which had not been administered and her anxiety was exacerbating her dyspnea, making her feel as though she could not breathe. As she was in extreme distress, I offered to find the nurse and check on the status of her medication. Evaluation revealed that the nurse was currently in a huddle meeting, delaying the delivery of the medication. As the meeting ended, I did update the nurse as to the patient's agitated state and medication was provided quickly. Her anxiety is severe, intermittent, worsened by dyspnea, improved by Xanax, presenting as air hunger. . Family/Friend Interactions: No family is at bedside today. I did hold an extended conversation with the patient, however, regarding discharge plans and resuscitation status wishes. She had initially been admitted as a DO NOT RESUSCITATE, but after a conversation with her nurse last night felt that she did wish to undergo CPR and be resuscitated from a cardiac standpoint. When this was explained more completely to her, she stated she absolutely did not wish to be resuscitated, have CPR or undergo intubation or shock. She states that her goal is to be comfortable. She wishes to have her symptoms managed and not feel short of breath. We reviewed home health versus hospice to fulfill her wishes and after extensive discussion she stated she felt that hospice would be more appropriate for her goals as they would keep her comfortable, in her home, offer her the option of care center admission for an acute exacerbation and allow her to pass in peace without feeling like she was gasping for air or strangling. She felt that returning to the hospital would not serve her goals due to the loss of control she experiences in the hospital, the discomfort of the surroundings and the aggressive nature of the care offered. She felt as long as she could receive oxygen, medications to ease her work of breathing and anxiety and antibiotics if needed, she would benefit from the 24/7 support provided by hospice which would allow her to stay in her home as long as possible. . Advance Directives Living Will: Copy in medical record Health Care Surrogate: Copy in medical record Durable Power of Maturity Checker: Completed, but not made available Health Care Surrogate Name and Number: Luiza Tyler [phone], Alt. Scotty Hutchins [phone] Documented care wishes:: Standard living will verbiage Objective Vital Signs: Vital Signs 11/14/17 16:22 11/14/17 20:00 11/14/17 20:06 Temperature 97.7 F Pulse Rate 67 72 71 Respiratory Rate 20 19 Blood Pressure 112/71 Pulse Oximetry 97 92 L 11/14/17 20:35 11/14/17 23:35 11/15/17 00:00 Temperature 97.6 F 97.3 F L Pulse Rate 73 91 H 72 Respiratory Rate 18 17 20 Blood Pressure 123/82 123/67 Pulse Oximetry 98 94 L 11/15/17 03:03 11/15/17 04:00 11/15/17 07:38 Temperature 97.7 F Pulse Rate 89 84 70 Respiratory Rate 17 18 16 Blood Pressure 128/68 Pulse Oximetry 98 98 11/15/17 08:00 11/15/17 12:00 11/15/17 14:07 Temperature 97.6 F 97.5 F L Pulse Rate 77 101 H 95 H Respiratory Rate 19 18 16 Blood Pressure 137/88 147/81 H Pulse Oximetry 100 96 Intake & Output 11/14/17 11/15/17 11/15/17 18:59 06:59 18:59 Intake Total 820 / 820 480 / 480 Balance 820 / 820 480 / 480 Intake: IV 100 / 100 100 / 100 Maxipime Inj 2,000 MG In NS Inj 100 / 100 100 / 100 100 ML @ 200 mls/hr IV.SIG Q12H [facility] Rx#:[id number] Oral 720 / 720 380 / 380 Other: # Voids 2 Date of Last Bowel Movement 11/13/17 11/13/17 Physical Exam: CONSTITUTIONAL/GENERAL: This is an adequately nourished patient, in moderate distress. TUBES/LINES/DRAINS: PIV EYES: Pupils equal and round and reactive. Extraocular motions intact. No scleral icterus. No injection or drainage. Fundi not examined. ENT: Hearing grossly normal. Nose without bleeding or purulent drainage. NECK: Trachea midline. Supple, nontender. No palpable thyroid enlargement or nodularity. CARDIOVASCULAR: S1, S2, regular rhythm, tachycardic rate, without murmurs, gallops, or rubs. No JVD. Peripheral pulses symmetric. RESPIRATORY/CHEST: Symmetric, mildly labored respirations. Coarse breath sounds , diminished to auscultation. GASTROINTESTINAL: Abdomen soft, non-tender, nondistended. No hepato-splenomegaly , or palpable masses. No guarding. Bowel sounds present. GENITOURINARY: Without palpable bladder distension. MUSCULOSKELETAL: Extremities without clubbing, cyanosis, or edema. No joint tenderness or effusion noted. No calf tenderness. No mottling or clubbing. NEUROLOGICAL: Awake and alert. Motor and sensory grossly within normal limits. Follows commands. Cognitively sharp. Moves all extremities. PSYCHIATRIC: Moderately severe anxiety. no apparent hallucinations or other psychotic thought process. . Diagnostic Tests Laboratory: Laboratory Results - last 72 hr 11/13/17 11/13/17 11/14/17 05:07 05:07 07:15 WBC 10.2 9.1 RBC 4.04 3.78 L Hgb 13.7 12.7 Hct 40.1 37.4 MCV 99.3 98.8 MCH 34.0 33.5 MCHC 34.2 33.9 RDW 15.7 16.1 Plt Count 205 208 MPV 7.4 7.2 Prelim Diff (Auto) Neut % (Auto) Lymph % (Auto) [place] % (Auto) Eos % (Auto) Baso % (Auto) Neut # (Auto) Lymph # (Auto) [place] # (Auto) Eos # (Auto) Baso # (Auto) WBC Differential Seg Neuts % (Manual) Band Neuts % (Manual) Lymphocytes % (Manual) Monocytes % (Manual) Myelocytes % (Man) Abs Neuts (Manual) Differential Comment Platelet Estimate Platelet Morphology Sodium 137 Potassium 3.4 L Chloride 98 Carbon Dioxide 28.6 Anion Gap 10 BUN 19 H Creatinine 0.77 Estimated GFR 74 L Random Glucose 163 H Calcium 8.9 D Phosphorus Magnesium 2.5 Total Bilirubin 0.6 AST 25 ALT 27 Alkaline Phosphatase 79 Total Protein 7.3 D Albumin 3.5 TSH Free T4 11/14/17 11/15/17 11/15/17 07:15 04:35 04:35 WBC 6.8 RBC 3.87 L Hgb 13.0 Hct 38.0 MCV 98.1 MCH 33.7 MCHC 34.3 RDW 15.9 Plt Count 199 MPV 7.3 Prelim Diff (Auto) Slide review pending Neut % (Auto) 88.1 H Lymph % (Auto) 6.2 L [place] % (Auto) 5.5 Eos % (Auto) 0.1 Baso % (Auto) 0.1 Neut # (Auto) 6.0 Lymph # (Auto) 0.4 L [place] # (Auto) 0.4 Eos # (Auto) 0.0 Baso # (Auto) 0.0 WBC Differential Manual diff final Seg Neuts % (Manual) 84 H Band Neuts % (Manual) 3 Lymphocytes % (Manual) 6 L Monocytes % (Manual) 3 Myelocytes % (Man) 4 H Abs Neuts (Manual) 6.2 Differential Comment . Platelet Estimate Normal Platelet Morphology Normal Sodium 135 L 136 Potassium 4.6 D 4.7 Chloride 101 100 Carbon Dioxide 26.5 27.8 Anion Gap 8 8 BUN 27 H 24 H Creatinine 0.66 0.79 Estimated GFR 88 L 72 L Random Glucose 125 H 189 H Calcium 9.2 9.2 Phosphorus 2.5 Magnesium 2.2 Total Bilirubin 0.4 0.4 AST 17 16 ALT 23 24 Alkaline Phosphatase 68 65 Total Protein 6.5 D 6.4 Albumin 3.2 L 3.1 L TSH 1.260 Free T4 0.84 Result Diagrams: 11/15/17 04:35 11/15/17 04:35 Microbiology: Microbiology 11/13/17 20:30 Streptococcus pneumoniae Antigen (M - Final Urine - Clean Catch Urine Presumptive negative for streptococcus pneumoniae antigen, suggesting no current or recent infection. Infection due to Streptococcus pneumoniae cannot be ruled out since the antigen present in the sample may be below the detection limit of the test. 11/13/17 20:30 Legionella Antigen - Final Urine - Clean Catch Urine Presumptive negative for Legionella pneumophila serogroup 1 antigen in urine, suggesting no recent or recurrent infection. Infection due to Legionella cannot be ruled out since other serogroups and species may cause disease, antigen may not be present in urine in early infection, and the level of antigen present in the urine may be below the detection limit of the test. 11/13/17 15:15 Influenza Types A,B Antigen - Final Nasal Wash Negative for FLU A and B antigen Infection due to influenza A or B cannot be ruled out since the antigen present in the sample may be below the detection limit of the test. Assessment and Plan Pertinent Non-Medical Issues: Psychosocial: She was born in [place] as the daughter of an [place] soldier and a [place] woman during World War II. At age 13 she moved to [place] and lived in [place] for the next 18 years. She then moved to [place] briefly and then resettled in [place] after her divorce in 1989. 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 She had no children. Spiritual: Spiritual in her own way but does not wish reimbursement spec visits. Legal: Advanced directives completed and scanned into the medical record system. Ethical issues impacting care: None noted. . Important Contacts: [facility] Luiza Tyler [phone], Alt. Scotty Hutchins [phone] Prognosis: Her prognosis is guarded. 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 She is O2 dependent. She currently has suspected pneumonia which, given her poor reserve, places her at great risk of continued complications, decline and even . Code Status: No Code DNR Plan: PLAN: Legal decision maker: Patient is currently capacitated for decision-making, however has designated a healthcare surrogate, Luiza Tyler and an alternate, Scotty Hutchins. Goals: Comfort oriented CODE STATUS: DO NOT RESUSCITATE SYMPTOMS: * Dyspnea-she is dyspneic at rest, worsening with activity. This is multifactorial to include COPD as well as interstitial lung disease. She currently remains on 6 L nasal cannula and is saturating adequately. She is currently receiving DuoNeb every 4 hours and every 4 hours as needed, cefepime 2 g every 12 hours empirically, Brio Ellipta 1 puff daily, furosemide 20 mg twice daily and prednisone 30 mg twice daily. She also receives Oramorph 15 mg every 12 hours. Dyspnea is worse this morning, exacerbated by anxiety. Could consider low-dose, scheduled Xanax 0.25 mg twice daily with additional as needed dosing for breakthrough. * Anxiety-she feels this is related to her concern about being discharged home without adequate medical support, dyspnea and air hunger. She is receiving Xanax 0.5 mg every 6 hours as needed and Celexa 40 mg p.o. daily. At this time it appears adequate to maintain her symptoms. She receives an average of 1-2 doses of Xanax 0.5 mg daily. Her anxiety is severe today, worsened by increasing dyspnea and a delay in receiving Xanax. Again, would consider scheduling Xanax 0.25 mg twice daily with additional as needed dosing for breakthrough. Palliative care will continue to follow the patient during hospital course as condition evolves, to assist patient/decision-maker with understanding of their medical conditions, weighing benefits/burdens of treatment options, for clarification of goals of treatment. Additionally will assist with any symptoms of palliative concern. . Attestation Attestation: To help prompt me to consider important information that might be impacting today's encounter and assessment, information from prior notes written by myself or my colleagues may have been "brought forward" into today's note. My signature on this note, however, is an attestation that I personally performed the exam, history, and/or decision-making noted today, and, unless otherwise indicated, the interactions with patient, family, and staff as well as the review of records all occurred today. I also attest that the listed assessment and stated plan reflect my best clinical judgment today based on the combination of historical information, prior notes, and today's exam/ interactions. When time spent is documented, it refers only to time spent today by the signer, or if indicated, combined time spent today by collaborating physician/nurse practitioner. .
[2017-11-15] MEDS: Enoxaparin Inj 40 MG/0.4 ML Syringe SQ SCH (18:11)
[2017-11-16] MEDS: Chlorhexidine Gluconate 2% 1 Pack (2 Cloths) TOPICAL SCH (03:13)
[2017-11-16] MEDS: Levothyroxine 50 MCG Tablet PO SCH (05:03)
[2017-11-16] MEDS: Morphine Sulfate 15 MG SR Tablet PO SCH (08:27)
[2017-11-16] MEDS: Gabapentin 300 MG Capsule PO SCH (08:28)
[2017-11-16] MEDS: Sodium Chloride 0.9% 2 ML Flush BID IV.FLUSH SCH (08:29)
[2017-11-16] MEDS: predniSONE 10 MG Tablet PO SCH (08:29)
[2017-11-16] MEDS: guaiFENesin 600 MG ER Tablet PO SCH (08:29)
[2017-11-16] MEDS: Ascorbic Acid 500 MG Tablet PO SCH (08:31)
[2017-11-16] MEDS: Furosemide 20 MG Tablet PO SCH (08:31)
[2017-11-16] MEDS: Calcium Carbonate 500 MG Tablet PO SCH (08:31)
[2017-11-16] MEDS: Vitamin B Complex/Vitamin C Tablet PO SCH (08:32)
[2017-11-16] MEDS: Celecoxib 100 MG Capsule PO SCH (08:32)
[2017-11-16] MEDS: ALPRAZolam 0.5 MG Tablet PO PRN (08:33)
[2017-11-16] MEDS: Famotidine PF Inj 20 MG/2 ML Vial IV.PUSH SCH (08:35)
[2017-11-16 08:41] LABS: Baso % (Auto) 0.7 % (0.0-2.0); Eos % (Auto) 0.3 % (0.0-4.0); Hematocrit 39.9 % (35.0-46.0); Hemoglobin 13.7 gm/dL (11.6-15.3); Lymph # (Auto) 0.6 th/mm3 (1.0-4.8); Lymph % (Auto) 8.6 % (9.0-44.0); Mean Corpuscular HGB Conc 34.4 % (32.0-36.0); Mean Corpuscular Hemoglobin 33.7 pg (27.0-34.0); Mean Corpuscular Volume 97.9 fL (80.0-100.0); Mean Platelet Volume 7.6 fL (7.0-11.0); Mono # (Auto) 0.5 th/mm3 (0.0-0.9); Mono % (Auto) 7.2 % (0.0-8.0); Neut % (Auto) 83.2 % (16.0-70.0); Platelet Count 198 th/mm3 (150-450); Red Blood Count 4.07 mil/mm3 (4.00-5.30); Red Cell Distribution Width 16.1 % (11.6-17.2); White Blood Count 7.3 th/mm3 (4.0-11.0)
[2017-11-16 09:17] LABS: Albumin 3.5 g/dL (3.4-5.0); Anion Gap 8 meq/L (5-15); Aspartate Aminotransferase 24 U/L (15-37); Blood Urea Nitrogen 25 mg/dL (7-18); Calcium 9.6 mg/dL (8.5-10.1); Chloride 97 meq/L (98-107); Glomerular Filtration Rate Greater Than 89 mL/min (>89); Glucose,Random 138 mg/dL (74-106); Magnesium 2.3 mg/dL (1.5-2.5); Potassium 4.5 meq/L (3.5-5.1); Sodium 133 meq/L (136-145)
[2017-11-16 09:22] LABS: Alanine Aminotransferase 28 U/L (10-53); Alkaline Phosphatase 68 U/L (45-117); Phosphorus 3.2 mg/dL (2.5-4.9); Total Protein 6.9 g/dL (6.4-8.2)
[2017-11-16 09:44] LABS: Lymphocytes 7 % (9-44); Metamyelocytes 3 % (0-1); Monocytes 6 % (0-8); Myelocytes 2 % (0-0); Platelet Estimate Normal (Normal); Platelet Morphology Normal (Normal); RBC Morphology Normal (Normal); Toxic Granulation 2+
--- NOTE | 2017-11-16 11:23 | P.DCO ---
- Physical Therapy Order: Evaluate and treat, Improve ambulation, Strength and gait training - Occupational Therapy Order: Evaluate and treat, Improve ADL, Gross motor coordination, Fine motor coordination - Home Health Nursing Order: Medical education, Signs/symptoms of disease process, Oxygen administration education, Nursing assessment with vital signs - Home Health Aide Order: To assist in: Bathing and personal care, window shade ring sewer and meal prep - High School Teacher Order: To evaluate: Living conditions/environment, Support services - Case Management Consult No - Certification I have seen patient Rosy Shukla on 11/16/17. My clinical findings support the need for the requested home health care services because: Limited mobility due to disease progression, Patient has SOB, Deconditioned with increased weakness, Limited ability to care for self I certify that my clinical findings support that this patient is homebound because: Hx COPD - exertion dyspnea/weakness, Unsteady gait/balance
--- NOTE | 2017-11-16 11:25 | P.PNIM ---
Subjective Interval history: 72-year-old female with end-stage COPD and interstitial lung disease was brought in by paramedics in profound respiratory distress. At home she wears 4 L of nasal cannula but with any activity she puts it up anywhere from 8-10 L. Paramedics gave her nebulizer route and IV steroids. She denies chest pain or productive cough or fever. Paramedics report that she is a DNR patient and has enrolled in [facility] hosp[facility]. No further history is obtainable due to patient respiratory distress and facemask BiPAP. SUBJ 11/12: Remains on BiPAP quite tachypneic, receiving IV steroids breathing treatments antibiotics and Lasix. Chest x-ray shows bilateral significant interstitial infiltrates. I have discussed her case with Dr. Daniel fleet dispatch manager yesterday. He has reported previous response to high-dose IV steroids. Continue Solu-Medrol 80 mg every 6 hours 11/13: Breathing more comfortably today currently on 6 L nasal cannula. Mild shortness of breath which is present at baseline. Subjectively patient feels improved. CODE STATUS was changed to DNR by Dr. Daniel after discussion with the patient 11-14 TRANSFERRED TO OUR SERVICE TODAY DW RN AND PT AND CM PATIENT HAS BASELINE SOB IS A DNR SLOW IMPROVEMENT NEEDS TO DISCUSS WITH PALLIATIVE CARE MAY NEED TO SWITCH HOSPICE AT [place] TO [place] INSTEAD OF [facility] VERY ANXIOUS ABOUT SITUATION THAT BROUGHT HER TO THE HOSPITAL PT AND OT INCREASE ACTIVITY HAS COPD AND INTERSTITIAL LUNG DISEASE THAT BOTH APPEAR ENDSTAGE 11-15 HAVING ANXIETY ATTACK TODAY DW RN AND PT AND CM AND PALLIATIVE CARE JORDY DANIEL YESTERDAY HOPEFULLY HOME WITH [facility] IN NEXT 24 TO 48 HOURS 11-16 WANTS TO GO HOME NEEDS NEW WALK TEST DC TO HOME WITH [facility]OSPICE TO FOLLOW Physical Exam Vital signs: Vital Signs 11/15/17 12:00 11/15/17 14:07 11/15/17 16:13 Temperature 97.5 F L 97.8 F Pulse Rate 101 H 95 H 95 H Respiratory Rate 18 16 20 Blood Pressure 147/81 H 126/70 Pulse Oximetry 96 95 11/15/17 17:00 11/15/17 19:29 11/15/17 19:48 Temperature 97.6 F Pulse Rate 96 H 90 84 Respiratory Rate 18 20 Blood Pressure 118/61 Pulse Oximetry 93 L 97 11/15/17 20:00 11/15/17 23:18 11/16/17 00:00 Temperature 97.6 F 97.4 F L Pulse Rate 95 H 65 95 H Respiratory Rate 18 18 Blood Pressure 119/72 123/68 Pulse Oximetry 98 99 11/16/17 00:33 11/16/17 04:00 11/16/17 04:26 Temperature Pulse Rate 81 88 93 H Respiratory Rate 18 18 Blood Pressure Pulse Oximetry 11/16/17 07:37 11/16/17 08:00 11/16/17 08:51 Temperature 97.5 F L Pulse Rate 80 74 83 Respiratory Rate 16 18 Blood Pressure 112/77 Pulse Oximetry 98 99 Intake & Output 11/15/17 11/16/17 11/16/17 18:59 06:59 18:59 Intake Total 1080 / 1080 800 / 800 Balance 1080 / 1080 800 / 800 Weight 57.8 kg Intake: IV 200 / 200 Maxipime Inj 2,000 MG In NS Inj 200 / 200 100 ML @ 200 mls/hr IV.SIG Q12H GENIA Rx#:[id number] Oral 1080 / 1080 600 / 600 Other: # Voids 15 8 Date of Last Bowel Movement 11/13/17 # Bowel Movements 0 Narrative: GENERAL: AWAKE ALERT AND ORIENTED X3 -SOB ON ANY EXERTION-QUITE ANXIOUS-SPEAKS IN ONLY A FEW WORDS- VERY ANXIOUS STILL SKIN: Warm and dry. HEAD: Atraumatic. Normocephalic. EYES: Pupils equal and round. No scleral icterus. No injection or drainage. ENT: No nasal bleeding or discharge. Mucous membranes pink and moist. NECK: Trachea midline. No JVD. CARDIOVASCULAR: Regular rate and rhythm. S1, S2 NO S3 OR S4 RESPIRATORY: No accessory muscle use. COARSE BS BL FEW RHONCHI. Breath sounds equal bilaterally. GASTROINTESTINAL: Abdomen soft, non-tender, nondistended. Hepatic and splenic margins not palpable. MUSCULOSKELETAL: Extremities without clubbing, cyanosis, or edema. No obvious deformities. NEUROLOGICAL: Awake and alert. No obvious cranial nerve deficits. Motor grossly within normal limits. Five out of 5 muscle strength in the arms and legs. Normal speech. PSYCHIATRIC: Appropriate mood and affect; insight and judgment normal. - Urinary Catheter Management Indwelling Urethral Catheter Cath placed during this visit: yes, but has since been removed by the nurse Reason for continuing: Continue criteria not met Insertion date: 11/11/17 Insertion time: 17:55 Removal date: 11/12/17 Removal time: 10:00 Results - Labs CBC & Chem 7: 11/16/17 06:14 11/16/17 06:14 Laboratory Results - last 24 hr 11/15/17 11/16/17 11/16/17 04:35 06:14 06:14 WBC 7.3 RBC 4.07 Hgb 13.7 Hct 39.9 MCV 97.9 MCH 33.7 MCHC 34.4 RDW 16.1 Plt Count 198 MPV 7.6 Prelim Diff (Auto) Slide review pending Neut % (Auto) 83.2 H Lymph % (Auto) 8.6 L [place] % (Auto) 7.2 Eos % (Auto) 0.3 Baso % (Auto) 0.7 Neut # (Auto) 6.0 Lymph # (Auto) 0.6 L [place] # (Auto) 0.5 Eos # (Auto) 0.0 Baso # (Auto) 0.0 WBC Differential Manual diff final Seg Neuts % (Manual) 74 H Band Neuts % (Manual) 8 H Lymphocytes % (Manual) 7 L Monocytes % (Manual) 6 Metamyelocytes % (Man) 3 H Myelocytes % (Man) 2 H Abs Neuts (Manual) 6.4 Differential Comment . Toxic Granulation 2+ H Platelet Estimate Normal Platelet Morphology Normal RBC Morphology Normal Sodium 133 L Potassium 4.5 Chloride 97 L Carbon Dioxide 28.0 Anion Gap 8 BUN 25 H Creatinine 0.65 Estimated GFR Greater than 89 Random Glucose 138 H Hemoglobin A1c 5.3 Calcium 9.6 Phosphorus 3.2 Magnesium 2.3 Total Bilirubin 0.4 AST 24 ALT 28 Alkaline Phosphatase 68 Total Protein 6.9 Albumin 3.5 - Imaging ITS Impressions Chest X-Ray 11/14/17 06:00 CONCLUSION: No significant change. Bilateral hazy airspace disease again noted no new consolidation. - Procedures NONE Assessment and Plan - Plan Neuro: Chronic pain Anxiety/depression -Use morphine for pain and anxiety, continue Xanax -Continue citalopram Resp: Acute hypoxemic respiratory failure-improving Interstitial lung disease/? secondary to Sjgren Acute COPD exacerbation End-stage lung disease -Pulmonary Dr. Daniel is following -IV steroids Solu-Medrol 80 mg IV every 8 hours -Empiric antibiotic with cefepime -DuoNeb every 4 hours scheduled and as needed -Possible pulmonary edema on the CXR, continue to diurese -Interstitial changes are most likely secondary to ILD ADD MUCINEX IS CV: -Pulmonary infiltrates most likely secondary to interstitial lung disease -Continue IV diuretics to attempt to improve oxygenation -Discontinue IV Lasix, start p.o. Lasix 20 SWITCH MEDS TO PO GI: -Cardiac diet, IV Protonix : -Strict intake output ID: -Continue empiric cefepime follow-up on cultures Endo: Hypothyroidism -Levothyroxine DVT GI prophylaxis -Teds SCDs -Subcu Lovenox -Pepcid Code Status: DNR Discussed Condition With: RN AND PT AND CM Discharge Planning: HOME WITH [facility] [place]
--- NOTE | 2017-11-16 11:33 | P.DS ---
Date of admission: 11/11/17 17:29 Primary care physician: Tono Delgado DO Attending physician on discharge: Satya Whitney Anticipated date of discharge: 11/16/17 Brief History from admission: 72-year-old female with end-stage COPD and interstitial lung disease was brought in by paramedics in profound respiratory distress. At home she wears 4 L of nasal cannula but with any activity she puts it up anywhere from 8-10 L. Paramedics gave her nebulizer route and IV steroids. She denies chest pain or productive cough or fever. Paramedics report that she is a DNR patient and has enrolled in [facility] hospice. No further history is obtainable due to patient respiratory distress and facemask BiPAP. Patient update on day of discharge: 72-year-old female with end-stage COPD and interstitial lung disease was brought in by paramedics in profound respiratory distress. At home she wears 4 L of nasal cannula but with any activity she puts it up anywhere from 8-10 L. Paramedics gave her nebulizer route and IV steroids. She denies chest pain or productive cough or fever. Paramedics report that she is a DNR patient and has enrolled in [facility] hospice. No further history is obtainable due to patient respiratory distress and facemask BiPAP. SUBJ 11/12: Remains on BiPAP quite tachypneic, receiving IV steroids breathing treatments antibiotics and Lasix. Chest x-ray shows bilateral significant interstitial infiltrates. I have discussed her case with Dr. Daniel oncology radiation physician yesterday. He has reported previous response to high-dose IV steroids. Continue Solu-Medrol 80 mg every 6 hours 11/13: Breathing more comfortably today currently on 6 L nasal cannula. Mild shortness of breath which is present at baseline. Subjectively patient feels improved. CODE STATUS was changed to DNR by Dr. Daniel after discussion with the patient 11-14 TRANSFERRED TO OUR SERVICE TODAY DW RN AND PT AND CM PATIENT HAS BASELINE SOB IS A DNR SLOW IMPROVEMENT NEEDS TO DISCUSS WITH PALLIATIVE CARE MAY NEED TO SWITCH HOSPICE AT [place] INSTEAD OF [facility] VERY ANXIOUS ABOUT SITUATION THAT BROUGHT HER TO THE HOSPITAL PT AND OT INCREASE ACTIVITY HAS COPD AND INTERSTITIAL LUNG DISEASE THAT BOTH APPEAR ENDSTAGE 10- HAVING ANXIETY ATTACK TODAY DW RN AND PT AND CM AND PALLIATIVE CARE JORDY DANIEL YESTERDAY HOPEFULLY HOME WITH [facility] IN NEXT 24 TO 48 HOURS 10-11 WANTS TO GO HOME NEEDS NEW WALK TEST DC TO HOME WITH [facility] AND HOSPICE TO FOLLOW DS: Diagnosis - Discharge Diagnosis (1) Anxiety Status: Chronic (2) DNR (do not resuscitate) Status: Chronic (3) DNR (do not resuscitate) discussion Status: Chronic (4) Acute and chronic respiratory failure Status: Acute (5) COPD exacerbation Status: Acute DS: Medications - Discharge Medications Prescriptions: albuterol sulfate [ProAir HFA] 2 puff INHALATION Q4H PRN #1 inh PRN Reason: Shortness Of Breath alprazolam [Xanax] 0.5 mg PO Q6HR PRN #120 tab PRN Reason: Anxiety And/Or Agitation calcium carbonate [Calcium 600] 600 mg PO BID #60 tab cefuroxime axetil 500 mg PO Q12H #12 tab celecoxib [Celebrex] 100 mg PO BID #60 cap citalopram 40 mg PO DAILY #30 tab famotidine [Pepcid] 20 mg PO BID #60 tab fluticasone 2 spray INTRANASAL DAILY #1 inh fluticasone-vilanterol [Breo Ellipta] 1 inh INHALATION DAILY #30 inh furosemide 20 mg PO DAILY #30 tab gabapentin 300 mg PO DAILY #30 cap guaifenesin [Mucinex] 600 mg PO BID #60 tab hydrocodone-acetaminophen 1 tab PO Q4-6H PRN #60 tab PRN Reason: Pain ipratropium-albuterol 1 amp NEB Q4HR NEB PRN #180 amp PRN Reason: Shortness Of Breath levothyroxine 50 mcg PO DAILY #30 tab morphine 15 mg PO Q12H #60 tab potassium chloride 20 meq PO BID #60 tab prednisone 40 mg PO BID #120 tab tizanidine [Zanaflex] 2 mg PO BID PRN #60 tab PRN Reason: MUSCLE SPAMPS DS: Summary Hospital Course: 72-year-old female with end-stage COPD and interstitial lung disease was brought in by paramedics in profound respiratory distress. At home she wears 4 L of nasal cannula but with any activity she puts it up anywhere from 8-10 L. Paramedics gave her nebulizer route and IV steroids. She denies chest pain or productive cough or fever. Paramedics report that she is a DNR patient and has enrolled in [facility] hospice. No further history is obtainable due to patient respiratory distress and facemask BiPAP. SUBJ 11/12: Remains on BiPAP quite tachypneic, receiving IV steroids breathing treatments antibiotics and Lasix. Chest x-ray shows bilateral significant interstitial infiltrates. I have discussed her case with Dr. Daniel oncology radiation physician yesterday. He has reported previous response to high-dose IV steroids. Continue Solu-Medrol 80 mg every 6 hours 11/13: Breathing more comfortably today currently on 6 L nasal cannula. Mild shortness of breath which is present at baseline. Subjectively patient feels improved. CODE STATUS was changed to DNR by Dr. Daniel after discussion with the patient 11-14 TRANSFERRED TO OUR SERVICE TODAY DW RN AND PT AND CM PATIENT HAS BASELINE SOB IS A DNR SLOW IMPROVEMENT NEEDS TO DISCUSS WITH PALLIATIVE CARE MAY NEED TO SWITCH HOSPICE AT [place] TO [place] [facility]STEAD OF [facility] VERY ANXIOUS ABOUT SITUATION THAT BROUGHT HER TO THE HOSPITAL PT AND OT INCREASE ACTIVITY HAS COPD AND INTERSTITIAL LUNG DISEASE THAT BOTH APPEAR ENDSTAGE 11-15 HAVING ANXIETY ATTACK TODAY DW RN AND PT AND CM AND PALLIATIVE CARE DW DR DANIEL YESTERDAY HOPEFULLY HOME WITH [facility] IN NEXT 24 TO 48 HOURS 11-16 WANTS TO GO HOME NEEDS NEW WALK TEST DC TO HOME WITH HHC AND HOSPICE TO FOLLOW - Time Spent with Patient Total time spent providing and/or coordinating discharge services: Greater than 30 minutes - Quality: VTE Deep Vein Thrombosis/Pulmonary Embolism Present on Admission: No Exam Vital signs: Vital Signs 11/15/17 12:00 11/15/17 14:07 11/15/17 16:13 Temperature 97.5 F L 97.8 F Pulse Rate 101 H 95 H 95 H Respiratory Rate 18 16 20 Blood Pressure 147/81 H 126/70 Pulse Oximetry 96 95 11/15/17 17:00 11/15/17 19:29 11/15/17 19:48 Temperature 97.6 F Pulse Rate 96 H 90 84 Respiratory Rate 18 20 Blood Pressure 118/61 Pulse Oximetry 93 L 97 11/15/17 20:00 11/15/17 23:18 11/16/17 00:00 Temperature 97.6 F 97.4 F L Pulse Rate 95 H 65 95 H Respiratory Rate 18 18 Blood Pressure 119/72 123/68 Pulse Oximetry 98 99 11/16/17 00:33 11/16/17 04:00 11/16/17 04:26 Temperature Pulse Rate 81 88 93 H Respiratory Rate 18 18 Blood Pressure Pulse Oximetry 11/16/17 07:37 11/16/17 08:00 11/16/17 08:51 Temperature 97.5 F L Pulse Rate 80 74 83 Respiratory Rate 16 18 Blood Pressure 112/77 Pulse Oximetry 98 99 Intake & Output 11/15/17 11/16/17 11/16/17 18:59 06:59 18:59 Intake Total 1080 / 1080 800 / 800 Balance 1080 / 1080 800 / 800 Weight 57.8 kg Intake: IV 200 / 200 Maxipime Inj 2,000 MG In NS Inj 200 / 200 100 ML @ 200 mls/hr IV.SIG Q12H GENIA Rx#:[id number] Oral 1080 / 1080 600 / 600 Other: # Voids 15 8 Date of Last Bowel Movement 11/13/17 # Bowel Movements 0 Narrative: GENERAL: AWAKE ALERT AND ORIENTED X3 -SOB ON ANY EXERTION-QUITE ANXIOUS-SPEAKS IN ONLY A FEW WORDS- VERY ANXIOUS STILL SKIN: Warm and dry. HEAD: Atraumatic. Normocephalic. EYES: Pupils equal and round. No scleral icterus. No injection or drainage. ENT: No nasal bleeding or discharge. Mucous membranes pink and moist. NECK: Trachea midline. No JVD. CARDIOVASCULAR: Regular rate and rhythm. S1, S2 NO S3 OR S4 RESPIRATORY: No accessory muscle use. COARSE BS BL FEW RHONCHI. Breath sounds equal bilaterally. GASTROINTESTINAL: Abdomen soft, non-tender, nondistended. Hepatic and splenic margins not palpable. MUSCULOSKELETAL: Extremities without clubbing, cyanosis, or edema. No obvious deformities. NEUROLOGICAL: Awake and alert. No obvious cranial nerve deficits. Motor grossly within normal limits. Five out of 5 muscle strength in the arms and legs. Normal speech. PSYCHIATRIC: Appropriate mood and affect; insight and judgment normal. Results Procedures completed during hospitalization: NONE Completed studies during hospitalization: Laboratory Results WBC 7.3 th/mm3 (4.0-11.0) 11/16/17 06:14 RBC 4.07 mil/mm3 (4.00-5.30) 11/16/17 06:14 Hgb 13.7 gm/dL (11.6-15.3) 11/16/17 06:14 Hct 39.9 % (35.0-46.0) 11/16/17 06:14 MCV 97.9 fL (80.0-100.0) 11/16/17 06:14 MCH 33.7 pg (27.0-34.0) 11/16/17 06:14 MCHC 34.4 % (32.0-36.0) 11/16/17 06:14 RDW 16.1 % (11.6-17.2) 11/16/17 06:14 Plt Count 198 th/mm3 (150-450) 11/16/17 06:14 MPV 7.6 fL (7.0-11.0) 11/16/17 06:14 Prelim Diff (Auto) Slide review pending 11/16/17 06:14 Neut % (Auto) 83.2 % (16.0-70.0) H 11/16/17 06:14 Lymph % (Auto) 8.6 % (9.0-44.0) L 11/16/17 06:14 [place] % (Auto) 7.2 % (0.0-8.0) 11/16/17 06:14 Eos % (Auto) 0.3 % (0.0-4.0) 11/16/17 06:14 Baso % (Auto) 0.7 % (0.0-2.0) 11/16/17 06:14 Neut # (Auto) 6.0 th/mm3 (1.8-7.7) 11/16/17 06:14 Lymph # (Auto) 0.6 th/mm3 (1.0-4.8) L 11/16/17 06:14 [place] # (Auto) 0.5 th/mm3 (0.0-0.9) 11/16/17 06:14 Eos # (Auto) 0.0 th/mm3 (0.0-0.4) 11/16/17 06:14 Baso # (Auto) 0.0 th/mm3 (0.0-0.2) 11/16/17 06:14 WBC Differential Manual diff final 11/16/17 06:14 Diff Scan Auto diff confirmed 11/11/17 15:50 Seg Neuts % (Manual) 74 % (16-70) H 11/16/17 06:14 Band Neuts % (Manual) 8 % (0-6) H 11/16/17 06:14 Lymphocytes % (Manual) 7 % (9-44) L 11/16/17 06:14 Monocytes % (Manual) 6 % (0-8) 11/16/17 06:14 Metamyelocytes % (Man) 3 % (0-1) H 11/16/17 06:14 Myelocytes % (Man) 2 % (0-0) H 11/16/17 06:14 Abs Neuts (Manual) 6.4 th/mm3 (1.8-7.7) 11/16/17 06:14 Nucleated RBCs/100 WBC 1 /100 WBC (0-0) H 11/12/17 03:47 Differential Comment . 11/16/17 06:14 Toxic Granulation 2+ (None) H 11/16/17 06:14 Platelet Estimate Normal (Normal) 11/16/17 06:14 Platelet Morphology Normal (Normal) 11/16/17 06:14 RBC Morphology Normal (Normal) 11/16/17 06:14 Basophilic Stippling Faint (None) H 11/12/17 03:47 Spherocytes 1+ (None) H 11/12/17 03:47 Ovalocytes 1+ (None) H 11/12/17 03:47 Puncture Site Left radial 11/11/17 17:10 Patient Temperature 98.6 11/11/17 17:10 O2 Saturation 94 % (90-100) 11/11/17 17:10 ABG pH 7.49 (7.380-7.420) H 11/11/17 17:10 ABG pCO2 30 mmHg (38-42) L 11/11/17 17:10 ABG pO2 80 mmHg (61-120) 11/11/17 17:10 ABG HCO3 22 mmol/L (22-26) 11/11/17 17:10 ABG O2 Content 17.6 Vol % (12.0-20.0) 11/11/17 17:10 ABG Base Excess -0.5 mmol/L (-2-2) 11/11/17 17:10 ABG Methemoglobin 0.5 % (0-2) 11/11/17 17:10 [place] Test Y 11/11/17 17:10 Hemoglobin 13.3 G/DL (12.0-16.0) 11/11/17 17:10 Carboxyhemoglobin 1.9 % (0-4) 11/11/17 17:10 O2 Delivery Device Bipap 11/11/17 17:10 Vent Setting Ipap 15 epap 5 11/11/17 17:10 Inspired O2 50 % 11/11/17 17:10 Critical Value No 11/11/17 17:10 Sodium 133 meq/L (136-145) L 11/16/17 06:14 Potassium 4.5 meq/L (3.5-5.1) 11/16/17 06:14 Chloride 97 meq/L (98-107) L 11/16/17 06:14 Carbon Dioxide 28.0 meq/L (21.0-32.0) 11/16/17 06:14 Anion Gap 8 meq/L (5-15) 11/16/17 06:14 BUN 25 mg/dL (7-18) H 11/16/17 06:14 Creatinine 0.65 mg/dL (0.50-1.00) 11/16/17 06:14 Estimated GFR Greater than 89 mL/min (>89) 11/16/17 06:14 Random Glucose 138 mg/dL (74-106) H 11/16/17 06:14 Hemoglobin A1c 5.3 % (4.3-6.0) 11/15/17 04:35 Calcium 9.6 mg/dL (8.5-10.1) 11/16/17 06:14 Phosphorus 3.2 mg/dL (2.5-4.9) 11/16/17 06:14 Magnesium 2.3 mg/dL (1.5-2.5) 11/16/17 06:14 Total Bilirubin 0.4 mg/dL (0.2-1.0) 11/16/17 06:14 AST 24 U/L (15-37) 11/16/17 06:14 ALT 28 U/L (10-53) 11/16/17 06:14 Alkaline Phosphatase 68 U/L (45-117) 11/16/17 06:14 Total Protein 6.9 g/dL (6.4-8.2) 11/16/17 06:14 Albumin 3.5 g/dL (3.4-5.0) 11/16/17 06:14 TSH 1.260 uIU/mL (0.358-3.740) 11/15/17 04:35 Free T4 0.84 ng/dL (0.76-1.46) 11/15/17 04:35 Nasal Screen MRSA (PCR) Not detected (Negative) 11/11/17 21:15 Impressions Chest X-Ray 11/14/17 06:00 CONCLUSION: No significant change. Bilateral hazy airspace disease again noted no new consolidation. Labs on day of discharge: Labs from last 24 hours 11/16/17 11/16/17 11/15/17 06:14 06:14 04:35 WBC 7.3 RBC 4.07 Hgb 13.7 Hct 39.9 MCV 97.9 MCH 33.7 MCHC 34.4 RDW 16.1 Plt Count 198 MPV 7.6 Prelim Diff (Auto) Slide review pending Neut % (Auto) 83.2 H Lymph % (Auto) 8.6 L [place] % (Auto) 7.2 Eos % (Auto) 0.3 Baso % (Auto) 0.7 Neut # (Auto) 6.0 Lymph # (Auto) 0.6 L [place] # (Auto) 0.5 Eos # (Auto) 0.0 Baso # (Auto) 0.0 WBC Differential Manual diff final Seg Neuts % (Manual) 74 H Band Neuts % (Manual) 8 H Lymphocytes % (Manual) 7 L Monocytes % (Manual) 6 Metamyelocytes % (Man) 3 H Myelocytes % (Man) 2 H Abs Neuts (Manual) 6.4 Differential Comment . Toxic Granulation 2+ H Platelet Estimate Normal Platelet Morphology Normal RBC Morphology Normal Sodium 133 L Potassium 4.5 Chloride 97 L Carbon Dioxide 28.0 Anion Gap 8 BUN 25 H Creatinine 0.65 Estimated GFR Greater than 89 Random Glucose 138 H Hemoglobin A1c 5.3 Calcium 9.6 Phosphorus 3.2 Magnesium 2.3 Total Bilirubin 0.4 AST 24 ALT 28 Alkaline Phosphatase 68 Total Protein 6.9 Albumin 3.5 - Impressions ITS Impressions Chest X-Ray 11/14/17 06:00 CONCLUSION: No significant change. Bilateral hazy airspace disease again noted no new consolidation. Discharge Plan - Discharge Disposition Patient Disposition: W/Home Health Service - Discharge Condition Condition: Fair - Discharge Order Discharge Orders: Discharge Order (Routine); Ordered 11/16/17 Ordered By: Satya Whitney - Discharge Details Anticipated Discharge Date: 11/16/17 Discharge Comment: DC TO HOME WITH [facility] - Physicians Team Primary Care Provider: Tono Delgado Attending Provider: Satya Whitney Other Providers: Lan Voss MD ; Satya Daniel MD
[2017-11-16 12:42] VITALS: BP 123/77; TEMP 97.1; O2SAT 98
[2017-11-16 14:20] VITALS: PULSE 98; RESP 16
== END 2017-11-16 14:45 | disposition home health service (06) ==
LOC: NEPC 15:21 → NEDA 17:29 → HIMC 21:00 → N04 11-13 16:02
PROVIDERS: ADMIT Hospitalist; ATTEND Hospitalist